=== PATIENT | female | born 1990 | race Two or more races ===

== ENCOUNTER → 2019-06-08 | Outpatient (REF) | payer OTHER ==
[2019-06-08 14:17] LABS: FREE T4 0.93 NG/DL (0.76-1.46)
[2019-06-09 08:52] LABS: THYROID PEROXIDASE ANTIBODY > 1300.0 U/ML (<60.0)
== END ==
LOC: M LABDRAW1 12:50
PROVIDERS: ATTEND Nurse Practitioner Family
DX: E06.3 Autoimmune thyroiditis (principal)

== ENCOUNTER → 2019-06-25 | Outpatient (CLI) | payer OTHER ==
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
== END ==
LOC: M PAIN 15:00
PROVIDERS: ATTEND Anesthesiology
DX: M54.5 Low back pain (principal); G89.29 Other chronic pain; M79.18 Myalgia, other site; Z86.59 Personal history of other mental and behavioral disorders; G47.00 Insomnia, unspecified; G43.909 Migraine, unspecified, not intractable, without status migrainosus; Z88.1 Allergy status to other antibiotic agents; Z88.5 Allergy status to narcotic agent; Z79.899 Other long term (current) drug therapy

== ENCOUNTER → 2019-06-28 | Outpatient (CLI) | payer OTHER ==
--- NOTE | 2019-06-28 13:11 | REP ---
Clinical: Pain. Status post ganglion cyst removal. Technique: AP and lateral views of the left wrist. Comparison: None. Findings: Osseous structures, joint spaces, and surrounding soft tissues appear normal. No obvious abnormality. Impression: Normal left wrist radiographs. Electronically Signed by Lionel Daniel MD 06/28/2019 01:02 P
== END ==
LOC: M LRY 12:47
PROVIDERS: ATTEND Nurse Practitioner Family
DX: Z98.890 Other specified postprocedural states (principal)
CPT/HCPCS: 73100; G0463

== ENCOUNTER → 2019-07-14 | Outpatient (CLI) | payer OTHER ==
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
== END ==
LOC: M PAIN 11:00
PROVIDERS: ATTEND Nurse Practitioner Family
DX: M79.18 Myalgia, other site (principal); Z86.59 Personal history of other mental and behavioral disorders; G47.00 Insomnia, unspecified; G43.909 Migraine, unspecified, not intractable, without status migrainosus; Z88.1 Allergy status to other antibiotic agents; Z88.5 Allergy status to narcotic agent; E66.01 Morbid (severe) obesity due to excess calories; Z68.42 Body mass index [BMI] 45.0-49.9, adult; Z79.899 Other long term (current) drug therapy

== ENCOUNTER → 2019-07-20 | Outpatient (CLI) | payer OTHER ==
[~2019-07-20] MED LIST: BUPIVACAINE HCL 0.25% 10 ML VIAL As Ordered ONE; BUPIVACAINE HCL 0.25% 30 ML VIAL As Ordered ONE; TRIAMCINOLONE ACETONIDE SUSP 40 MG/ML VIAL (J3301) As Ordered ONE; diazePAM 5 MG TAB As Ordered ONE; oxyCODONE 5MG TAB As Ordered ONE
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
== END ==
LOC: M PAIN 09:45
PROVIDERS: ATTEND Anesthesiology
DX: M79.18 Myalgia, other site (principal)
CPT/HCPCS: 20552; J3301

== ENCOUNTER → 2019-08-06 | Outpatient (CLI) | payer OTHER ==
--- NOTE | 2019-08-20 02:50 | ECWPNPC ---
PATIENT NAME: DIVINA CAI : 1990 GENDER: FEMALE VISIT DATE: 08/06/2019 DISCHARGE DATE: 08/06/19 1418 VISIT LOCKED DATE TIME: PHYSICIAN: CHAVEZ OSEGUERA RESOURCE: CHAVEZ OSEGUERA REASON FOR APPOINTMENT 1. POST TPI HISTORY OF PRESENT ILLNESS HISTORY OF PRESENT ILLNESS: HERE FOR POST PROCEDURE F/U.HAD TPI ACROSS LOW BACK ON 07/20/19.REPORTING A FEW DAYS OF IMPROVEMENT THEN PAIN ABRUPTLY RETURNED.SHE IS VERY UNCOMFORTABLE TODAY.STATES SHE HAS A MIGRAINE AND GETS THESES FREQUENTLY.HAS NOT HAD FORMAL TREATMENT FOR THEM IN HER PAST.RATING PAIN VAS 5-8/10.ATTENDING PT PER OUR ORDER AND HAVING A LITTLE AGGREVATION IN PAIN BUT SHE WANTS TO SEE HOW IT GOES SHE JUST GOT STARTED.REVIEWED MRIL/S SPINE AND DISCUSSED TREATMENT OPTIONS. PAIN THE PATIENT DESCRIBES THE PAIN... FALL RISK SCREENING: SCREENING :NO FALLS REPORTED IN THE LAST YEAR CURRENT MEDICATIONS TAKING AMITRIPTYLINE HCL 25 MG TABLET 1 TABLET AT BEDTIME ORALLY BEFORE BEDTIME, NOTES: 07/18/192099 PAST MEDICAL HISTORY DEPPRESSION/ANXIETY ISOMNIA HASHIMODOS CHRONIC PIN MIGRAINES ALLERGIES CEPHALEXIN: NAUSEA, VOMITING, SWEATING - SIDE EFFECTS HYDROCODONE-ACETAMINOPHEN: INCREASED HR, SWEATS - ALLERGY HYDROMORPHONE HCL: NAUSEA/VOMITING - SIDE EFFECTS CEPHALEXIN: INCREASED HR, SWEATS - ALLERGY HYDROCODONE-ACETAMINOPHEN: NAUSEA/VOMITING - SIDE EFFECTS SURGICAL HISTORY CYST REMOVED OFF LEFT WRIST 04/2018 GALLBLADDER GALLBLADDER REMOVED 08/2013 GANGLION CYST LEFT FAMILY HISTORY FATHER: ALIVE MOTHER: ALIVE 56 YRS SIBLINGS: ALIVE SON(S): ALIVE DAUGHTER(S): ALIVE 1 BROTHER(S) - HEALTHY. 1 SON(S) , 1 DAUGHTER(S) - HEALTHY. SOCIAL HISTORY GENERAL: TOBACCO USE ARE YOU A:NONSMOKER ARE YOU A:NONSMOKER HIV / HEP-C SCREENING HIV TEST OFFERED TO PATIENT:YES HIV TEST OFFERED TO PATIENT:YES DATE OFFERED:08/22/2018 DATE OFFERED:04/15/2019 TEST ACCEPTED:NO TEST ACCEPTED:NO HEP-C TEST OFFERED TO PATIENT:NO HEP-C TEST OFFERED TO PATIENT:NO REASON:PATIENT DECLINED REASON:PATIENT DECLINED BROCHURE PROVIDED TO PATIENTNO BROCHURE PROVIDED TO PATIENTYES OTHERS AT HOME: SPOUSE, CHILDREN. HOUSING: OWNS HOME. EDUCATION LEVEL OF EDUCATION:FINISHED HIGH SCHOOL DIET: REGULAR. LANGUAGE LANGUAGES SPOKEN:ROMANSH DOMESTIC VIOLENCE DO YOU FEEL SAFE IN YOUR ENVIRONMENT?YES RECREATIONAL DRUG USE DRUG USE?YES DRUG USE?YES MARIJUANA ON OCCASSION " NOT OFTEN" HOW OFTEN AND HOW MUCH? MARIJUANA - WHEN SHE IS VISITING [employer]. EXERCISE: DAILY. LEARNING BARRIERS / SPECIAL NEEDS CHANGE FROM LAST VISIT?NO BARRIERS TO LEARNING?NO BARRIERS TO LEARNING?NO HEARING IMPAIRED?NO HEARING IMPAIRED?NO VISION IMPAIRED?YES VISION IMPAIRED?YES COGNITIVELY IMPAIRED?NO COGNITIVELY IMPAIRED?NO :CORRECTIVE LENSES :CORRECTIVE LENSES READINESS TO LEARN?YES READINESS TO LEARN?YES LEARNING PREFERENCES?NO LEARNING PREFERENCES?NO LEARNING CAPABILITIES PRESENT?YES LEARNING CAPABILITIES PRESENT?YES EMOTIONAL BARRIERS?NO EMOTIONAL BARRIERS?NO SPECIAL DEVICES?NO SPECIAL DEVICES?NO ACCOUNTS PAYABLE SPECIALIST NEEDED?NO ACCOUNTS PAYABLE SPECIALIST NEEDED?NO PAIN CLINIC PFS, CLERGY, PUBLIC HEALTH REFERRALS HAS THE PATIENT BEEN EDUCATED REGARDING HIS/HER PLAN OF CARE?YES PATIENT EDUCATED REGARDING TPI PROCEDURE, ACKNOWLEDGED UNDERSTANDING HAS THE PATIENT BEEN EDUCATED REGARDING PAIN, THE RISK FOR PAIN, THE IMPORTANCE OF EFFECTIVE PAIN MANAGEMENT, AND THE PAIN ASSESSMENT PROCESS?YES LATEX QUESTIONNAIRE LATEX ALLERGY : HAVE YOU EVER DEVELOPED ANY TYPE OF REACTION AFTER HANDLING LATEX PRODUCTS SUCH RUBBER GLOVES, CONDOMS, DIAPHRAGMS, BALLOONS, SOCKS, OR UNDERWEAR?NO LATEX ALLERGY : HAVE YOU EVER DEVELOPED ANY TYPE OF REACTION DURING OR AFTER DENTAL APPOINTMENT, VAGINAL/RECTAL EXAMINATION, SURGICAL PROCEDURE, OR ANY OTHER EXPOSURE?NO DATE ASKED : 07/20/2019 LATEX RISK : HAVE YOU EVER HAD ANY DIFFICULTY BREATHING OR HIVES AFTER EATING OR HANDLING ANY FRUITS, OR VEGETABLES; SUCH KIWI, BANANAS, STONE FRUITS, OR CHESTNUTSNO LATEX RISK : DO YOU HAVE A PREVIOUS PERSONAL HISTORY OF MORE THAN NINE SURGERIES, SPINA BIFIDA, OR REPEATED CATHERIZATIONS? NO LATEX RISK : ARE YOU FREQUENTLY EXPOSED TO LATEX PRODUCTS IN YOUR OCCUPATION?NO CAFFEINE CAFFEINE USE?YES CAFFEINE USE?YES SODA AND TEA DAILY HOW OFTEN AND HOW MUCH? SODA, TEA ADVANCE DIRECTIVE ADVANCE DIRECTIVE DISCUSSED WITH PATIENT:YES PT STATES THAT SHE DOES NOT HAVE HCP, PT DECLINES ASSISTANCE OR INFORMATION AT THIS TIME JAINISM [id number] NONE MARITAL STATUS: . ALCOHOL SCREENING DID YOU HAVE A DRINK CONTAINING ALCOHOL IN THE PAST YEAR?YES DID YOU HAVE A DRINK CONTAINING ALCOHOL IN THE PAST YEAR?YES HOW OFTEN DID YOU HAVE SIX OR MORE DRINKS ON ONE OCCASION IN THE PAST YEAR?NEVER (0 POINTS) HOW MANY DRINKS DID YOU HAVE ON A TYPICAL DAY WHEN YOU WERE DRINKING IN THE PAST YEAR?1 OR 2 (0 POINTS) HOW MANY DRINKS DID YOU HAVE ON A TYPICAL DAY WHEN YOU WERE DRINKING IN THE PAST YEAR?1 OR 2 (0 POINTS) HOW OFTEN DID YOU HAVE A DRINK CONTAINING ALCOHOL IN THE PAST YEAR?MONTHLY OR LESS (1 POINT) HOW OFTEN DID YOU HAVE A DRINK CONTAINING ALCOHOL IN THE PAST YEAR?MONTHLY OR LESS (1 POINT) POINTS1 POINTS1 INTERPRETATIONNEGATIVE INTERPRETATIONNEGATIVE 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 SEXUAL HX HAD SEX IN THE LAST 12 MONTHS (VAGINAL, ORAL, OR ANAL)?YES WITHMEN ONLY USE PROTECTION?YES HOW OFTEN?SOME OF THE TIME HAVE YOU EVER HAD AN STD?NO REVIEWED WITH PATIENT 07/20/19 1052 NLJ. HOSPITALIZATION/MAJOR DIAGNOSTIC PROCEDURE ABOVE REVIEW OF SYSTEMS REVIEWED BY: PROVIDER: CHAVEZ PEREZ . CONSTITUTIONAL: ANY CHANGE IN YOUR MEDICAL CONDITION? NO . CHILLS NO . FEVER NO . INFECTION: DO YOU HAVE NEW INFECTIONS? NO . DO YOU HAVE HISTORY OF MRSA? NO . MUSCULOSKELETAL: ANY NEW PATTERNS OF PAIN OR NUMBNESS? NO . GASTROENTEROLOGY: ANY NEW CHANGE IN BOWEL CONTROL? NO . GENITOURINARY: ANY NEW CHANGE IN BLADDER CONTROL? NO . IS THERE A CHANCE YOU COULD BE ? NO . HEMATOLOGY/LYMPH: DO YOU TAKE ANY BLOOD THINNERS? (FOR EXAMPLE- COUMADIN, PLAVIX, AGGRENOX, PLATEL, PRADAXA, OR XARELTO) NO . WHEN WAS YOUR LAST DOSE? DATE: TIME: . NEUROLOGY: HAVE YOU FALLEN IN THE PAST 12 MONTHS? NO . ANY NEW EXTREMITY NUMBNESS OR WEAKNESS? NO . CARDIOLOGY: DO YOU HAVE A PACEMAKER OR DEFIBRILLATOR? NO . RESPIRATORY: HAVE YOU BEEN SICK IN THE PAST WEEK? NO . FEVER NO . FLU LIKE SYMPTOMS? NO . COUGH NO . INTEGUMENTARY: DO YOU HAVE ANY RASHES OR OPEN SORES? NO . ALLERGIC/IMMUNO: ARE YOU ALLERGIC TO IV DYE? NO . ANY NEW ALLERGIES? NO . PSYCHIATRIC: DO YOU HAVE THOUGHTS OF HURTING YOURSELF OR SOMEONE ELSE? NO . ARE YOU ABUSED, NEGLECTED, OR IN AN UNSAFE ENVIRONMENT? NO . ENDOCRINOLOGY: ARE YOU DIABETIC? NO . OTHER: DO YOU NEED ANY PRESCRIPTIONS? NO . IF YES, PLEASE LIST: ____ . ANY NEW PROBLEMS WITH YOUR MEDICATIONS? NO . WHEN DID YOU LAST EAT? ____ . WHEN DID YOU LAST DRINK? ____ . WHAT DID YOU LAST DRINK? ____ . NAME OF PERSON DRIVING YOU HOME? ____ . DO YOU HAVE ANY OTHER QUESTIONS OR CONCERNS NO . VITAL SIGNS WT 158.0 LBS, HT 4'10, BMI 48.21 INDEX, BP 139/86 MM HG, HR 87 /MIN, RR 18 /MIN, TEMP 98.5 F, OXYGEN SAT % 98%, SAFE IN ENV? (Y/N) YES, NA INITIALS AW 1326. EXAMINATION GENERAL EXAMINATION: GENERAL AWAKE,ALERT ,PLEASANT . PSYCH AFFECT NORMAL . LUNGS: LUNG VILLAGOMEZ ARE CLEAR TO AUSCULTATION BILATERALLY. GOOD MOVEMENT OF AIR . HEART: S1, S2 IN A REGULAR RATE AND RHYTHM. NO SIGNIFICANT MURMURS, RUBS OR GALLOPS NOTED . DIAGNOSTIC TESTS REVIEWED MRI L/S SPINE-09/24/18. 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 IT IS NOT A COPY OF THE [employer] PROGRESS NOTE. GUILHERME
== END ==
LOC: M PAIN 13:15
PROVIDERS: ATTEND Nurse Practitioner Family
DX: M79.18 Myalgia, other site (principal); G44.009 Cluster headache syndrome, unspecified, not intractable; Z86.59 Personal history of other mental and behavioral disorders; G47.00 Insomnia, unspecified; Z88.1 Allergy status to other antibiotic agents; Z88.5 Allergy status to narcotic agent; E66.01 Morbid (severe) obesity due to excess calories; Z68.42 Body mass index [BMI] 45.0-49.9, adult; Z79.899 Other long term (current) drug therapy

== ENCOUNTER → 2019-08-18 | Outpatient (CLI) | payer OTHER ==
--- NOTE | 2019-08-18 10:07 | REP ---
Gastric emptying nuclear scintigraphy: History: Early satiety and nausea. Technique: 1.1 mCi of technetium-99m sulfur colloid was ingested in two scrambled eggs and 6 ounces of water and sequential anterior and posterior images are acquired for an 89-minute imaging observation period. Regions of interest are drawn around the stomach to plot gastric emptying. Scintigraphic findings: Expected T1/2 is 90 minutes. 50 % emptying is observed in this patient during the 89-minute imaging observation period, for a calculated T1/2 in this patient of 80 minutes. Impression: Normal gastric emptying. Electronically Signed by Cash Ramirez MD 08/18/2019 09:58 A
== END ==
LOC: M RAD 07:46
PROVIDERS: ATTEND Physician Assistant Medical
DX: R68.81 Early satiety (principal); R11.0 Nausea
CPT/HCPCS: 78264; A9541

== ENCOUNTER → 2019-08-31 | Outpatient (RCR) | payer OTHER | LOC: M PT 08-03 12:12 | PROVIDERS: ATTEND Nurse Practitioner Family | DX: M79.18 Myalgia, other site (principal) ==

== ENCOUNTER → 2019-09-17 | Outpatient (CLI) | payer OTHER ==
[~2019-09-17] MED LIST changes: +AMIT25TA PO; -BUPIVACAINE HCL 0.25% 10 ML VIAL As Ordered ONE; -BUPIVACAINE HCL 0.25% 30 ML VIAL As Ordered ONE; +TOPI25TA10 PO; -TRIAMCINOLONE ACETONIDE SUSP 40 MG/ML VIAL (J3301) As Ordered ONE; -diazePAM 5 MG TAB As Ordered ONE; -oxyCODONE 5MG TAB As Ordered ONE
--- NOTE | 2019-10-05 04:17 | ECWPNPC ---
PATIENT NAME: DIVINA CAI : 1990 GENDER: FEMALE VISIT DATE: 09/17/2019 DISCHARGE DATE: 09/17/19 1132 VISIT LOCKED DATE TIME: PHYSICIAN: CHAVEZ OSEGUERA RESOURCE: CHAVEZ OSEGUERA REASON FOR APPOINTMENT 1. BACK PAIN HISTORY OF PRESENT ILLNESS HISTORY OF PRESENT ILLNESS: HERE FOR FOLLOW-UP OF CHRONIC BACK PAIN. STARTED TOPAMAX 25 MG TWICE A DAY AT LAST VISIT. REPORTING LESS FREQUENT MIGRAINE HEADACHE. ATTENDING PHYSICAL THERAPY FOR LOW BACK PAIN AND SHE FINDS IT HELPFUL. REPORTING SEVERE TIGHTNESS IN THE UPPER BACK REGION. RATING PAIN LEVEL 6-7/10 VAS. PAIN THE PATIENT DESCRIBES THE PAIN... FALL RISK SCREENING: SCREENING :NO FALLS REPORTED IN THE LAST YEAR CURRENT MEDICATIONS TAKING AMITRIPTYLINE HCL 25 MG TABLET 1 TABLET AT BEDTIME ORALLY BEFORE BEDTIME TAKING TOPAMAX 25 MG TABLET 1 TABLET ORALLY BID MEDICATION LIST REVIEWED AND RECONCILED WITH THE PATIENT PAST MEDICAL HISTORY MEDICAL HISTORY VERIFIED. ALLERGIES CEPHALEXIN: NAUSEA, VOMITING, SWEATING - SIDE EFFECTS HYDROCODONE-ACETAMINOPHEN: INCREASED HR, SWEATS - ALLERGY HYDROMORPHONE HCL: NAUSEA/VOMITING - SIDE EFFECTS CEPHALEXIN: INCREASED HR, SWEATS - ALLERGY HYDROCODONE-ACETAMINOPHEN: NAUSEA/VOMITING - SIDE EFFECTS SURGICAL HISTORY CYST REMOVED OFF LEFT WRIST 04/2018 GALLBLADDER GALLBLADDER REMOVED 08/2013 GANGLION CYST LEFT FAMILY HISTORY FATHER: ALIVE MOTHER: ALIVE 56 YRS SIBLINGS: ALIVE SON(S): ALIVE DAUGHTER(S): ALIVE 1 BROTHER(S) - HEALTHY. 1 SON(S) , 1 DAUGHTER(S) - HEALTHY. SOCIAL HISTORY GENERAL: TOBACCO USE ARE YOU A:NONSMOKER ARE YOU A:NONSMOKER HIV / HEP-C SCREENING HIV TEST OFFERED TO PATIENT:YES HIV TEST OFFERED TO PATIENT:YES DATE OFFERED:08/22/2018 DATE OFFERED:04/15/2019 TEST ACCEPTED:NO TEST ACCEPTED:NO HEP-C TEST OFFERED TO PATIENT:NO HEP-C TEST OFFERED TO PATIENT:NO REASON:PATIENT DECLINED REASON:PATIENT DECLINED BROCHURE PROVIDED TO PATIENTNO BROCHURE PROVIDED TO PATIENTYES OTHERS AT HOME: SPOUSE, CHILDREN. HOUSING: OWNS HOME. EDUCATION LEVEL OF EDUCATION:FINISHED HIGH SCHOOL DIET: REGULAR. LANGUAGE LANGUAGES SPOKEN:[place] DOMESTIC VIOLENCE DO YOU FEEL SAFE IN YOUR ENVIRONMENT?YES RECREATIONAL DRUG USE DRUG USE?YES DRUG USE?YES MARIJUANA ON OCCASSION " NOT OFTEN" HOW OFTEN AND HOW MUCH? MARIJUANA - WHEN SHE IS VISITING [place]. EXERCISE: DAILY. LEARNING BARRIERS / SPECIAL NEEDS CHANGE FROM LAST VISIT?NO BARRIERS TO LEARNING?NO BARRIERS TO LEARNING?NO HEARING IMPAIRED?NO HEARING IMPAIRED?NO VISION IMPAIRED?YES VISION IMPAIRED?YES COGNITIVELY IMPAIRED?NO COGNITIVELY IMPAIRED?NO :CORRECTIVE LENSES :CORRECTIVE LENSES READINESS TO LEARN?YES READINESS TO LEARN?YES LEARNING PREFERENCES?NO LEARNING PREFERENCES?NO LEARNING CAPABILITIES PRESENT?YES LEARNING CAPABILITIES PRESENT?YES EMOTIONAL BARRIERS?NO EMOTIONAL BARRIERS?NO SPECIAL DEVICES?NO SPECIAL DEVICES?NO GENERAL PARTNER NEEDED?NO GENERAL PARTNER NEEDED?NO PAIN CLINIC PFS, CLERGY, PUBLIC HEALTH REFERRALS WAS THE PROVIDER NOTIFIED OF ANY PERTINENT INFO?YES HAS THE PATIENT BEEN EDUCATED REGARDING HIS/HER PLAN OF CARE?YES PATIENT EDUCATED REGARDING TPI PROCEDURE, ACKNOWLEDGED UNDERSTANDING HAS THE PATIENT BEEN EDUCATED REGARDING PAIN, THE RISK FOR PAIN, THE IMPORTANCE OF EFFECTIVE PAIN MANAGEMENT, AND THE PAIN ASSESSMENT PROCESS?YES LATEX QUESTIONNAIRE LATEX ALLERGY : HAVE YOU EVER DEVELOPED ANY TYPE OF REACTION AFTER HANDLING LATEX PRODUCTS SUCH RUBBER GLOVES, CONDOMS, DIAPHRAGMS, BALLOONS, SOCKS, OR UNDERWEAR?NO LATEX ALLERGY : HAVE YOU EVER DEVELOPED ANY TYPE OF REACTION DURING OR AFTER DENTAL APPOINTMENT, VAGINAL/RECTAL EXAMINATION, SURGICAL PROCEDURE, OR ANY OTHER EXPOSURE?NO LATEX RISK : HAVE YOU EVER HAD ANY DIFFICULTY BREATHING OR HIVES AFTER EATING OR HANDLING ANY FRUITS, OR VEGETABLES; SUCH KIWI, BANANAS, STONE FRUITS, OR CHESTNUTSNO LATEX RISK : DO YOU HAVE A PREVIOUS PERSONAL HISTORY OF MORE THAN NINE SURGERIES, SPINA BIFIDA, OR REPEATED CATHERIZATIONS? NO LATEX RISK : ARE YOU FREQUENTLY EXPOSED TO LATEX PRODUCTS IN YOUR OCCUPATION?NO DATE ASKED : 09/17/2019 CAFFEINE CAFFEINE USE?YES CAFFEINE USE?YES SODA AND TEA DAILY HOW OFTEN AND HOW MUCH? SODA, TEA ADVANCE DIRECTIVE ADVANCE DIRECTIVE DISCUSSED WITH PATIENT:YES PT STATES THAT SHE DOES NOT HAVE HCP, PT DECLINES ASSISTANCE OR INFORMATION AT THIS TIME RELIGIOUS [id number] NONE MARITAL STATUS: . ALCOHOL SCREENING DID YOU HAVE A DRINK CONTAINING ALCOHOL IN THE PAST YEAR?YES DID YOU HAVE A DRINK CONTAINING ALCOHOL IN THE PAST YEAR?YES HOW OFTEN DID YOU HAVE SIX OR MORE DRINKS ON ONE OCCASION IN THE PAST YEAR?NEVER (0 POINTS) HOW MANY DRINKS DID YOU HAVE ON A TYPICAL DAY WHEN YOU WERE DRINKING IN THE PAST YEAR?1 OR 2 (0 POINTS) HOW MANY DRINKS DID YOU HAVE ON A TYPICAL DAY WHEN YOU WERE DRINKING IN THE PAST YEAR?1 OR 2 (0 POINTS) HOW OFTEN DID YOU HAVE A DRINK CONTAINING ALCOHOL IN THE PAST YEAR?MONTHLY OR LESS (1 POINT) HOW OFTEN DID YOU HAVE A DRINK CONTAINING ALCOHOL IN THE PAST YEAR?MONTHLY OR LESS (1 POINT) POINTS1 POINTS1 INTERPRETATIONNEGATIVE INTERPRETATIONNEGATIVE 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 SEXUAL HX HAD SEX IN THE LAST 12 MONTHS (VAGINAL, ORAL, OR ANAL)?YES WITHMEN ONLY USE PROTECTION?YES HOW OFTEN?SOME OF THE TIME HAVE YOU EVER HAD AN STD?NO REVIEWED WITH PATIENT 07/20/19 1052 [id number] REVIEWED WITH PATIENT DS. HOSPITALIZATION/MAJOR DIAGNOSTIC PROCEDURE ABOVE REVIEW OF SYSTEMS REVIEWED BY: PROVIDER: CHAVEZ PEREZ . CONSTITUTIONAL: ANY CHANGE IN YOUR MEDICAL CONDITION? NO . CHILLS NO . FEVER NO . INFECTION: DO YOU HAVE NEW INFECTIONS? NO . DO YOU HAVE HISTORY OF MRSA? NO . MUSCULOSKELETAL: ANY NEW PATTERNS OF PAIN OR NUMBNESS? NO . GASTROENTEROLOGY: ANY NEW CHANGE IN BOWEL CONTROL? NO . GENITOURINARY: ANY NEW CHANGE IN BLADDER CONTROL? NO . IS THERE A CHANCE YOU COULD BE ? NO . HEMATOLOGY/LYMPH: DO YOU TAKE ANY BLOOD THINNERS? (FOR EXAMPLE- COUMADIN, PLAVIX, AGGRENOX, PLATEL, PRADAXA, OR XARELTO) NO . WHEN WAS YOUR LAST DOSE? DATE: TIME: . NEUROLOGY: HAVE YOU FALLEN IN THE PAST 12 MONTHS? NO . ANY NEW EXTREMITY NUMBNESS OR WEAKNESS? YES, PT STATES THAT SHE RECEIVED INJECTION BEFORE , DIDNT RECEIVE MUCH RELIEF, LASTED ONLY FOR 1 WEEK, PAIN HAS RETURNED . CARDIOLOGY: DO YOU HAVE A PACEMAKER OR DEFIBRILLATOR? NO . RESPIRATORY: HAVE YOU BEEN SICK IN THE PAST WEEK? NO . FEVER NO . FLU LIKE SYMPTOMS? NO . COUGH NO . INTEGUMENTARY: DO YOU HAVE ANY RASHES OR OPEN SORES? NO . ALLERGIC/IMMUNO: ARE YOU ALLERGIC TO IV DYE? NO . ANY NEW ALLERGIES? NO . PSYCHIATRIC: DO YOU HAVE THOUGHTS OF HURTING YOURSELF OR SOMEONE ELSE? NO . ARE YOU ABUSED, NEGLECTED, OR IN AN UNSAFE ENVIRONMENT? NO . ENDOCRINOLOGY: ARE YOU DIABETIC? NO . OTHER: DO YOU NEED ANY PRESCRIPTIONS? NO . IF YES, PLEASE LIST: ____ . ANY NEW PROBLEMS WITH YOUR MEDICATIONS? NO . WHEN DID YOU LAST EAT? ____ . WHEN DID YOU LAST DRINK? ____ . WHAT DID YOU LAST DRINK? ____ . NAME OF PERSON DRIVING YOU HOME? ____ . DO YOU HAVE ANY OTHER QUESTIONS OR CONCERNS NO . VITAL SIGNS WT 153.4 LBS, HT 4'10, BMI 46.81 INDEX, BP 132/76 MM HG, HR 106 /MIN, RR 18 /MIN, TEMP 97.8 F, OXYGEN SAT % 100, SAFE IN ENV? (Y/N) Y, REVIEWED BY: LISA. EXAMINATION GENERAL EXAMINATION: GENERALAWAKE,ALERT ,PLEAASANT . PSYCHAFFECT NORMAL . LUNGS:LUNG VILLAGOMEZ ARE CLEAR TO AUSCULTATION BILATERALLY. GOOD MOVEMENT OF AIR . HEART:S1, S2 IN A REGULAR RATE AND RHYTHM. NO SIGNIFICANT MURMURS, RUBS OR GALLOPS NOTED . CERVICAL:TRIGGER POINTS: CERVICAL AND TRAPEZIUS BILAT..PAIN IS AGGREVATED WITH ROJM NECK. ASSESSMENTS LOW BACK PAIN - M54.5 (PRIMARY) MYALGIA, OTHER SITE - M79.18 TREATMENT LOW BACK PAIN NOTES: TRIGGER POINT INJECTION UPPER BACK, BILATERAL , CONTINUE PT OF LOW BACK 2 TIMES A WEEK 6 WEEKS. . PREVENTIVE MEDICINE PAIN CLINIC TEACHING: THE PATIENT HAS BEEN EDUCATED REGARDING PAIN, THE RISK FOR PAIN, THE IMPORTANCE OF EFFECTIVE PAIN MANAGEMENT, AND THE PAIN ASSESSMENT PROCESS. : REVIEWED AND DISCUSSED TREATMENT PLAN WITH PATIENT, REVIEWED PRE-PROCEDURE INSTRUCTIONS, REVIEWED PT ORDERS WITH PATIENT, PT ACKNOWLEDGED UNDERSTANDING. LISA PROCEDURE CODES FA211 ESTABILISHED PATIENT [facility] CHARGE DISPOSITION & COMMUNICATION FOLLOW UP POST (REASON: TRIGGER POINT INJECTION UPPER BACK, BILATERAL) ELECTRONICALLY SIGNED BY ANA LEIGH ON 10/04/2019 AT 04:24 PM EST DISCLAIMER : THIS IS A VISIT SUMMARY EXTRACTED FROM THE [employer] CHART. IT IS NOT A COPY OF THE [employer] PROGRESS NOTE. GUILHERME
== END ==
LOC: M PAIN 10:30
PROVIDERS: ATTEND Nurse Practitioner Family
DX: M54.5 Low back pain (principal); M79.18 Myalgia, other site; Z88.1 Allergy status to other antibiotic agents; Z88.5 Allergy status to narcotic agent; E66.01 Morbid (severe) obesity due to excess calories; Z68.42 Body mass index [BMI] 45.0-49.9, adult; Z79.899 Other long term (current) drug therapy

== ENCOUNTER 2019-09-21 09:49 | Outpatient (RCR) | payer OTHER | END 2019-10-01 | LOC: M PT 09:49 | PROVIDERS: ATTEND Nurse Practitioner Family | DX: M54.5 Low back pain (principal); M79.18 Myalgia, other site ==

== ENCOUNTER → 2019-10-14 | Outpatient (REF) | payer OTHER ==
[2019-10-14 16:38] LABS: FREE T4 1.02 NG/DL (0.76-1.46); THYROID STIMULATING HORMONE 2.76 uIU/ML (0.358-3.740)
== END ==
LOC: M LABDRAW1 13:05
PROVIDERS: ATTEND Nurse Practitioner Family
DX: E28.2 Polycystic ovarian syndrome (principal); E06.3 Autoimmune thyroiditis

== ENCOUNTER → 2019-11-12 | Outpatient (CLI) | payer OTHER ==
[~2019-11-12] MED LIST changes: +BUPIVACAINE HCL 0.25% 30 ML VIAL As Ordered ONE; +TRIAMCINOLONE ACETONIDE SUSP 40 MG/ML VIAL (J3301) As Ordered ONE; +diazePAM 5 MG TAB As Ordered ONE; +oxyCODONE 5MG TAB As Ordered ONE
--- NOTE | 2019-11-26 01:07 | ECWPNPC ---
PATIENT NAME: DIVINA CAI : 1990 GENDER: FEMALE VISIT DATE: 11/12/2019 DISCHARGE DATE: 11/12/19 1035 VISIT LOCKED DATE TIME: PHYSICIAN: QIAN BATES MD RESOURCE: QIAN BATES MD REASON FOR APPOINTMENT 1. TPI THORACIC HISTORY OF PRESENT ILLNESS HISTORY OF PRESENT ILLNESS: PAIN THE PATIENT DESCRIBES THE PAIN... FALL RISK SCREENING: SCREENING :NO FALLS REPORTED IN THE LAST YEAR CURRENT MEDICATIONS TAKING AMITRIPTYLINE HCL 25 MG TABLET 1 TABLET AT BEDTIME ORALLY BEFORE BEDTIME, NOTES: 11/09 TAKING TOPAMAX 25 MG TABLET 1 TABLET ORALLY BID, NOTES: 11/10 NOT-TAKING TAMIFLU 75 MG CAPSULE 1 CAPSULE ORALLY TWICE A DAY MEDICATION LIST REVIEWED AND RECONCILED WITH THE PATIENT PAST MEDICAL HISTORY POLY CYSTIC OVARIAN SYNDROME ALLERGIES HYDROCODONE-ACETAMINOPHEN: INCREASED HR, SWEATS - ALLERGY CEPHALEXIN: INCREASED HR, SWEATS, VOMITING - ALLERGY SURGICAL HISTORY CYST REMOVED OFF LEFT WRIST 04/2018 GALLBLADDER GALLBLADDER REMOVED 08/2013 GANGLION CYST LEFT FAMILY HISTORY FATHER: ALIVE MOTHER: ALIVE 56 YRS SIBLINGS: ALIVE SON(S): ALIVE DAUGHTER(S): ALIVE 1 BROTHER(S) - HEALTHY. 1 SON(S) , 1 DAUGHTER(S) - HEALTHY. SOCIAL HISTORY GENERAL: TOBACCO USE ARE YOU A:NONSMOKER ARE YOU A:NONSMOKER HIV / HEP-C SCREENING HIV TEST OFFERED TO PATIENT:YES DATE OFFERED:10/04/2019 TEST ACCEPTED:NO HEP-C TEST OFFERED TO PATIENT:NO REASON:PATIENT DECLINED BROCHURE PROVIDED TO PATIENTNO OTHERS AT HOME: SPOUSE, CHILDREN. HOUSING: OWNS HOME. EDUCATION LEVEL OF EDUCATION:FINISHED HIGH SCHOOL DIET: REGULAR. LANGUAGE LANGUAGES SPOKEN:CITIZEN OF [place] AND [place] DOMESTIC VIOLENCE DO YOU FEEL SAFE IN YOUR ENVIRONMENT?YES RECREATIONAL DRUG USE DRUG USE?YES MARIJUANA ON OCCASSION " NOT OFTEN" DRUG USE?YES HOW OFTEN AND HOW MUCH? MARIJUANA - WHEN SHE IS VISITING [place]. EXERCISE: DAILY. 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 CLINIC PFS, CLERGY, PUBLIC HEALTH REFERRALS WAS THE PROVIDER NOTIFIED OF ANY PERTINENT INFO?YES HAS THE PATIENT BEEN EDUCATED REGARDING HIS/HER PLAN OF CARE?YES PATIENT EDUCATED REGARDING TPI PROCEDURE, ACKNOWLEDGED UNDERSTANDING HAS THE PATIENT BEEN EDUCATED REGARDING PAIN, THE RISK FOR PAIN, THE IMPORTANCE OF EFFECTIVE PAIN MANAGEMENT, AND THE PAIN ASSESSMENT PROCESS?YES LATEX QUESTIONNAIRE LATEX ALLERGY : HAVE YOU EVER DEVELOPED ANY TYPE OF REACTION AFTER HANDLING LATEX PRODUCTS SUCH RUBBER GLOVES, CONDOMS, DIAPHRAGMS, BALLOONS, SOCKS, OR UNDERWEAR?NO LATEX ALLERGY : HAVE YOU EVER DEVELOPED ANY TYPE OF REACTION DURING OR AFTER DENTAL APPOINTMENT, VAGINAL/RECTAL EXAMINATION, SURGICAL PROCEDURE, OR ANY OTHER EXPOSURE?NO LATEX RISK : HAVE YOU EVER HAD ANY DIFFICULTY BREATHING OR HIVES AFTER EATING OR HANDLING ANY FRUITS, OR VEGETABLES; SUCH KIWI, BANANAS, STONE FRUITS, OR CHESTNUTSNO LATEX RISK : DO YOU HAVE A PREVIOUS PERSONAL HISTORY OF MORE THAN NINE SURGERIES, SPINA BIFIDA, OR REPEATED CATHERIZATIONS? NO LATEX RISK : ARE YOU FREQUENTLY EXPOSED TO LATEX PRODUCTS IN YOUR OCCUPATION?NO DATE ASKED : 11/12/2019 CAFFEINE CAFFEINE USE?YES SODA AND TEA DAILY CAFFEINE USE?YES HOW OFTEN AND HOW MUCH? SODA, TEA ADVANCE DIRECTIVE ADVANCE DIRECTIVE DISCUSSED WITH PATIENT:YES PT STATES THAT SHE DOES NOT HAVE HCP, PT DECLINES ASSISTANCE OR INFORMATION AT THIS TIME ADVENTIST [id number] NONE MARITAL STATUS: . ALCOHOL SCREENING DID YOU HAVE A DRINK CONTAINING ALCOHOL IN THE PAST YEAR?YES DID YOU HAVE A DRINK CONTAINING ALCOHOL IN THE PAST YEAR?YES HOW OFTEN DID YOU HAVE SIX OR MORE DRINKS ON ONE OCCASION IN THE PAST YEAR?NEVER (0 POINTS) HOW MANY DRINKS DID YOU HAVE ON A TYPICAL DAY WHEN YOU WERE DRINKING IN THE PAST YEAR?1 OR 2 (0 POINTS) HOW MANY DRINKS DID YOU HAVE ON A TYPICAL DAY WHEN YOU WERE DRINKING IN THE PAST YEAR?1 OR 2 (0 POINTS) HOW OFTEN DID YOU HAVE A DRINK CONTAINING ALCOHOL IN THE PAST YEAR?MONTHLY OR LESS (1 POINT) HOW OFTEN DID YOU HAVE A DRINK CONTAINING ALCOHOL IN THE PAST YEAR?MONTHLY OR LESS (1 POINT) POINTS1 POINTS1 INTERPRETATIONNEGATIVE INTERPRETATIONNEGATIVE 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 SEXUAL HX HAD SEX IN THE LAST 12 MONTHS (VAGINAL, ORAL, OR ANAL)?YES WITHMEN ONLY USE PROTECTION?YES HOW OFTEN?SOME OF THE TIME HAVE YOU EVER HAD AN STD?NO HOSPITALIZATION/MAJOR DIAGNOSTIC PROCEDURE ABOVE REVIEW OF SYSTEMS REVIEWED BY: PROVIDER: . CONSTITUTIONAL: ANY CHANGE IN YOUR MEDICAL CONDITION? RECETNLY DIAGNOSED WITH POLY CYSTIC OVARIAN SYNDROME . CHILLS NO . FEVER NO . INFECTION: DO YOU HAVE NEW INFECTIONS? NO . DO YOU HAVE HISTORY OF MRSA? NO . MUSCULOSKELETAL: ANY NEW PATTERNS OF PAIN OR NUMBNESS? NO . GASTROENTEROLOGY: ANY NEW CHANGE IN BOWEL CONTROL? NO . GENITOURINARY: ANY NEW CHANGE IN BLADDER CONTROL? NO . IS THERE A CHANCE YOU COULD BE ? NO . HEMATOLOGY/LYMPH: DO YOU TAKE ANY BLOOD THINNERS? (FOR EXAMPLE- COUMADIN, PLAVIX, AGGRENOX, PLATEL, PRADAXA, OR XARELTO) NO . WHEN WAS YOUR LAST DOSE? DATE: TIME: . NEUROLOGY: HAVE YOU FALLEN IN THE PAST 12 MONTHS? NO . ANY NEW EXTREMITY NUMBNESS OR WEAKNESS? NO . CARDIOLOGY: DO YOU HAVE A PACEMAKER OR DEFIBRILLATOR? NO . RESPIRATORY: HAVE YOU BEEN SICK IN THE PAST WEEK? NO . FEVER NO . FLU LIKE SYMPTOMS? NO . COUGH NO . INTEGUMENTARY: DO YOU HAVE ANY RASHES OR OPEN SORES? NO . ALLERGIC/IMMUNO: ARE YOU ALLERGIC TO IV DYE? NO . ANY NEW ALLERGIES? NO . PSYCHIATRIC: DO YOU HAVE THOUGHTS OF HURTING YOURSELF OR SOMEONE ELSE? NO . ARE YOU ABUSED, NEGLECTED, OR IN AN UNSAFE ENVIRONMENT? NO . ENDOCRINOLOGY: ARE YOU DIABETIC? NO . OTHER: DO YOU NEED ANY PRESCRIPTIONS? NO . IF YES, PLEASE LIST: ____ . ANY NEW PROBLEMS WITH YOUR MEDICATIONS? NO . WHEN DID YOU LAST EAT? 11/10 3PM . WHEN DID YOU LAST DRINK? 11/11 7AM . WHAT DID YOU LAST DRINK? WATER . NAME OF PERSON DRIVING YOU HOME? BHARAT . DO YOU HAVE ANY OTHER QUESTIONS OR CONCERNS NO . VITAL SIGNS WT 147 LBS, HT 4'10, BMI 44.85 INDEX, BP 132/84 MM HG, HR 65 /MIN, RR 18 /MIN, TEMP 97.1 F, OXYGEN SAT % 100%, SAFE IN ENV? (Y/N) Y, NA INITIALS AW 0919, REVIEWED BY: LISA. ASSESSMENTS MYALGIA, OTHER SITE - M79.18 (PRIMARY) PROCEDURES PN TRIGGER POINT INJECTION WITH STEROIDS PRE PROCEDURE DIAGNOSIS 1. MYALGIA 2. PAIN AT BILATERAL THORACIC AREA. POST PROCEDURE DIAGNOSIS 1. MYALGIA 2. PAIN AT BILATERAL THORACIC AREA. PROCEDURE TRIGGER POINT INJECTION AT RIGHT AND LEFT THORACIC AREA. 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 I EVALUATED THE PATIENT AND REVIEWED THE CHART. THERE IS EVIDENCE OF BANDS OF TISSUE WITH RESTRICTION OF MOVEMENT AND PRESENCE OF TRIGGER POINT AT THE AFFECTED AREA. I WENT OVER THE RISKS, ALTERNATIVES, AND BENEFITS ASSOCIATED WITH THIS PROCEDURE. THE PATIENT WOULD LIKE TO PROCEED AND GIVE CONSENT TO PERFORMED THE PROCEDURE. THE PATIENT DENIES UNEXPLAINABLE WEIGHT LOSS, FEVER, CHILLS, OR NEW CHANGES IN URINARY OR BOWEL CONTROL DESCRIPTION OF PROCEDURE THE PATIENT WAS BROUGHT TO THE PROCEDURE ROOM AND PLACED IN THE SITTING POSITION. THE AREA WAS CLEANED WITH ALCOHOL. THE PROCEDURE WAS DONE USING ASEPTIC STERILE TECHNIQUE. I CHECKED LATERALITY AND THE LEVEL WHERE THE PROCEDURE WAS GOING TO BE PERFORMED WITH THE PATIENT AND THE SUPPORTING STAFF AT THE MOMENT OF THE TIME OUT IN THE PROCEDURE ROOM. USING A 25-GAUGE NEEDLE, TRIGGER POINTS WERE INJECTED AT THE RIGHT AND LEFT THORACIC AREA WITH A TOTAL OF 40 ML OF BUPIVACAINE 0.25% AND KENALOG 40 MG. THERE WAS NO EVIDENCE OF BLOOD, PARESTHESIA OR CEREBROSPINAL FLUID DURING THE PROCEDURE. THE PATIENT WAS SENT TO THE RECOVERY ROOM. THE PATIENT WAS MOVING THE EXTREMITIES AND DOING WELL. THERE WAS NO COMPLICATION DURING THE PROCEDURE POST PROCEDURE NOTE THE PATIENT WILL BE SEEN IN A FOLLOW UP IN THE NEXT FEW WEEKS. INSTRUCTIONS WERE GIVEN, QUESTIONS WERE ANSWERED, AND THE PATIENT EXPRESSED UNDERSTANDING AND AGREES WITH THE PLAN. I, AURELIANO RAMIREZ, DOCUMENTED THE ABOVE INFORMATION ACTING A SCRIBE FOR DR. BATES. I HAVE REVIEWED THE ABOVE DOCUMENT, WRITTEN BY AURELIANO JUAN AND I VERIFY THAT IT IS ACCURATE. PROCEDURE CODES 01587 INJ TRIGGER POINT 09/02 [facility] [place] COMMUNICATION FOLLOW UP 3 WEEKS ELECTRONICALLY SIGNED BY QIAN BATES MD, MD ON 11/25/2019 AT 10:00 AM EDT DISCLAIMER : THIS IS A VISIT SUMMARY EXTRACTED FROM THE [employer] CHART. IT IS NOT A COPY OF THE [employer] PROGRESS NOTE. GUILHERME
== END ==
LOC: M PAIN 09:15
PROVIDERS: ATTEND Anesthesiology
DX: M79.18 Myalgia, other site (principal); Z88.1 Allergy status to other antibiotic agents; Z88.5 Allergy status to narcotic agent; E66.01 Morbid (severe) obesity due to excess calories; Z68.41 Body mass index [BMI] 40.0-44.9, adult; Z79.899 Other long term (current) drug therapy
CPT/HCPCS: 20552; J3301

== ENCOUNTER → 2019-12-02 | Outpatient (CLI) | payer OTHER ==
[~2019-12-02] MED LIST changes: -BUPIVACAINE HCL 0.25% 30 ML VIAL As Ordered ONE; -TRIAMCINOLONE ACETONIDE SUSP 40 MG/ML VIAL (J3301) As Ordered ONE; -diazePAM 5 MG TAB As Ordered ONE; -oxyCODONE 5MG TAB As Ordered ONE
--- NOTE | 2019-12-03 03:30 | ECWPNPC ---
PATIENT NAME: DIVINA CAI : 1990 GENDER: FEMALE VISIT DATE: 12/02/2019 DISCHARGE DATE: 12/02/19 1141 VISIT LOCKED DATE TIME: PHYSICIAN: CHAVEZ OSEGUERA RESOURCE: CHAVEZ OSEGUERA REASON FOR APPOINTMENT 1. FOLLOW UP HISTORY OF PRESENT ILLNESS HISTORY OF PRESENT ILLNESS: PHONE CALL TO PATIENT WHO IS AGREEABLE TO DO PHONE VISIT TODAY. HAD TRIGGER POINT INJECTIONS, BILATERAL THORACIC REGION ON 11/12/2019. REPORTING 1 WEEK OF IMPROVEMENT, THEN PAIN GRADUALLY RETURNED TO BASELINE. RATING PAIN VAS 7/10. CONTINUES TAKING TOPAMAX 25 MG TWICE A DAY AND IS REPORTING LESS FREQUENT MIGRAINE HEADACHE. SHE IS VERY HAPPY ABOUT THIS. FINISHED PHYSICAL THERAPY A FEW WEEKS AGO. REPORTING NO LONG-TERM IMPROVEMENT IN HER PAIN POST PT. PAIN THE PATIENT DESCRIBES THE PAIN... FALL RISK SCREENING: SCREENING :NO FALLS REPORTED IN THE LAST YEAR CURRENT MEDICATIONS TAKING AMITRIPTYLINE HCL 25 MG TABLET 1 TABLET AT BEDTIME ORALLY BEFORE BEDTIME TAKING TOPAMAX 25 MG TABLET 1 TABLET ORALLY BID TAKING METFORMIN HCL 500 MG TABLET 1 TABLET WITH A MEAL ORALLY BID ONCE WEEKLY NOT-TAKING TAMIFLU 75 MG CAPSULE 1 CAPSULE ORALLY TWICE A DAY MEDICATION LIST REVIEWED AND RECONCILED WITH THE PATIENT PAST MEDICAL HISTORY PCOS CHRONIC PAIN ALLERGIES HYDROCODONE-ACETAMINOPHEN: INCREASED HR, SWEATS - ALLERGY CEPHALEXIN: INCREASED HR, SWEATS, VOMITING - ALLERGY SURGICAL HISTORY CYST REMOVED OFF LEFT WRIST 04/2018 GALLBLADDER GALLBLADDER REMOVED 08/2013 GANGLION CYST LEFT FAMILY HISTORY FATHER: ALIVE MOTHER: ALIVE 56 YRS SIBLINGS: ALIVE SON(S): ALIVE DAUGHTER(S): ALIVE 1 BROTHER(S) - HEALTHY. 1 SON(S) , 1 DAUGHTER(S) - HEALTHY. SOCIAL HISTORY GENERAL: TOBACCO USE ARE YOU A:NONSMOKER ARE YOU A:NONSMOKER HIV / HEP-C SCREENING HIV TEST OFFERED TO PATIENT:YES DATE OFFERED:10/04/2019 TEST ACCEPTED:NO HEP-C TEST OFFERED TO PATIENT:NO REASON:PATIENT DECLINED BROCHURE PROVIDED TO PATIENTNO OTHERS AT HOME: SPOUSE, CHILDREN. HOUSING: OWNS HOME. EDUCATION LEVEL OF EDUCATION:FINISHED HIGH SCHOOL DIET: REGULAR. LANGUAGE LANGUAGES SPOKEN:CROATIAN DOMESTIC VIOLENCE DO YOU FEEL SAFE IN YOUR ENVIRONMENT?YES NEW PATIENT PAIN DIARY TODAY'S VISITNOTES 12/02/2019 PATIENT DESCRIBES PAIN :ACHING, HAVE IT ALL THE TIME, STABBING FROM 0-10, WHAT LEVEL IS YOUR PAIN TODAY?7 RECREATIONAL DRUG USE DRUG USE?YES HOW OFTEN AND HOW MUCH? MARIJUANA - WHEN SHE IS VISITING MASS. EXERCISE: DAILY. 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?NO PAIN CLINIC PFS, CLERGY, PUBLIC HEALTH REFERRALS WAS THE PROVIDER NOTIFIED OF ANY PERTINENT INFO?YES HAS THE PATIENT BEEN EDUCATED REGARDING HIS/HER PLAN OF CARE?YES PATIENT EDUCATED REGARDING TPI PROCEDURE, ACKNOWLEDGED UNDERSTANDING HAS THE PATIENT BEEN EDUCATED REGARDING PAIN, THE RISK FOR PAIN, THE IMPORTANCE OF EFFECTIVE PAIN MANAGEMENT, AND THE PAIN ASSESSMENT PROCESS?YES LATEX QUESTIONNAIRE LATEX ALLERGY : HAVE YOU EVER DEVELOPED ANY TYPE OF REACTION AFTER HANDLING LATEX PRODUCTS SUCH RUBBER GLOVES, CONDOMS, DIAPHRAGMS, BALLOONS, SOCKS, OR UNDERWEAR?NO LATEX ALLERGY : HAVE YOU EVER DEVELOPED ANY TYPE OF REACTION DURING OR AFTER DENTAL APPOINTMENT, VAGINAL/RECTAL EXAMINATION, SURGICAL PROCEDURE, OR ANY OTHER EXPOSURE?NO LATEX RISK : HAVE YOU EVER HAD ANY DIFFICULTY BREATHING OR HIVES AFTER EATING OR HANDLING ANY FRUITS, OR VEGETABLES; SUCH KIWI, BANANAS, STONE FRUITS, OR CHESTNUTSNO LATEX RISK : DO YOU HAVE A PREVIOUS PERSONAL HISTORY OF MORE THAN NINE SURGERIES, SPINA BIFIDA, OR REPEATED CATHERIZATIONS? NO LATEX RISK : ARE YOU FREQUENTLY EXPOSED TO LATEX PRODUCTS IN YOUR OCCUPATION?NO DATE ASKED : 11/12/2019 CAFFEINE CAFFEINE USE?YES SODA AND TEA DAILY CAFFEINE USE?YES HOW OFTEN AND HOW MUCH? SODA, TEA ADVANCE DIRECTIVE ADVANCE DIRECTIVE DISCUSSED WITH PATIENT:YES PT STATES THAT SHE DOES NOT HAVE HCP, PT DECLINES ASSISTANCE OR INFORMATION AT THIS TIME HOLINESS [id number] NONE MARITAL STATUS: . ALCOHOL SCREENING DID YOU HAVE A DRINK CONTAINING ALCOHOL IN THE PAST YEAR?YES DID YOU HAVE A DRINK CONTAINING ALCOHOL IN THE PAST YEAR?YES HOW OFTEN DID YOU HAVE SIX OR MORE DRINKS ON ONE OCCASION IN THE PAST YEAR?NEVER (0 POINTS) HOW MANY DRINKS DID YOU HAVE ON A TYPICAL DAY WHEN YOU WERE DRINKING IN THE PAST YEAR?1 OR 2 (0 POINTS) HOW MANY DRINKS DID YOU HAVE ON A TYPICAL DAY WHEN YOU WERE DRINKING IN THE PAST YEAR?1 OR 2 (0 POINTS) HOW OFTEN DID YOU HAVE A DRINK CONTAINING ALCOHOL IN THE PAST YEAR?MONTHLY OR LESS (1 POINT) HOW OFTEN DID YOU HAVE A DRINK CONTAINING ALCOHOL IN THE PAST YEAR?MONTHLY OR LESS (1 POINT) POINTS1 POINTS1 INTERPRETATIONNEGATIVE INTERPRETATIONNEGATIVE 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 SEXUAL HX HAD SEX IN THE LAST 12 MONTHS (VAGINAL, ORAL, OR ANAL)?YES WITHMEN ONLY USE PROTECTION?YES HOW OFTEN?SOME OF THE TIME HAVE YOU EVER HAD AN STD?NO HOSPITALIZATION/MAJOR DIAGNOSTIC PROCEDURE ABOVE REVIEW OF SYSTEMS REVIEWED BY: PROVIDER: CHAVEZ PEREZ . CONSTITUTIONAL: ANY CHANGE IN YOUR MEDICAL CONDITION? NO . CHILLS NO . FEVER NO . INFECTION: DO YOU HAVE NEW INFECTIONS? NO . DO YOU HAVE HISTORY OF MRSA? NO . MUSCULOSKELETAL: ANY NEW PATTERNS OF PAIN OR NUMBNESS? NO . GASTROENTEROLOGY: ANY NEW CHANGE IN BOWEL CONTROL? NO . GENITOURINARY: ANY NEW CHANGE IN BLADDER CONTROL? NO . IS THERE A CHANCE YOU COULD BE ? NO . HEMATOLOGY/LYMPH: DO YOU TAKE ANY BLOOD THINNERS? (FOR EXAMPLE- COUMADIN, PLAVIX, AGGRENOX, PLATEL, PRADAXA, OR XARELTO) NO . WHEN WAS YOUR LAST DOSE? DATE: TIME: . NEUROLOGY: HAVE YOU FALLEN IN THE PAST 12 MONTHS? NO . ANY NEW EXTREMITY NUMBNESS OR WEAKNESS? NO . CARDIOLOGY: DO YOU HAVE A PACEMAKER OR DEFIBRILLATOR? NO . RESPIRATORY: HAVE YOU BEEN SICK IN THE PAST WEEK? NO . FEVER NO . FLU LIKE SYMPTOMS? NO . COUGH NO . INTEGUMENTARY: DO YOU HAVE ANY RASHES OR OPEN SORES? NO . ALLERGIC/IMMUNO: ARE YOU ALLERGIC TO IV DYE? NO . ANY NEW ALLERGIES? NO . PSYCHIATRIC: DO YOU HAVE THOUGHTS OF HURTING YOURSELF OR SOMEONE ELSE? NO . ARE YOU ABUSED, NEGLECTED, OR IN AN UNSAFE ENVIRONMENT? NO . ENDOCRINOLOGY: ARE YOU DIABETIC? NO . OTHER: DO YOU NEED ANY PRESCRIPTIONS? NO . IF YES, PLEASE LIST: ____ . ANY NEW PROBLEMS WITH YOUR MEDICATIONS? NO . WHEN DID YOU LAST EAT? ____ . WHEN DID YOU LAST DRINK? ____ . WHAT DID YOU LAST DRINK? ____ . NAME OF PERSON DRIVING YOU HOME? ____ . DO YOU HAVE ANY OTHER QUESTIONS OR CONCERNS NO . ASSESSMENTS MYALGIA, OTHER SITE - M79.18 (PRIMARY) TREATMENT MYALGIA, OTHER SITE NOTES: REVIEWED MRI AND DISCUSSED TREATMENT OPTIONS. WE WILL BRING HER INTO CLINIC IN 4-6 WEEKS TO PHYSICALLY EXAMINE AND DISCUSS FURTHER TREATMENT PLAN. TOTAL TIME DURING THIS TELEPHONE VISIT WAS APPROXIMATELY 11 MINUTES. DISPOSITION & COMMUNICATION FOLLOW UP 4-6WKS PRE PROCEDURE (REASON: BACK PAIN) ELECTRONICALLY SIGNED BY ANA LEIGH ON 12/02/2019 AT 11:56 AM EDT DISCLAIMER : THIS IS A VISIT SUMMARY EXTRACTED FROM THE [employer] CHART. IT IS NOT A COPY OF THE [employer] PROGRESS NOTE. GUILHERME
== END ==
LOC: M PAIN 09:30
PROVIDERS: ATTEND Nurse Practitioner Family
DX: M79.18 Myalgia, other site (principal); Z88.1 Allergy status to other antibiotic agents; Z88.5 Allergy status to narcotic agent; Z79.899 Other long term (current) drug therapy

== ENCOUNTER → 2020-01-17 | Outpatient (CLI) | payer OTHER ==
[~2020-01-17] MED LIST changes: +METF-839 PO
== END ==
LOC: M LABSMTC 12:13
PROVIDERS: ATTEND Anesthesiology
DX: Z01.818 Encounter for other preprocedural examination (principal); Z11.59 Encounter for screening for other viral diseases
CPT/HCPCS: C9803; U0003

== ENCOUNTER → 2020-02-01 | Outpatient (CLI) | payer OTHER | LOC: M LABSMTC 09:35 | PROVIDERS: ATTEND Anesthesiology | DX: Z01.818 Encounter for other preprocedural examination (principal); Z11.59 Encounter for screening for other viral diseases | CPT/HCPCS: C9803; U0003 ==

== ENCOUNTER 2020-02-04 06:43 | Day surgery (SDC) | payer OTHER ==
[~2020-02-04] VITALS: Ht 147.3 cm; Wt 64.8 kg
[2020-02-04] MEDS ORDERED: NS 1,000 ML IV ONE (07:00)
[2020-02-04] MEDS ORDERED: LIDOCAINE 2% 100MG/5ML SDV (FOR ANES.) As Ordered ONE (07:01)
[2020-02-04] MEDS ORDERED: propofoL 500 MG/50 ML VIAL As Ordered ONE (07:01)
[2020-02-04] MEDS ORDERED: fentaNYL 100 MCG/2 ML INJECTION (J3010) As Ordered ONE (07:01)
--- NOTE | 2020-02-04 08:18 | ROOR ---
Patient Name: Priti Foss Procedure Date: 02/04/2020 7:36 AM Date of : 1990 Age: 29 Room: [facility] Gender: Female Note Status: Finalized Procedure: Upper GI endoscopy Indications: Epigastric abdominal pain, Nausea with vomiting Providers: Jerad Perez MD Referring MD: Gabbie CHAMBERS Requesting Provider: Medicines: Monitored Anesthesia Care Complications: No immediate complications. Procedure: Pre-Anesthesia Assessment: - Prior to the procedure, a History and Physical was performed, and patient medications and allergies were reviewed. The patient is competent. The risks and benefits of the procedure and the sedation options and risks were discussed with the patient. All questions were answered and informed consent was obtained. Patient identification and proposed procedure were verified by the physician, the nurse and the anesthesiologist in the procedure room. Mental Status Examination: alert and oriented. Airway Examination: normal oropharyngeal airway and neck mobility. Respiratory Examination: clear to auscultation. CV Examination: normal. Prophylactic Antibiotics: The patient does not require prophylactic antibiotics. Prior Anticoagulants: The patient has taken no previous anticoagulant or antiplatelet agents. ASA Grade Assessment: II - A patient with mild systemic disease. After reviewing the risks and benefits, the patient was deemed in satisfactory condition to undergo the procedure. The anesthesia plan was to use monitored anesthesia care (MAC). Immediately prior to administration of medications, the patient was re-assessed for adequacy to receive sedatives. The heart rate, respiratory rate, oxygen saturations, blood pressure, adequacy of pulmonary ventilation, and response to care were monitored throughout the procedure. The physical status of the patient was re-assessed after the procedure. The Endoscope was introduced through the mouth, and advanced to the second part of duodenum. The upper GI endoscopy was accomplished without difficulty. The patient tolerated the procedure well. Findings: The Z-line was regular and was found 36 cm from the incisors. The examined esophagus was normal. Scattered moderate inflammation characterized by erythema, friability and granularity was found in the gastric body and in the gastric antrum. Biopsies were taken with a cold forceps for Helicobacter pylori testing. Verification of patient identification for the specimen was done by the physician and nurse using the patient's name, date and medical record number. Estimated blood loss was minimal. The duodenal bulb, second portion of the duodenum and major papilla were normal. Biopsies for histology were taken with a cold forceps for evaluation of celiac disease. Impression: - Z-line regular, 36 cm from the incisors. - Normal esophagus. - Gastritis. Biopsied. - Normal duodenal bulb, second portion of the duodenum and major papilla. Biopsied. Recommendation: - Patient has a contact number available for emergencies. The signs and symptoms of potential delayed complications were discussed with the patient. Return to normal activities tomorrow. Written discharge instructions were provided to the patient. - High fiber diet. - Continue present medications. - Await pathology results. - Telephone GI clinic for pathology results in 2 weeks. - Return to primary care physician. Jerad Perez MD Jerad Perez MD 02/04/2020 8:18:04 AM Electronically signed by Jerad Perez MD Number of Addenda: 0 Note Initiated On: 02/04/2020 7:36 AM Estimated Blood Loss: Estimated blood loss was minimal.
--- NOTE | 2020-02-04 08:20 | ROOR ---
Patient Name: Priti Foss Procedure Date: 02/04/2020 7:38 AM Date of : 1990 Age: 29 Room: [facility] Gender: Female Note Status: Finalized Procedure: Colonoscopy Indications: Chronic diarrhea, Change in bowel habits Providers: Jerad Perez MD Referring MD: Gabbie CHAMBERS Requesting Provider: Medicines: Monitored Anesthesia Care Complications: No immediate complications. Procedure: Pre-Anesthesia Assessment: - Prior to the procedure, a History and Physical was performed, and patient medications and allergies were reviewed. The patient is competent. The risks and benefits of the procedure and the sedation options and risks were discussed with the patient. All questions were answered and informed consent was obtained. Patient identification and proposed procedure were verified by the physician, the nurse and the anesthesiologist in the procedure room. Mental Status Examination: alert and oriented. Respiratory Examination: clear to auscultation. CV Examination: normal. Prophylactic Antibiotics: The patient does not require prophylactic antibiotics. Prior Anticoagulants: The patient has taken no previous anticoagulant or antiplatelet agents. ASA Grade Assessment: II - A patient with mild systemic disease. After reviewing the risks and benefits, the patient was deemed in satisfactory condition to undergo the procedure. The anesthesia plan was to use monitored anesthesia care (MAC). Immediately prior to administration of medications, the patient was re-assessed for adequacy to receive sedatives. The heart rate, respiratory rate, oxygen saturations, blood pressure, adequacy of pulmonary ventilation, and response to care were monitored throughout the procedure. The physical status of the patient was re-assessed after the procedure. The Colonoscope was introduced through the anus and advanced to the terminal ileum, with identification of the appendiceal orifice and IC valve. The colonoscopy was performed without difficulty. The patient tolerated the procedure well. The quality of the bowel preparation was good. The terminal ileum, ileocecal valve, appendiceal orifice, and rectum were photographed. Scope insertion time was 3 minutes. Scope withdrawal time was 8 minutes. The total duration of the procedure was 11 minutes. Findings: The perianal and digital rectal examinations were normal. The terminal ileum appeared normal. Normal mucosa was found in the entire colon. Biopsies for histology were taken with a cold forceps from the right colon, left colon and rectosigmoid colon for evaluation of microscopic colitis. Verification of patient identification for the specimen was done by the physician and nurse using the patient's name, date and medical record number. Estimated blood loss was minimal. Non-bleeding external and internal hemorrhoids were found during retroflexion. The hemorrhoids were small. Impression: - The examined portion of the ileum was normal. - Normal mucosa in the entire examined colon. Biopsied. - Non-bleeding external and internal hemorrhoids. Recommendation: - Patient has a contact number available for emergencies. The signs and symptoms of potential delayed complications were discussed with the patient. Return to normal activities tomorrow. Written discharge instructions were provided to the patient. - High fiber diet. - Continue present medications. - Await pathology results. - Repeat colonoscopy at age 50 for screening purposes. - Telephone GI clinic for pathology results in 2 weeks. - Return to primary care physician. Jerad Perez MD Jerad Perez MD 02/04/2020 8:20:23 AM Electronically signed by Jerad Perez MD Number of Addenda: 0 Note Initiated On: 02/04/2020 7:38 AM Estimated Blood Loss: Estimated blood loss was minimal.
[2020-02-04 08:30] VITALS: BP 135/68
== END 2020-02-04 08:49 | disposition home or self-care (01) ==
LOC: M OPP 06:43
PROVIDERS: ATTEND Internal Medicine Gastroenterology
DX: K64.8 Other hemorrhoids (principal); K52.9 Noninfective gastroenteritis and colitis, unspecified; K29.70 Gastritis, unspecified, without bleeding; R10.13 Epigastric pain; R11.2 Nausea with vomiting, unspecified; Z88.5 Allergy status to narcotic agent; Z88.8 Allergy status to other drugs, medicaments and biological substances
CPT/HCPCS: 43239; 45380; 88305; 88342; J3010

== ENCOUNTER → 2020-05-11 | Outpatient (CLI) | payer OTHER ==
[2020-05-11 12:42] LABS: FREE T4 0.94 NG/DL (0.76-1.46); THYROID STIMULATING HORMONE 8.63 uIU/ML (0.358-3.740)
== END ==
LOC: M PLALAB 08:45
PROVIDERS: ATTEND Nurse Practitioner Family
DX: E06.3 Autoimmune thyroiditis (principal)

== ENCOUNTER → 2020-05-13 | Outpatient (CLI) | payer OTHER | LOC: M LABSMTC 10:57 | PROVIDERS: ATTEND Anesthesiology | DX: Z01.818 Encounter for other preprocedural examination (principal); Z11.59 Encounter for screening for other viral diseases; Z20.828 Contact with and (suspected) exposure to other viral communicable diseases | CPT/HCPCS: C9803; U0003 ==

== ENCOUNTER 2020-05-18 08:21 | Day surgery (SDC) | payer OTHER ==
[~2020-05-18] VITALS: Ht 147.3 cm; Wt 63.0 kg
[~2020-05-18 08:21] MED LIST changes: +BUPIVACAINE/EPIN 0.5% 30 ML VIAL As Ordered ONE; +LIDOCAINE W/EPINEPHRINE 1% 20ML VIAL As Ordered ONE; +LR 1,000 ML IV ONE
[2020-05-18] MEDS ORDERED: ONDANSETRON 4MG/2ML VIAL As Ordered ONE (09:57)
[2020-05-18] MEDS ORDERED: propofoL 200 MG/20 ML VIAL As Ordered ONE (09:57)
[2020-05-18] MEDS ORDERED: LIDOCAINE 2% 100MG/5ML SDV (FOR ANES.) As Ordered ONE (09:57)
[2020-05-18] MEDS ORDERED: fentaNYL 100 MCG/2 ML INJECTION (J3010) As Ordered ONE ×3 (09:57→11:56)
[2020-05-18] MEDS ORDERED: MIDAZOLAM INJ 2MG/2ML VIAL (J2250 PER 1MG) As Ordered ONE (09:57)
[2020-05-18] MEDS ORDERED: ROCURONIUM BROMIDE 50 MG/5 ML VIAL As Ordered ONE (09:57)
[2020-05-18] MEDS ORDERED: SUGAMMADEX SODIUM 500 MG/5 ML VIAL (BRIDION) As Ordered ONE (10:58)
[2020-05-18] MEDS ORDERED: PERCOCET 5MG/325MG TAB PO PRN (12:00)
[2020-05-18] MEDS ORDERED: traMADol 50 MG TAB PO PRN (12:00)
[2020-05-18] MEDS ORDERED: fentaNYL 100 MCG/2 ML INJECTION (J3010) IV PRN (12:00)
[2020-05-18] MEDS ORDERED: ONDANSETRON 4MG/2ML VIAL IV PRN (12:00)
[2020-05-18] MEDS ORDERED: METOCLOPRAMIDE INJ 10MG/2ML VIAL (J2765 PER 1) IV PRN (12:00)
[2020-05-18] MEDS ORDERED: LR 1,000 ML IV SCH ×2 (12:00)
[2020-05-18 14:05] VITALS: BP 111/81
--- NOTE | 2020-06-02 13:28 | RO ---
DATE OF OPERATION: 05/18/2020 PREOPERATIVE DIAGNOSIS: Chronic tonsillitis. POSTOPERATIVE DIAGNOSIS: Chronic tonsillitis. OPERATIVE PROCEDURES: Tonsillectomy. PROCEDURE IN DETAIL: Under general anesthesia, with the patient intubated, Alvarez-Pino mouth gag was inserted. The tonsil area was infiltrated with lidocaine and epinephrine. Using the cautery, I dissected the tonsil free from its bed on both sides. Any vessels seen were cauterized. The patient tolerated the procedure well. There was no blood loss. The patient was extubated and transferred to the recovery room in excellent condition. GUILHERME
== END 2020-05-18 14:10 | disposition home or self-care (01) ==
LOC: M SDC 08:21
PROVIDERS: ATTEND Otolaryngology
DX: J35.01 Chronic tonsillitis (principal); E03.9 Hypothyroidism, unspecified; E28.2 Polycystic ovarian syndrome; Z79.899 Other long term (current) drug therapy; F41.9 Anxiety disorder, unspecified; F32.9 Major depressive disorder, single episode, unspecified; Z88.5 Allergy status to narcotic agent; Z88.1 Allergy status to other antibiotic agents
CPT/HCPCS: 42826; 81025; 88302; J2250; J2405; J2765; J3010

== ENCOUNTER → 2020-07-10 | Outpatient (CLI) | payer OTHER ==
[~2020-07-10] MED LIST changes: -BUPIVACAINE/EPIN 0.5% 30 ML VIAL As Ordered ONE; -LIDOCAINE W/EPINEPHRINE 1% 20ML VIAL As Ordered ONE; -LR 1,000 ML IV ONE
[2020-07-10 14:55] LABS: FREE T4 0.87 NG/DL (0.76-1.46); THYROID STIMULATING HORMONE 4.53 uIU/ML (0.358-3.740)
== END ==
LOC: M PLALAB 09:48
PROVIDERS: ATTEND Nurse Practitioner Family
DX: E06.3 Autoimmune thyroiditis (principal)

== ENCOUNTER → 2020-09-11 | Outpatient (CLI) | payer OTHER ==
[~2020-09-11] MED LIST changes: -AMIT25TA PO; +AMIT25TA17 PO
[2020-09-11 13:01] LABS: FREE T4 1.06 NG/DL (0.76-1.46); THYROID STIMULATING HORMONE 2.73 uIU/ML (0.358-3.740)
== END ==
LOC: M PLALAB 09:24
PROVIDERS: ATTEND Nurse Practitioner Family
DX: E06.3 Autoimmune thyroiditis (principal)

== ENCOUNTER → 2020-09-20 | Outpatient (REF) | payer OTHER | LOC: M PLALAB 14:46 | PROVIDERS: ATTEND Nurse Practitioner Family | DX: N92.6 Irregular menstruation, unspecified (principal) | CPT/HCPCS: 36415; 81025; 84702; G0463 ==

== ENCOUNTER → 2020-09-22 | Outpatient (REF) | payer OTHER | LOC: M PLALAB 13:19 | PROVIDERS: ATTEND Nurse Practitioner Family | DX: N92.6 Irregular menstruation, unspecified (principal) ==

== ENCOUNTER → 2020-10-04 | Outpatient (REF) | payer OTHER ==
[2020-10-04 13:56] LABS: HEMATOCRIT 39.2 % (36.0-47.0); HEMOGLOBIN 12.9 g/dl (12.0-15.5); MEAN CORPUSCULAR HEMOGLOBIN 30.1 pg (27.0-33.0); MEAN CORPUSCULAR HGB CONC 32.9 g/dl (32.0-36.5); MEAN CORPUSCULAR VOLUME 91.4 fl (80.0-96.0); PLATELET COUNT, AUTOMATED 225 10^3/uL (150-450); RED BLOOD COUNT 4.29 10^6/uL (4.00-5.40); WHITE BLOOD COUNT 9.2 10^3/uL (4.0-10.0)
[2020-10-04 14:25] LABS: CREATININE,RANDOM URINE 47.8 MG/DL; TOTAL PROTEIN,RANDOM URINE < 5.0 MG/DL (0.0-12.0)
[2020-10-04 14:29] LABS: ALT/SGPT 35 U/L (12-78); BILIRUBIN,TOTAL 0.7 MG/DL (0.2-1.0); GLOMERULAR FILTRATION RATE > 60.0 (>60); LDH LACTATE DEHYDROGENASE 152 U/L (84-246); URIC ACID 4.4 MG/DL (2.6-6.0)
[2020-10-04 15:17] LABS: HEPATITIS C VIRUS ABY INDEX < 0.0 INDEX (<0.8)
[2020-10-04 15:18] LABS: HIV 1&2 SCREEN CENTAUR NEGATIVE (NEGATIVE)
[2020-10-04 15:53] LABS: CHLAMYDIA DNA AMPLIFICATION NEGATIVE (NEGATIVE); GC DNA AMPLIFICATION NEGATIVE (NEGATIVE)
== END ==
LOC: M PLALAB 10:24
PROVIDERS: ATTEND Advanced Practice Midwife
DX: Z34.91 Encounter for supervision of normal pregnancy, unspecified, first trimester (principal); Z3A.08 8 weeks gestation of pregnancy

== ENCOUNTER → 2020-10-20 | Outpatient (CLI) | payer OTHER ==
[2020-10-20 14:42] LABS: FREE T4 1.05 NG/DL (0.76-1.46); THYROID STIMULATING HORMONE 0.316 uIU/ML (0.358-3.740)
== END ==
LOC: M PLALAB 11:57
PROVIDERS: ATTEND Nurse Practitioner Family
DX: E06.3 Autoimmune thyroiditis (principal)

== ENCOUNTER → 2020-11-03 | Outpatient (REF) | payer OTHER | LOC: M PLALAB 16:40 | PROVIDERS: ATTEND Obstetrics & Gynecology | DX: Z12.4 Encounter for screening for malignant neoplasm of cervix (principal) | CPT/HCPCS: G0123; G0463 ==

== ENCOUNTER → 2020-11-17 | Outpatient (REF) | payer OTHER ==
[2020-11-17 16:09] LABS: FREE T4 0.94 NG/DL (0.76-1.46); THYROID STIMULATING HORMONE 0.274 uIU/ML (0.358-3.740)
== END ==
LOC: M PLALAB 15:00
PROVIDERS: ATTEND Nurse Practitioner Family
DX: E06.3 Autoimmune thyroiditis (principal)

== ENCOUNTER → 2020-12-22 | Outpatient (CLI) | payer OTHER ==
[2020-12-22 14:20] LABS: FREE T4 0.86 NG/DL (0.76-1.46); THYROID STIMULATING HORMONE 0.899 uIU/ML (0.358-3.740)
== END ==
LOC: M PLALAB 12:07
PROVIDERS: ATTEND Nurse Practitioner Family
DX: E06.3 Autoimmune thyroiditis (principal)

== ENCOUNTER → 2020-12-26 | Outpatient (CLI) | payer OTHER ==
--- NOTE | 2020-12-26 12:04 | REP ---
INDICATION: ANATOMY. TECHNIQUE: Transabdominal FINDINGS: Multiple ultrasonographic images of the gravid uterus shows a single living intrauterine gestation in the transverse head maternal left position. The placenta is posterior and not low-lying. The cervix measures 4.5 cm in length and is closed. Doppler interrogation of the heart is a heart rate of 153 beats per minute. The subjective amniotic fluid volume is within normal limits. anatomical structures seen is unremarkable are as follows: Thalami, cavum septum pellucidum, cerebellum, cisterna magna, cerebral ventricles, four-chamber heart, ventricular outflow tracts, stomach, and upper and lower extremities anatomical structures suboptimally visualized are as follows: upper lip, kidneys, urinary bladder, cord insertion, spine, and three-vessel umbilical cord BPD: 4.6 cm 20 weeks 0 days HC: 17.7 cm 20 weeks 1 day AC: 15.5 cm 20 weeks 4 days FL: 3.4 cm 20 weeks 5 days Estimated weight is 366 g which is at the 79th percentile for a 20 week 0 day gestational age IMPRESSION: Single living intrauterine gestation as described above with an estimated gestational age of 20 weeks 3 days via composite criteria and an estimated dated delivery of 05/12/2021 by today's exam. No anomalies were detected, however, I recommend a follow-up examination two-view those structures not well seen today as described above. <Electronically signed by Charlie Lamas > 12/26/20 1200
== END ==
LOC: M WHC 09:42
PROVIDERS: ATTEND Advanced Practice Midwife
DX: Z36.89 Encounter for other specified antenatal screening (principal); Z3A.20 20 weeks gestation of pregnancy

== ENCOUNTER → 2021-01-18 | Outpatient (CLI) | payer OTHER ==
--- NOTE | 2021-01-19 05:55 | REP ---
INDICATION: F/U ANATOMY COMPARISON: 12/26/2020 TECHNIQUE: Transabdominal obstetrical ultrasound with color Doppler evaluation. FINDINGS: Examination demonstrates a single live intrauterine in cephalic presentation. motion is identified by technologist. Placenta is noted posterior fundal and grade 1 without evidence for placenta previa or abruption. Amniotic fluid volume is normal. Cervix measures 5.8 cm in length and appears closed.. Gestational age by LMP 23 weeks 2 days with EDGAR 05/15/2021. Gestational age by current measurements 23 weeks 4 days with EDGAR 05/13/2021. FHR equals 146 beats per minute. Estimated weight 627 grams (66thpercentile). Anatomical assessment demonstrates normal structures including cranium, choroid plexus, cavum, cerebellum/posterior fossa, facial features, lungs, four-chamber left ventricular outflow tract, diaphragm, stomach, cord insertion/three-vessel cord, kidneys/bladder, spine, and extremities. IMPRESSION: Single live intrauterine in cephalic presentation demonstrating appropriate interval growth. In conjunction with prior examination anatomical assessment is complete and normal. <Electronically signed by Lionel Daniel > 01/19/21 0512
== END ==
LOC: M WHC 12:24
PROVIDERS: ATTEND Advanced Practice Midwife
DX: O99.212 Obesity complicating pregnancy, second trimester (principal); Z3A.23 23 weeks gestation of pregnancy

== ENCOUNTER → 2021-01-23 | Outpatient (REF) | payer OTHER ==
[2021-01-23 16:09] LABS: FREE T4 0.82 NG/DL (0.76-1.46); THYROID STIMULATING HORMONE 0.932 uIU/ML (0.358-3.740)
== END ==
LOC: M PLALAB 15:06
PROVIDERS: ATTEND Nurse Practitioner Family
DX: E06.3 Autoimmune thyroiditis (principal)

== ENCOUNTER → 2021-03-05 | Outpatient (CLI) | payer OTHER | LOC: M LAB 08:01 | PROVIDERS: ATTEND Advanced Practice Midwife | DX: Z36.89 Encounter for other specified antenatal screening (principal); Z3A.29 29 weeks gestation of pregnancy ==

== ENCOUNTER → 2021-03-07 | Outpatient (CLI) | payer OTHER ==
[2021-03-07 14:29] LABS: FREE T4 0.94 NG/DL (0.76-1.46); THYROID STIMULATING HORMONE 0.384 uIU/ML (0.358-3.740)
== END ==
LOC: M PLALAB 10:52
PROVIDERS: ATTEND Nurse Practitioner Family
DX: E06.3 Autoimmune thyroiditis (principal)

== ENCOUNTER → 2021-03-21 | Outpatient (CLI) | payer OTHER ==
--- NOTE | 2021-03-21 17:09 | REP ---
INDICATION: NONREASSURING NFT. COMPARISON: Comparison study January 18, 2021.. TECHNIQUE: Transabdominal obstetric sonography, limited study. FINDINGS: Scanning through the gravid uterus demonstrates a viable single intrauterine gestation in a variable lie. heart rate is recorded at 141 beats per minute. A post row fundal placenta is seen without evidence of previa. Amniotic fluid is subjectively normal. BAILEY is normal at 17.4 cm. Biophysical profile score is 8 out of a possible 8. SD ratio in the umbilical cord artery by Doppler is normal at 2.69. Closed cervical length is measured transabdominally at 3.5 cm. IMPRESSION: Limited obstetric sonography as above. <Electronically signed by Royce Ramirez > 03/21/21 [id number]
== END ==
LOC: M RAD 16:13
PROVIDERS: ATTEND Advanced Practice Midwife
DX: O24.419 Gestational diabetes mellitus in pregnancy, unspecified control (principal)
CPT/HCPCS: 76815; 76819; 76820; G0463

== ENCOUNTER → 2021-03-29 | Outpatient (CLI) | payer OTHER ==
--- NOTE | 2021-03-29 10:53 | REP ---
INDICATION: GROWTH/EDGAR 05/15/21. COMPARISON: Comparison study is from March 21, 2021.. TECHNIQUE: Transabdominal obstetric sonography. FINDINGS: Scanning through the gravid uterus demonstrates a viable single intrauterine gestation in cephalic lie. motion is observed and heart rate is recorded at 144 beats per minute. A posterior placenta is seen, grade there 1, without evidence of placenta previa. Closed cervical length is measured at 3.1 cm transabdominally. No extrauterine abnormality is observed. Amniotic fluid is subjectively normal. BAILEY is normal at 15.7 cm. . Biometry chart: BPD 8.4 cm, 33 weeks 6 days Head circumference 30.1 cm, 33 weeks 2 days Abdominal circumference 30.3 cm, 34 weeks 2 days Distal femur length 6.5 cm, 33 weeks 3 days Humeral length 5.7 cm, 33 weeks 1 day HC AC ratio normal 0.99 Cephalic index normal 0.79 Estimated weight 2294 g, 5 lb 0 oz, 60th percentile for 33 weeks 2 days IMPRESSION: Viable single intrauterine gestation at 33 weeks 4 days by today's composite sonographic criteria. EDGAR by today's sonography May 13, 2021. No complication identified. Expected gestational age estimate from known EDGAR of 15 May 2021 is 33 weeks 2 days appropriate growth. <Electronically signed by Royce Ramirez > 03/29/21 [id number]
== END ==
LOC: M WHC 09:39
PROVIDERS: ATTEND Advanced Practice Midwife
DX: O24.419 Gestational diabetes mellitus in pregnancy, unspecified control (principal); Z3A.33 33 weeks gestation of pregnancy

== ENCOUNTER → 2021-04-16 | Outpatient (CLI) | payer OTHER | LOC: M WHC 16:02 | PROVIDERS: ATTEND Obstetrics & Gynecology | DX: Z36.89 Encounter for other specified antenatal screening (principal); Z3A.35 35 weeks gestation of pregnancy; Z53.8 Procedure and treatment not carried out for other reasons ==

== ENCOUNTER → 2021-04-17 | Outpatient (REF) | payer OTHER | LOC: M SFHCWAGY 12:32 | PROVIDERS: ATTEND Obstetrics & Gynecology | DX: Z36.89 Encounter for other specified antenatal screening (principal); Z3A.35 35 weeks gestation of pregnancy ==

== ENCOUNTER → 2021-04-24 | Outpatient (CLI) | payer OTHER ==
[~2021-04-24] MED LIST changes: +INSUN SC; +INSUR SC; +IRON325T9 PO; +LEVO75TA4 PO; +PRENTAB9 PO
--- NOTE | 2021-04-24 15:40 | REP ---
INDICATION: GROWTH. COMPARISON: 03/29/2021 TECHNIQUE: Transabdominal scanning FINDINGS: Multiple ultrasonographic images of the gravid uterus shows a single living intrauterine gestation in the cephalic presentation. Doppler interrogation of the heart shows a heart rate of 142 beats per minute. The placenta is posterior and not low-lying. The cervix measures 3.3 cm in length and is closed. The subjective amniotic fluid volume is within normal limits. The calculated amniotic fluid index is 18.2 with an expected range of 7.5-24.4. BPD: 9 cm 36 weeks 3 days HC: 32.5 cm 36 weeks 5 days AC: 31.8 cm 35 weeks 5 days FL: 6.7 cm 34 weeks 3 days The estimated weight is 2707 g which is at the 21st percentile for a 37 week 0 day gestational age. IMPRESSION: Single living intrauterine gestation as described above with an estimated gestational age of 36 weeks 0 days via composite criteria and an estimated date of delivery of 05/22/2021 by today's exam. <Electronically signed by Charlie Lamas > 04/24/21 [id number]
== END ==
LOC: M WHC 14:53
PROVIDERS: ATTEND Obstetrics & Gynecology
DX: Z36.9 Encounter for antenatal screening, unspecified (principal); Z3A.36 36 weeks gestation of pregnancy

== ENCOUNTER 2021-04-27 11:53 | Inpatient (IN) | payer OTHER ==
[~2021-04-27] VITALS: Ht 147.3 cm; Wt 74.8 kg
[~2021-04-27 11:53] MED LIST changes: -INSUN SC; -INSUR SC; -IRON325T9 PO; -LEVO75TA4 PO; -PRENTAB9 PO
[2021-04-27] MEDS ORDERED: LACTATED RINGER'S 1000 ML IV STA (11:57)
[2021-04-27] MEDS ORDERED: OXYTOCIN DRIP 30 UNITS in IV 1 EA IV PRN (12:00)
[2021-04-27] MEDS ORDERED: LIDOCAINE 1% MDV 20ML VIAL INFIL PRN (12:00)
[2021-04-27] MEDS ORDERED: NS 1,000 ML IV SCH (12:00)
[2021-04-27] MEDS ORDERED: METHYLERGONOVINE MALEATE 0.2 MG/ML VIAL (J2210) IM PRN (12:00)
[2021-04-27] MEDS ORDERED: INSULIN IV RATE CHANGE DOCUMENTATION ML/HR XX SCH (12:00)
[2021-04-27] MEDS ORDERED: INSULIN REGULAR IN 0.9 % NACL 100 UNIT in IV 1 EA IV SCH ×4 (12:00→18:00)
[2021-04-27 12:22] VITALS: BP 122/72
[2021-04-27] MEDS ORDERED: IRON325T9 PO (12:30)
[2021-04-27] MEDS ORDERED: LEVO75TA4 PO (12:30)
[2021-04-27] MEDS ORDERED: PRENTAB9 PO (12:30)
[2021-04-27] MEDS ORDERED: INSUN SC (12:30)
[2021-04-27] MEDS ORDERED: INSUR SC (12:30)
[2021-04-27] MEDS ORDERED: HOME MED LIST COMPLETE! XX SCH (12:35)
[2021-04-27 13:27] VITALS: BP 109/60
[2021-04-27] MEDS: miSOPROStol 50MCG 1/2 TABLET PO SCH ×2 (13:58→17:00)
--- NOTE | 2021-04-27 14:02 | HPEPDOC ---
Obstetrical History & Physical General Date of Admission Apr 27, 2021 at 11:53 History of Present Illness Chief Complaint: Induction of labor (pregestational diabetes, currently insulin dependent) Information Provided By: Patient : 3 Term: 2 Pre-term: 0 Abortions: 0 Livin Care Care: Good Care Dating Final EDC: May 15, 2021 Final EDC by: 1st trimester (US) EGA at Admission: 37 (+3) Antepartum Course Pre- weight (lbs.): 152 Admission Weight (lbs.): 168 Past Medical History Past Obstetrical History #1: Past Obstetrical History: Primgravida (2009) Type of Delivery: Spontaneous Vaginal Del. Sex of Infant: Female (6#13) Complications: No Past Obstetrical History #2: Past Obstetrical History: Multigravida (2010) Type of Delivery: Spontaneous Vaginal Del. Sex of : Male (7#5) Complications: Yes (right labial laceration poorly healed, continued pain) SPLUNK ARCHITECT History: No pertinent history Past Medical History Medical History hypothyroid Surgical History: Gallbladder, Tonsilectomy, Other (ganglion cyst) Family History Significant Family History: No pertinent family hx Social History Marital Status: Family situation: Spouse/partner home Psychosocial History: Anxiety * Smoker: non-smoker Abuse Violence Screening Have you been hit/kicked/slapp: No Have you been sexually assault: No Imunizations Tdap status: current Allergies Coded Allergies: cephalexin (Verified Adverse Reaction, Unknown, VOMITING, SWEATING,RAPID HEART RATE, 11/12/19) hydrocodone (Verified Adverse Reaction, Unknown, VOMITING, SWEATING, RAPID HEART RATE, 11/12/19) Medications Scheduled Ferrous Sulfate (Iron) 325 Mg Tablet, 1 TAB PO DAILY Levothyroxine Sodium (Levothyroxine Sodium) 75 Mcg Tablet, 75 MCG PO DAILY No.137/Iron/Folic Acd ( Vitamin Tablet) 1 Each Tablet, 1 TAB PO DAILY Miscellaneous Medications Insulin Human NPH (Novolin N) 100 Unit/1 Ml Vial, 26 UNITS SC Insulin Human NPH (Novolin N) 100 Unit/1 Ml Vial, 10 UNITS SC Insulin Human Regular (Novolin R) 100 Unit/1 Ml Vial, 14 UNITS SC Insulin Human Regular (Novolin R) 100 Unit/1 Ml Vial, 12 UNITS SC Physical Examination Physical Examination GENERAL: Alert and oriented times three. BREAST: . ABDOMEN: Gravid and non-tender to touch. FETUS: Is vertex (VTX) by sterile vaginal examination (SVE), fetus is vertex (VTX) by Jaylen. EFW 7.5-8# HEART RATE: Regular rate and rhythm. LUNGS: Clear to auscultation (CTA). EXTREMITIES: No edema. No clonus. Deep tendon reflexes (DTRs) + 2. Laboratory Data 24H LABS Laboratory Tests 2 04/27/21 12:05: Serology Scanned Report Hepatitis B Testing Pertinent Laboratoy Data Blood Type: AB+ RBC Antibody Screen: Negative HIV: Negative Hepatitis B: Negative Rapid Plasma Reagin: Nonreactive Rubella: Immune Chlamydia/Gonorrhea: Negative Group B Streptococcus: Negative Glucose Tolerance Test: 170 (87/196/163/133) Anatomy Ultrasound Ultrasound Date: Dec 26, 2020 Placenta Location: Posterior Normal Anatomy: Yes (partially complete) Placenta Previa: No Estimated Weight (grams): 366 (79%) Other Ultrasounds 10/04/2020 dating 8w1d 01/18/2021 F/u anatomy, 627gm, 66%, normal f/u anatomy 03/21/2021 BPP 8/8, BAILEY 17.4 03/29/2021 Cephalic, BAILEY 15.7, 2294gm 60%, 33w2d 04/24/2021 Cephalic, BAILEY 18.2, 2707gm, 21%, 36w 0d Steroid Therapy Steroid Therapy: No Vaginal Examination Dilation: 1cm (-2) Effacement: 50% Station: -1 Cervical Consistency: Medium Cervical Position: Posterior Presentation: Cephalic presentation Assessment Heart Rate (FHR): 145 Variability: Moderate Accelerations: Positive Decelerations: None Tocometer Contractions: Yes Frequency: irregular Strength: palpated as mild Assessment/Plan Assessment Priti is a 30-year-old (G)3 para (P)2-0-0-2 at 37+3 weeks by 8-week u ltrasound. Presents to Labor and Delivery (L&D) for induction of labor due to insulin dependent diabetes. Denies LOF, bleeding or regular UC. Reports good movement. Plan Admit and orient per consult Dr Sheets Drier Unloader and consent. Diet: regular. Group B Streptococcus (GBS) negative. Labs and intravenous (IV) per unit protocol. Counseled on misoprostol, cook's catheter, Pitocin and induction of labor (IOL). Lactated Ringers (LR): Bolus 500 mL, then saline lock. Insulin drip as needed. Plans epidural Anticipate normal spontaneous delivery () C-S as appropriate. Ananya Givens CNM Apr 27, 2021 14:02
[2021-04-27 14:04] LABS: HEMATOCRIT 32.5 % (36.0-47.0); HEMOGLOBIN 10.5 g/dl (12.0-15.5); MEAN CORPUSCULAR HEMOGLOBIN 28.1 pg (27.0-33.0); MEAN CORPUSCULAR HGB CONC 32.3 g/dl (32.0-36.5); MEAN CORPUSCULAR VOLUME 86.9 fl (80.0-96.0); PLATELET COUNT, AUTOMATED 218 10^3/uL (150-450); RED BLOOD COUNT 3.74 10^6/uL (4.00-5.40)
[2021-04-27 14:45] LABS: ALBUMIN 2.5 GM/DL (3.2-5.2); ALT/SGPT 16 U/L (12-78); BILIRUBIN,TOTAL 0.3 MG/DL (0.2-1.0); BLOOD UREA NITROGEN 8 MG/DL (7-18); CALCIUM LEVEL 8.4 MG/DL (8.5-10.1); CARBON DIOXIDE LEVEL 21 MEQ/L (21-32); CHLORIDE LEVEL 111 MEQ/L (98-107); CREATININE FOR GFR 0.56 MG/DL (0.55-1.30); GLOMERULAR FILTRATION RATE > 60.0 (>60); GLUCOSE, FASTING 94 MG/DL (70-100); POTASSIUM SERUM 3.9 MEQ/L (3.5-5.1); SODIUM LEVEL 141 MEQ/L (136-145); TOTAL PROTEIN 6.1 GM/DL (6.4-8.2)
[2021-04-27 16:00] VITALS: BP 122/65
[2021-04-27 17:19] VITALS: BP 126/72
[2021-04-27 18:58] VITALS: BP 126/84
--- NOTE | 2021-04-27 19:16 | IPNPDOC ---
Text Note Date of Service The patient was seen on 04/27/21. NOTE Progress Pt is requesting discharge until Friday. Doesn't want born tomorrow if possible. Cat I tracing, Irregular mild UC SVE unchanged, no bloody show. Risks/benefits of continued induction vs discharge for Friday reviewed. Pt is aware she may progress into her own labor prior to Friday. Discharged home. After hours access, GALILEO, daily FKC, warnings reviwed. Continue home medication regimen. Induction protocol reviewed. VS,Fishbone, I+O VS, Fishbone, I+O Laboratory Tests 04/27/21 13:45 Vital Signs Date Time Temp Pulse Resp B/P (MAP) Pulse Ox O2 Delivery O2 Flow Rate FiO2 04/27/21 18:58 98.7 100 18 126/84 (98) Ananya Givens CNM Apr 27, 2021 19:16
[2021-04-28] MEDS ORDERED: LEVOTHYROXINE 75MCG TABLET (0.075MG) PO SCH (06:00)
== END 2021-04-27 19:42 | disposition home or self-care (01) | DRG 833 ==
LOC: M LDI 11:53
PROVIDERS: ADMIT Advanced Practice Midwife; ATTEND Advanced Practice Midwife
PROC: 3E0P7GC Introduction of Other Therapeutic Substance into Female Reproductive, Via Natural or Artificial Opening (ICD-10-PCS; principal; 2021-04-27)
DX: O24.113 Pre-existing type 2 diabetes mellitus, in pregnancy, third trimester (principal); Z3A.37 37 weeks gestation of pregnancy; Z79.4 Long term (current) use of insulin; Z53.29 Procedure and treatment not carried out because of patient's decision for other reasons; Z88.8 Allergy status to other drugs, medicaments and biological substances

== ENCOUNTER 2021-04-29 18:13 | Inpatient (IN) | payer OTHER ==
[~2021-04-29] VITALS: Ht 147.3 cm; Wt 75.1 kg
[~2021-04-29 18:13] MED LIST changes: +INSUN SC; +INSUR SC; +IRON325T9 PO; +LEVO75TA4 PO; +PRENTAB9 PO
[2021-04-29 18:40] VITALS: BP 155/76
[2021-04-29 19:48] LABS: HEMATOCRIT 33.8 % (36.0-47.0); HEMOGLOBIN 10.8 g/dl (12.0-15.5); MEAN CORPUSCULAR HEMOGLOBIN 27.6 pg (27.0-33.0); MEAN CORPUSCULAR VOLUME 86.4 fl (80.0-96.0); PLATELET COUNT, AUTOMATED 210 10^3/uL (150-450); RED BLOOD COUNT 3.91 10^6/uL (4.00-5.40); WHITE BLOOD COUNT 9.9 10^3/uL (4.0-10.0)
[2021-04-29 19:54] VITALS: BP 123/67
[2021-04-29 20:09] LABS: BLOOD UREA NITROGEN 9 MG/DL (7-18); CALCIUM LEVEL 8.2 MG/DL (8.5-10.1); CARBON DIOXIDE LEVEL 19 MEQ/L (21-32); CHLORIDE LEVEL 112 MEQ/L (98-107); GLOMERULAR FILTRATION RATE > 60.0 (>60); GLUCOSE, FASTING 80 MG/DL (70-100); POTASSIUM SERUM 4.4 MEQ/L (3.5-5.1); SODIUM LEVEL 140 MEQ/L (136-145)
[2021-04-29] MEDS ORDERED: NS 1,000 ML IV SCH (20:25)
[2021-04-29] MEDS ORDERED: INSULIN REGULAR IN 0.9 % NACL 100 UNIT in IV 1 EA IV SCH ×2 (20:25)
[2021-04-29] MEDS ORDERED: INSULIN IV RATE CHANGE DOCUMENTATION ML/HR XX SCH (20:25)
[2021-04-29 20:37] VITALS: BP 112/63
[2021-04-29] MEDS ORDERED: miSOPROStol 50MCG 1/2 TABLET PO SCH (21:00)
[2021-04-30] VITALS (16 sets, daily range): BP systolic 102–140; BP diastolic 56–80
[2021-04-30] MEDS ORDERED: FENTANYL 2MCG/ML ROPIVACAINE 0.2% IN 0.9% NACL 100ML IVBAG As Ordered ONE (01:57)
[2021-04-30] MEDS ORDERED: EPIDURAL COMMENT XX SCH (02:35)
[2021-04-30] MEDS ORDERED: ePHEDrine SULFATE 25 MG/5 ML(5MG/ML) SYRINGE IV PRN (02:35)
[2021-04-30] MEDS ORDERED: NALOXONE INJ 0.4MG/1ML VIAL (J2310 PER 1MG) IV PRN (02:35)
[2021-04-30] MEDS ORDERED: ONDANSETRON 4MG/2ML VIAL IV PRN (02:35)
[2021-04-30] MEDS ORDERED: FENTANYL/ROPIVACAINE/NACL BAG 100 ML EPIDURAL SCH (02:35)
[2021-04-30] MEDS ORDERED: LACTATED RINGER'S 1000 ML IV PRN (02:35)
[2021-04-30] MEDS ORDERED: REFRIGERATOR IV KEYS XX PRN (02:35)
[2021-04-30] MEDS ORDERED: diphenhydrAMINE 50MG/ML VIAL (J1200) IV PRN (02:35)
[2021-04-30] MEDS ORDERED: EPIDURAL/PCA KEYS XX PRN (02:35)
[2021-04-30] MEDS ORDERED: OXYTOCIN 30 UNITS IN 0.9% NaCl 500ML IV BAG (J2590) As Ordered ONE (03:30)
[2021-04-30] MEDS ORDERED: ANUSOL HC CREAM 30GM TOP PRN (03:55)
[2021-04-30] MEDS ORDERED: DOCUSATE SODIUM 100MG CAPSULE PO PRN (03:55)
[2021-04-30] MEDS ORDERED: MEASLES,MUMPS,RUBELLA VACCINE INJ (MMR-II) (90707) SC SCH (03:55)
[2021-04-30] MEDS ORDERED: MOM 30ML SUSPENSION UDC PO PRN (03:55)
[2021-04-30] MEDS ORDERED: METHYLERGONOVINE MALEATE 0.2 MG TAB PO PRN (03:55)
[2021-04-30] MEDS ORDERED: IBUPROFEN 600MG TAB PO PRN (03:55)
[2021-04-30] MEDS ORDERED: RHOGAM 300 MCG (1500 IU) INJ (J2790) IM SCH (03:55)
[2021-04-30] MEDS ORDERED: OXYTOCIN DRIP 30 UNITS in IV 1 EA IV SCH ×2 (03:55→04:55)
[2021-04-30] MEDS ORDERED: DIBUCAINE 1% OINTMENT 30GM TOP PRN (03:55)
[2021-04-30] MEDS ORDERED: IBUPROFEN 800 MG TAB PO PRN (03:55)
[2021-04-30] MEDS ORDERED: ACETAMINOPHEN TAB 650MG DOSE (2X325MG) PO PRN (03:55)
[2021-04-30] MEDS ORDERED: OXYTOCIN INJ 10 UNITS/ML VIAL (J2590) IV STA (04:49)
[2021-04-30] MEDS: PRENATAL VITAMINS CHEWABLE TABLET PO SCH (07:59)
[2021-04-30] MEDS: ACETAMINOPHEN 500 MG TAB PO PRN ×2 (08:00→14:35)
[2021-05-01 06:00] VITALS: BP 114/71
[2021-05-01] MEDS: LEVOTHYROXINE 75MCG TABLET (0.075MG) PO SCH (06:42)
[2021-05-01] MEDS: PRENATAL VITAMINS CHEWABLE TABLET PO SCH (08:33)
[2021-05-01 17:44] VITALS: BP 120/64
[2021-05-02] MEDS: ACETAMINOPHEN 500 MG TAB PO PRN (02:26)
[2021-05-02 05:57] VITALS: BP 111/69
[2021-05-02] MEDS: LEVOTHYROXINE 75MCG TABLET (0.075MG) PO SCH (06:13)
[2021-05-02] MEDS ORDERED: COLA100C5 PO (09:04)
[2021-05-02] MEDS ORDERED: IBUP80TA PO (09:04)
[2021-05-02] MEDS ORDERED: INSUN SC ×2 (09:07)
[2021-05-02] MEDS ORDERED: INSUR SC ×2 (09:07)
[2021-05-02] MEDS: PRENATAL VITAMINS CHEWABLE TABLET PO SCH (10:15)
[2021-05-02] MEDS ORDERED: INFLUENZA QUADRIVALENT PF VACCINE 0.5ML SYRINGE IM ONE (14:00)
[2021-07-17] MEDS ORDERED: EUTH50TA (09:01)
== END 2021-05-02 16:55 | disposition home or self-care (01) | DRG 807 ==
LOC: M LDI 18:13 → M OBS 04-30 15:07
PROVIDERS: ADMIT Obstetrics & Gynecology; ATTEND Obstetrics & Gynecology
PROC: 3E0P7GC Introduction of Other Therapeutic Substance into Female Reproductive, Via Natural or Artificial Opening (ICD-10-PCS; 2021-04-29)
PROC: 10E0XZZ Delivery of Products of Conception, External Approach (ICD-10-PCS; principal; 2021-04-30)
DX: O24.12 Pre-existing type 2 diabetes mellitus, in childbirth (principal); Z37.0 Single live birth; E11.65 Type 2 diabetes mellitus with hyperglycemia; Z79.4 Long term (current) use of insulin; Z3A.37 37 weeks gestation of pregnancy; O99.284 Endocrine, nutritional and metabolic diseases complicating childbirth; E03.9 Hypothyroidism, unspecified

== ENCOUNTER → 2021-07-28 | Outpatient (CLI) | payer OTHER ==
[~2021-07-28] MED LIST changes: +COLA100C5 PO; +EUTH50TA; +IBUP80TA PO
== END ==
LOC: M LABSMTC 11:47
PROVIDERS: ATTEND Anesthesiology
DX: Z01.818 Encounter for other preprocedural examination (principal); Z11.52 Encounter for screening for COVID-19

== ENCOUNTER 2021-08-01 10:51 | Day surgery (SDC) | payer OTHER ==
[~2021-08-01] VITALS: Ht 147.3 cm; Wt 65.2 kg
--- OUTSIDE RECORDS SUMMARY | 2021-08-01 10:56 | CCD ---
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 92269101 Problem Low back pain M54.5 Active confirmed 529780 009 Problem Other chronic pain G89.29 Active confirmed 8 2839261 Problem Gastroesophageal reflux disease, esophagitis pre sence not specified K21.9 Active confirmed 976664291 Problem Myalgia, other site M79.18 Active confirmed 66539371 Problem Generalized anxiety disorder F41.1 Active confirme d 00515110 Problem Depression with anxiety F41.8 Active confirmed 389224249 Problem Insomnia, unspecified type G47.00 Active confirmed 972502265 Problem Obesity complicating in first trimester O99.211 Active confirmed Problem Supervision of other normal Z34.80 Ac tive confirm 901347474 Problem Missed menses N92.6 Active confirmed 480621 00 Problem Anemia affecting O99.019 Active confirmed 40030310 Problem Migraine-cluster headache syndrome G44.009 Activ e confirmed 874385129 Problem Lumbago with sciatica, left side M54.42 Active confirmed 422373953 Problem Obesity complicating , third trimester O9 9.213 Active confirmed 830391763900 Problem Anticipatory anxiety F41.1 Active confirmed 57802711 Problem Other chronic pain G89.29 Active confirmed 8 8458028 Problem Lumbago with sciatica, right side M54.41 Active confirmed 474756802520437 Problem Obesity E66.9 Active confirmed 368042400 Problem Obesity complicating in second trimester O99.212 Active confirmed 737941425640 Problem Other obesity due to excess calories E66.09 Act kendal confirmed 456299205 Problem Endocrine, nutritional and m etabolic diseases complicating , second trimester O99.282 Active confirmed 961155106 ALLERGIES Allergen (clinical drug ingredient) Drug/Non Drug Allergy do cumented on EMR Reaction Allergy Type Onset Date Status acetaminophen / hydrocodone Hydrocodone-Acetaminophen([facility] Co de:[address]-59) increased hr, sweats Drug Allergy Active cephalexin Cephalexin([facility] Code:[address]-11) increased hr, sweats, vomiting Drug Allergy Active ENCOUNTERS from 1990 to 2021-05-03 Encounter Location Date Provider Diagnosis [address] [phone] [place] [address] Apr, Elizabeth Intorcia Gestational diabetes mellitu s O24.419 IMMUNIZATIONS Vaccine Route Administration Date Status TDAP 0.5mL Boostrix IM Intramuscular March 14, 2021 Administere d SOCIAL HISTORY Tobacco Use: Social History Observation Description Date Details (start date - stop date) Never Smoker Sex Assigned At : Social History Observation Description Sex Assigned At Unknown Education: Question Answer Notes Level of Education: Finished High School Audit Question Answer Notes Total Score: 1 Interpretation: Alcohol Education Language: Question Answer Notes Languages spoken: Japanese Taoism: Question Answer Notes Taoism 33 None Drug and Alcohol Question Answer Notes Total Score: 1 Interpretation: Low level Alcohol Screening: Question Answer Notes Did you have a drink containing alcohol in the past year? No Did you have a drink containing alcohol in the past year? No Points 0 Points 0 Interpretation Negative Interpretation Negative Tobacco Use: Question Answer Notes Are you a: never smoker Are you a: never smoker REASON FOR REFERRAL No Information VITAL SIGNS Weight 166.2 lbs Apr, Weight-kg 75.39 kg Apr, Height 58 in Apr, BMI 34.73 kg/m2 Apr, MEDICATIONS Medication SIG (Take, Route, Frequency, Duration) Notes Start Da te End Date Status NovoLIN R 100 UNIT/ML as directed Injection BID 14 units in AM, 10 units in PM Mar, Active metFORMIN HCl 500 MG 1 tablet with a meal Orally Daily Not-Taking Lancets - as directed O24.419 four times daily for 30 Days Mar, Active Tamiflu 75 MG 1 capsule Orally Twice a day for 5 day(s) Oct, Not-Taking Alcohol Wipes 70 % as directed O24.419 topically four times aislinn y for 30 Days Mar, Active Ferrous Sulfate 325 (65 Fe) MG 1 tablet Orally Once a day for 30 day(s) Jan, Active Topamax 25 MG 1 tablet Orally bid for 30 day(s) Aug, Not-Taking 27-1 MG 1 tablet Orally Once a day Active Test Strips - as directed O24.419 four times daily for 30 Days Mar, Active Amitriptyline HCl 25 MG 1 tablet at bedtime Orally before bedtime for 30 Not-Taking Levothyroxine Sodium 75 MCG 1 tablet in the morning on an empty stomach Orally Once a day 75mcg qd Active busPIRone HCl 5 MG 1 tablet Orally Twice a day Jan, Active Glucose Monitor - as directed O24.419 four times daily for 30 Da ys Mar, Active Insulin Syringe/Needle 28G X 1/2" 0.5 ML as directed SC BID Mar, Active NovoLIN N 100 UNIT/ML as directed Subcutaneous 26 units in AM. 10 units in PM Mar, Active PROCEDURES No Information RESULTS No Results REASON FOR VISIT [facility] Nutrition Therapy r/t O24.419 Gestational Diabetes MEDICAL (GENERAL) HISTORY Type Description Date Medical History PCOS Medical History Chronic Pain Surgical History cyst removed off left wrist 04/2018 Surgical History Gallbladder Surgical History gallbladder removed 08/2013 Surgical History ganglion cyst left Surgical History tonsils removed 05/2020 Hospitalization History above Hospitalization History childbirth Goals Section No Information Health Concerns No Information MEDICAL EQUIPMENT No Information MENTAL STATUS No Information FUNCTIONAL STATUS No Information ASSESSMENTS Encounter Date Diagnosis Assessment Notes Treatment Notes Treatm ent Clinical Notes Apr, Gestational diabetes mellitus (ICD-10 - O24.419) Apr, Other Food Allergies: NKFA Food Dislikes: eggs, cottage cheese, beef Caloric Needs: 25-30 kcal/kg prepregnancy weight(149=68kg)=5362-5642 caories/day 24 hour food recall: Goal is 30 gm carb breakfast; 45 gm lunch and dinner, snack 30 gm Breakfast: 2 toast(30 g carb) w/ peanut butter=34 gm carb total Lunch: Healthy Choice Power Bowl-(10 gm carb), added pasta(34 gm carb)=44 gm carb Dinner: Chicken, 1 c. mashed potatoes(30 gm carb), green beans=30 gm carb Snacks: cheese stick, pecans (6 gm carb) PREVIOUS LABS: 02/15/21-1 HOUR GTT-170^ 03/05/21- FS GLUC-87, 1 HOUR-196^ (BELOW 180) 2 HOUR-163^(BELOW 155), 3 HOUR- 133(BELOW 140) Blood Glucose: I AM SUPPOSED TO CHECK FASTING WITH TARGET UNDER 90 I AM SUPPOSED TO CHECK 2 HOURS AFTER I EAT A MEAL TARGET UNDER 120 04/10/21-04/17/21: FASTIN, 81, 82, 85, 78, 83, 98 2 HOURS AFTER BREAKFAST: 90, 79, 86, 93, 136, 108, 99 2 HOURS AFTER LUNCH: x, 89, 116, 73,x,x,x, 2 HOURS AFTER DINNER: 148, 94, 126, X, 127, X,X Pertinent Medications: per patient 03/30/21- 26 units Novolin N and 14 u Novolin R before breakfast;10 u Novolin N and and 14 u Novolin R Activity: less activity- I have been napping and I never nap Nutrition Diagnosis: History of excessive carbohydrate intake r/t nutrition knowledge deficit regarding appropriate amount of carbohydrate to consume with recent diagnosis of Gestational Diabetes . Nutrition Prescription: 1) Diet Education: 30 GM CARB BREAKFAST AND SNACKS, 45 GM CARB LUNCH AND DINNER 2) Goal Setting-Patient will meet target blood sugar levels per provider 90% of the time. 3) Evidence of Learning: Verbalizes Understanding 4) Expected Adherence: Good 5) Barriers to Adherence: None noted COMMENTS: Patient returned for follow up MNT r/t recently diagnosed Gestational DM. Currently prescribed Novolin R- 14 units before breakfast and 12 units before dinner and Novolin N 26 units before breakfast and 10 units before evening meal. Checking fingersticks. Target bood sugar fasting, was below 90 mg/dl per MD. Results were all within target except one which was elevated at 98 mg/dl. 2 hours after breakfast patient was below 120 mg/dl target all checks except one which was 138 mg/dl. Patient tested less often after lunch but met target below 120 per above-tested 3/7 days. 2 hours after dinner met target below 120 mg/dl only once with 4 /7 checks completed. Reminded patient to increase blood sugar checks after lunch and dinner to 100% and restart food records to monitor carb intake more closely. Patient noted provider had increased evening Novolin R from 10 to 12 units. Weight up 1 pound since last visit and may be due to less activity. No episodes of hypoglycemia. Last visit reviewed the rule of 15 to appropriately treat hypoglycemia and patient has copy. Reviewed portion plate method/carb countng. Explained Non carb foods including: non-starchy vegetables, lean meat, and healthy fats in small amounts, helped to keep her full and avoid symptoms of low blood sugar. Next educated which food groups contained carbohydrate and the importance of increased fiber in the diet. Used food models to display appropriate portion sizes on an 8 inch plate to make a meal. Next discussed activity- goals of 30 minutes 5 days a week. Patient seemed to understand and has RDs contact information. GOALS: Meet BS targets per provider 90% of the time. 1) Eat 3 meals/snack carb counting -keep food record 2) Check BS every am with goal under 90 or 2 hours after a meal with goal under 120 mg/dl. 3) Walk to meet exercise goals. 4) If I feel funny I will check my blood sugar level. I will need to bring my monitor with me when I . I will follow directions to get my blood sugar back within normal range. I will alert provider when I have a low blood sugar. Monitor: _x_ Diet _x _WT _x__ Meds _x_ BS log _x_ Food Log _x_Activity PLAN OF TREATMENT Next Appt Details Pt will call as needed Reason: Insurance Providers Payer Name Payer Address Payer Phone Insured Name Patient Relati onship to Insured Coverage Start Date Coverage End Date [address] [phone] DIVINA CAI self
--- OUTSIDE RECORDS SUMMARY | 2021-08-01 10:56 | CCD ---
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 68639027 Problem Low back pain M54.5 Active confirmed 551398 009 Problem Other chronic pain G89.29 Active confirmed 8 8950859 Problem Gastroesophageal reflux disease, esophagitis pre sence not specified K21.9 Active confirmed 865431412 Problem Myalgia, other site M79.18 Active confirmed 59400559 Problem Generalized anxiety disorder F41.1 Active confirme d 08135963 Problem Depression with anxiety F41.8 Active confirmed 751043595 Problem Insomnia, unspecified type G47.00 Active confirmed 597799607 Problem Obesity complicating in first trimester O99.211 Active confirmed Problem Supervision of other normal Z34.80 Ac tive confirm 011537946 Problem Missed menses N92.6 Active confirmed 866939 00 Problem Anemia affecting O99.019 Active confirmed 05129825 Problem Migraine-cluster headache syndrome G44.009 Activ e confirmed 989499454 Problem Lumbago with sciatica, left side M54.42 Active confirmed 609191986 Problem Obesity complicating , third trimester O9 9.213 Active confirmed 387353090693 Problem Anticipatory anxiety F41.1 Active confirmed 34226760 Problem Other chronic pain G89.29 Active confirmed 8 9957193 Problem Lumbago with sciatica, right side M54.41 Active confirmed 229466337597162 Problem Obesity E66.9 Active confirmed 456003759 Problem Obesity complicating in second trimester O99.212 Active confirmed 260217834197 Problem Other obesity due to excess calories E66.09 Act kendal confirmed 169332938 Problem Endocrine, nutritional and m etabolic diseases complicating , second trimester O99.282 Active confirmed 648958191 ALLERGIES Allergen (clinical drug ingredient) Drug/Non Drug Allergy do cumented on EMR Reaction Allergy Type Onset Date Status acetaminophen / hydrocodone Hydrocodone-Acetaminophen([facility] [place] Co de:[address]-79) increased hr, sweats Drug Allergy Active cephalexin Cephalexin([facility] [place] Code:[address]-53) increased hr, sweats, vomiting Drug Allergy Active ENCOUNTERS from 1990 to 2021-07-12 Encounter Location Date Provider Diagnosis [facility] [phone] [place] [address] Jul, [facility] Sheets IMMUNIZATIONS Vaccine Route Administration Date Status TDAP [...] Education Language: Question Answer Notes Languages spoken: Italian Gnosticism: Question Answer Notes Gnosticism 33 None Drug and Alcohol Question Answer [...] REASON FOR REFERRAL No Information VITAL SIGNS No information MEDICATIONS Medication SIG (Take, Route, Frequency, Duration) Notes Start Da te End Date Status Levothyroxine Sodium 50 MCG 1 tablet in the morning on an empty stomach Orally Once a day 75mcg qd Active Glucose Monitor - as directed O24.419 four times daily for 30 Da ys Mar, Not-Taking metFORMIN HCl 500 MG 1 tablet with a meal Orally Daily Not-Taking NovoLIN R 100 UNIT/ML as directed Injection BID 14 units in AM, 10 units in PM Mar, Not-Taking Insulin Syringe/Needle 28G X 1/2" 0.5 ML as directed SC BID Mar, Not-Taking Tamiflu 75 MG 1 capsule Orally Twice a day for 5 day(s) Oct, Not-Taking 27-1 MG 1 tablet Orally Once a day Active NovoLIN N 100 UNIT/ML as directed Subcutaneous 26 units in AM. 10 units in PM Mar, Not-Taking Topamax 25 MG 1 tablet Orally bid for 30 day(s) Aug, Not-Taking busPIRone HCl 5 MG 1 tablet Orally Twice a day Jan, Not-Taking Test Strips - as directed O24.419 four times daily for 30 Days Mar, Not-Taking Ferrous Sulfate 325 (65 Fe) MG 1 tablet Orally Once a day for 30 day(s) Jan, Active Amitriptyline HCl 25 MG 1 tablet at bedtime Orally before bedtime for 30 Not-Taking Lancets - as directed O24.419 four times daily for 30 Days Mar, Not-Taking Alcohol Wipes 70 % as directed O24.419 topically four times aislinn y for 30 Days Mar, Not-Taking PROCEDURES No Information RESULTS No Results REASON FOR VISIT 08/01/21 SURG AUTH MEDICAL (GENERAL) HISTORY Type Description Date Medical [...] No Information FUNCTIONAL STATUS No Information ASSESSMENTS No Information PLAN OF TREATMENT Next Appt Details Provider Name:Meri Sheets, 2021-08-01 1 1:45:00 AM, [address] [place] [address] , [place], [address], Provider Name:Meri Sheets, 2021-08-15 0 8:00:00 AM, [facility] [phone], [place], [address], Insurance Providers Payer Name Payer Address Payer Phone Insured Name Patient Relati onship to Insured Coverage Start Date Coverage End Date [place] [phone] DIVINA CAI self
--- OUTSIDE RECORDS SUMMARY | 2021-08-01 10:56 | CCD ---
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 confirmed 08352231 Problem Low back pain M54.5 Active confirmed 911058 009 Problem Other chronic pain G89.29 Active confirmed 8 2582600 Problem Gastroesophageal reflux disease, esophagitis pre sence not specified K21.9 Active confirmed 439517569 Problem Myalgia, other site M79.18 Active confirmed 70910718 Problem Generalized anxiety disorder F41.1 Active confirme d 44379923 Problem Depression with anxiety F41.8 Active confirmed 584168063 Problem Insomnia, unspecified type G47.00 Active confirmed 391852858 Problem Obesity complicating in first trimester O99.211 Active confirmed Problem Supervision of other normal Z34.80 Ac tive confirm 759182453 Problem Missed menses N92.6 Active confirmed 451191 00 Problem Anemia affecting O99.019 Active confirmed 26219656 Problem Migraine-cluster headache syndrome G44.009 Activ e confirmed 232357307 Problem Lumbago with sciatica, left side M54.42 Active confirmed 665859457 Problem Obesity complicating , third trimester O9 9.213 Active confirmed 598419698097 Problem Anticipatory anxiety F41.1 Active confirmed 31989848 Problem Other chronic pain G89.29 Active confirmed 8 7712451 Problem Lumbago with sciatica, right side M54.41 Active confirmed 823307021132337 Problem Obesity E66.9 Active confirmed 817983754 Problem Obesity complicating in second trimester O99.212 Active confirmed 079924417420 Problem Other obesity due to excess calories E66.09 Act kendal confirmed 692255569 Problem Endocrine, nutritional and m etabolic diseases complicating , second trimester O99.282 Active confirmed 893163795 ALLERGIES Allergen (clinical drug ingredient) Drug/Non Drug Allergy do cumented on EMR Reaction Allergy Type Onset Date Status acetaminophen / hydrocodone Hydrocodone-Acetaminophen([facility] Co de:[address]-86) increased hr, sweats Drug Allergy Active cephalexin Cephalexin([facility] Code:[address]-55) increased hr, sweats, vomiting Drug Allergy Active ENCOUNTERS from 1990 to 2021-06-30 Encounter Location Date Provider Diagnosis [facility] [phone] [place] [address] Jun, [facility] care and examination Z39.2 IMMUNIZATIONS Vaccine Route Administration Date Status TDAP [...] Education Language: Question Answer Notes Languages spoken: Sami Rastafari: Question Answer Notes Rastafari 33 None Drug and Alcohol Question Answer [...] FOR REFERRAL No Information VITAL SIGNS Weight 145.2 lbs Jun, Weight-kg 65.86 kg Jun, Height 58 in Jun, BMI 30.34 kg/m2 Jun, Blood pressure systolic 122 mm Hg Jun, Blood pressure diastolic 76 mm Hg Jun, MEDICATIONS Medication SIG (Take, Route, Frequency, Duration) Notes Start Da te End Date Status busPIRone HCl 5 MG 1 tablet Orally Twice a day Jan, Not-Taking NovoLIN R 100 UNIT/ML as directed Injection BID 14 units in AM, 10 units in PM Mar, Not-Taking Lancets - as directed O24.419 four times daily for 30 Days Mar, Not-Taking Tamiflu 75 MG 1 capsule Orally Twice a day for 5 day(s) Oct, Not-Taking Alcohol Wipes 70 % as directed O24.419 topically four times aislinn y for 30 Days Mar, Not-Taking Ferrous Sulfate 325 (65 Fe) MG 1 tablet Orally Once a day for 30 day(s) Jan, Active Levothyroxine Sodium 75 MCG 1 tablet in the morning on an empty stomach Orally Once a day 75mcg qd Active Insulin Syringe/Needle 28G X 1/2" 0.5 ML as directed SC BID Mar, Not-Taking Test Strips - as directed O24.419 four times daily for 30 Days Mar, Not-Taking 27-1 MG 1 tablet Orally Once a day Active NovoLIN N 100 UNIT/ML as directed Subcutaneous 26 units in AM. 10 units in PM Mar, Not-Taking metFORMIN HCl 500 MG 1 tablet with a meal Orally Daily Not-Taking Amitriptyline HCl 25 MG 1 tablet at bedtime Orally before bedtime for 30 Not-Taking Glucose Monitor - as directed O24.419 four times daily for 30 Da ys Mar, Not-Taking Topamax 25 MG 1 tablet Orally bid for 30 day(s) Aug, Not-Taking PROCEDURES No Information RESULTS No Results REASON FOR VISIT 8 wk pp MEDICAL (GENERAL) HISTORY Type Description Date Medical [...] Notes Treatment Notes Treatm ent Clinical Notes Jun, care and examination (ICD-10 - Z39.2) PLAN OF TREATMENT No Information Insurance Providers Payer Name Payer Address Payer Phone Insured Name Patient Relati onship to Insured Coverage Start Date Coverage End Date [address] [phone] DIVINA CAI self
--- OUTSIDE RECORDS SUMMARY | 2021-08-01 10:56 | CCD ---
Author Author [facility] Organization 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 73122326 Problem Low back pain M54.5 Active confirmed 442329 009 Problem Other chronic pain G89.29 Active confirmed 8 8402719 Problem Gastroesophageal reflux disease, esophagitis pre sence not specified K21.9 Active confirmed 267154766 Problem Myalgia, other site M79.18 Active confirmed 59373434 Problem Generalized anxiety disorder F41.1 Active confirme d 93875295 Problem Depression with anxiety F41.8 Active confirmed 188312862 Problem Insomnia, unspecified type G47.00 Active confirmed 361920529 Problem Obesity complicating in first trimester O99.211 Active confirmed Problem Supervision of other normal Z34.80 Ac tive confirm 650926049 Problem Missed menses N92.6 Active confirmed 934525 00 Problem Anemia affecting O99.019 Active confirmed 04567881 Problem Migraine-cluster headache syndrome G44.009 Activ e confirmed 775350310 Problem Lumbago with sciatica, left side M54.42 Active confirmed 499727002 Problem Obesity complicating , third trimester O9 9.213 Active confirmed 442620889809 Problem Anticipatory anxiety F41.1 Active confirmed 59747174 Problem Other chronic pain G89.29 Active confirmed 8 5190997 Problem Lumbago with sciatica, right side M54.41 Active confirmed 543979060742301 Problem Obesity E66.9 Active confirmed 145799649 Problem Obesity complicating in second trimester O99.212 Active confirmed 009230582477 Problem Other obesity due to excess calories E66.09 Act kendal confirmed 493510722 Problem Endocrine, nutritional and m etabolic diseases complicating , second trimester O99.282 Active confirmed 443445591 ALLERGIES Allergen (clinical drug ingredient) Drug/Non Drug Allergy do cumented on EMR Reaction Allergy Type Onset Date Status acetaminophen / hydrocodone Hydrocodone-Acetaminophen([facility] Co de:[address]-79) increased hr, sweats Drug Allergy Active cephalexin Cephalexin([facility] Code:[address]-00) increased hr, sweats, vomiting Drug Allergy Active ENCOUNTERS from 1990 to 2021-07-29 Encounter Location Date Provider Diagnosis [facility] [phone] [place] [address] Jul, [facility] Sheets Labial tear S31.41XA IMMUNIZATIONS Vaccine Route Administration Date Status TDAP [...] Education Language: Question Answer Notes Languages spoken: Maltese Taoism: Question Answer Notes Taoism 33 None [...] FOR REFERRAL No Information VITAL SIGNS Weight 143.4 lbs Jul, Weight-kg 65.05 kg Jul, Height 58 in Jul, BMI 29.97 kg/m2 Jul, Blood pressure systolic 112 mm Hg Jul, Blood pressure diastolic 74 mm Hg Jul, MEDICATIONS Medication SIG (Take, Route, Frequency, Duration) [...] Information RESULTS No Results REASON FOR VISIT PRE OP SURG 08/01/21 MEDICAL (GENERAL) HISTORY Type Description Date Medical [...] Notes Treatment Notes Treatm ent Clinical Notes Jul, Labial tear (ICD-10 - S31.41XA) Pre-Operative CounselingProcedure: LabioplastySurgeon: Meri Sheets MD Patient has been counseling regarding the risks of the procedure to include anesthesia risks to include , bleeding/need for blood transfusion, infection, damage to internal organs, scarring, cosmetic dissatisfaction postoperative pain and need for future surgery based on findings. She under stands these risks and wishes to proceed with the above procedures. PLAN OF TREATMENT Treatment Notes Assessment Notes Clinical Notes Labial tear Pre-Operative Counse lingProcedure: LabioplastySurgeon: MARIAA Bojorquezatient has been counseling regarding the risks of the procedure to include anesthesia risks to include , bleeding/need for blood transfusion, infection, damage to internal organs, scarring, cosmetic dissatisfaction postoperative pain and need for future surgery based on findings. She understands these risks and wishes to proceed with the above procedures. Next Appt Details Provider Name:Meri Sheets, 2021-08-01 1 2:45:00 AM, [address] [place] [address] , [place], [address], Provider Name:Meri Sheets, 2021-08-15 0 8:00:00 AM, [address] [facility] [phone], [place], [address], Insurance Providers Payer Name Payer Address Payer Phone Insured Name Patient Relati onship to Insured Coverage Start Date Coverage End Date [place] [phone] DIVINA CAI self
--- OUTSIDE RECORDS SUMMARY | 2021-08-01 10:57 | CCD ---
Author Author [facility] Organization [facility] Address Unknown Phone Unavailable Care Team Providers Care Chief Projectionist Name Role Phone SANDRO, B MEAGAN PULMONARY CARE NURSE Unavailable Unavailable SANDRO, B MEAGAN PULMONARY CARE NURSE Unavailable Unavailable SANDRO, B MEAGAN PULMONARY CARE NURSE Unavailable Unavailable SANDRO, B MEAGAN PULMONARY CARE NURSE Unavailable Unavailable SANDRO, B MEAGAN PULMONARY CARE NURSE Unavailable Unavailable SANDRO, B MEAGAN PULMONARY CARE NURSE Unavailable Unavailable SANDRO, B MEAGAN PULMONARY CARE NURSE Unavailable Unavailable SANDRO, B MEAGAN PULMONARY CARE NURSE Unavailable Unavailable SANDRO, B MEAGAN PULMONARY CARE NURSE Unavailable Unavailable SANDRO, B MEAGAN PULMONARY CARE NURSE Unavailable Unavailable SANDRO, B MEAGAN PULMONARY CARE NURSE Unavailable Unavailable SANDRO, B MEAGAN PULMONARY CARE NURSE Unavailable Unavailable SANDRO, B MEAGAN PULMONARY CARE NURSE Unavailable Unavailable SANDRO, B MEAGAN PULMONARY CARE NURSE Unavailable Unavailable SANDRO, B MEAGAN PULMONARY CARE NURSE Unavailable Unavailable SANDRO, B MEAGAN PULMONARY CARE NURSE Unavailable Unavailable SANDRO, B MEAGAN PULMONARY CARE NURSE Unavailable Unavailable SANDRO, B MEAGAN PULMONARY CARE NURSE Unavailable Unavailable SANDRO, B MEAGAN PULMONARY CARE NURSE Unavailable Unavailable SANDRO, B MEAGAN PULMONARY CARE NURSE Unavailable Unavailable SANDRO, B MEAGAN PULMONARY CARE NURSE Unavailable Unavailable SANDRO, B MEAGAN PULMONARY CARE NURSE Unavailable Unavailable SANDRO, B MEAGAN PULMONARY CARE NURSE Unavailable Unavailable SANDRO, B MEAGAN PULMONARY CARE NURSE Unavailable Unavailable SANDRO, B MEAGAN PULMONARY CARE NURSE Unavailable Unavailable SANDRO, B MEAGAN PULMONARY CARE NURSE Unavailable Unavailable SANDRO, B MEAGAN PULMONARY CARE NURSE Unavailable Unavailable SANDRO, B MEAGAN PULMONARY CARE NURSE Unavailable Unavailable SANDRO, B MEAGAN PULMONARY CARE NURSE Unavailable Unavailable SANDRO, B MEAGAN PULMONARY CARE NURSE Unavailable Unavailable SANDRO, B MEAGAN PULMONARY CARE NURSE Unavailable Unavailable SANDRO, B MEAGAN PULMONARY CARE NURSE Unavailable Unavailable SANDRO, B MEAGAN PULMONARY CARE NURSE Unavailable Unavailable SANDRO, B MEAGAN PULMONARY CARE NURSE Unavailable Unavailable SANDRO, B MEAGAN PULMONARY CARE NURSE Unavailable Unavailable SANDRO, B MEAGAN PULMONARY CARE NURSE Unavailable Unavailable SANDRO, B MEAGAN PULMONARY CARE NURSE Unavailable Unavailable SANDRO, B MEAGAN PULMONARY CARE NURSE Unavailable Unavailable SANDRO, B MEAGAN PULMONARY CARE NURSE Unavailable Unavailable SANDRO, B MEAGAN PULMONARY CARE NURSE Unavailable Unavailable SANDRO, B MEAGAN PULMONARY CARE NURSE Unavailable Unavailable SANDRO, B MEAGAN PULMONARY CARE NURSE Unavailable Unavailable SANDRO, B MEAGAN PULMONARY CARE NURSE Unavailable Unavailable SANDRO, B MEAGAN PULMONARY CARE NURSE Unavailable Unavailable SANDRO, B MEAGAN PULMONARY CARE NURSE Unavailable Unavailable SANDRO, B MEAGAN PULMONARY CARE NURSE Unavailable Unavailable SANDRO, B MEAGAN PULMONARY CARE NURSE Unavailable Unavailable SANDRO, B MEAGAN PULMONARY CARE NURSE Unavailable Unavailable SANDRO, B MEAGAN PULMONARY CARE NURSE Unavailable Unavailable SANDRO, B MEAGAN PULMONARY CARE NURSE Unavailable Unavailable SANDRO, B MEAGAN PULMONARY CARE NURSE Unavailable Unavailable SANDRO, B MEAGAN PULMONARY CARE NURSE Unavailable Unavailable SANDRO, B MEAGAN PULMONARY CARE NURSE Unavailable Unavailable SANDRO, B MEAGAN PULMONARY CARE NURSE Unavailable Unavailable SANDRO, B MEAGAN PULMONARY CARE NURSE Unavailable Unavailable SANDRO, B MEAGAN PULMONARY CARE NURSE Unavailable Unavailable SANDRO, B MEAGAN PULMONARY CARE NURSE Unavailable Unavailable SANRDO, B MEAGAN PULMONARY CARE NURSE Unavailable Unavailable SANDRO, B MEAGAN PULMONARY CARE NURSE Unavailable Unavailable SANDRO, B MEAGAN PULMONARY CARE NURSE Unavailable Unavailable SANDRO, B MEAGAN PULMONARY CARE NURSE Unavailable Unavailable SANDRO, B MEAGAN PULMONARY CARE NURSE Unavailable Unavailable Re-disclosure Warning The records that you are about to access may contain information from federally-assisted alcohol or drug abuse programs. If such information is present, then the following federally mandated warning applies: This information has been disclosed to you from records protected by federal confidentiality rules (42 CFR part 2). The federal rules prohibit you from making any further disclosure of this information unless further disclosure is expressly permitted by the written consent of the person to whom it pertains or as otherwise permitted by 42 CFR part 2. A general authorization for the release of medical or other information is NOT sufficient for this purpose. The Federal rules restrict any use of the information to criminally investigate or prosecute any alcohol or drug abuse patient.The records that you are about to access may contain highly sensitive health information, the redisclosure of which is protected by Article 27-F of the [facility] Public Health law. If you continue you may have access to information: Regarding HIV / AIDS; Provided by facilities licensed or operated by the [facility] Office of Mental Health; or Provided by the [facility] Office for People With Developmental Disabilities. If such information is present, then the following [facility] mandated warning applies: This information has been disclosed to you from confidential records which are protected by state law. State law prohibits you from making any further disclosure of this information without the specific written consent of the person to whom it pertains, or as otherwise permitted by law. Any unauthorized further disclosure in violation of state law may result in a fine or shelter sentence or both. A general authorization for the release of medical or other information is NOT sufficient authorization for further disc losure. Encounters Encounter Providers Location Date Indications Data Source(s ) Outpatient [address] [facility] [id number] 07/12/2021 12:00:00 AM EST eCW1 ([facility]) Unknown [address] [facility] [address] 07/11/2021 12:00:00 AM EST eCW1 ([facility]) ( PP) [facility] [address] [place] [address] 06/27/2021 12:00:00 AM EDT eCW1 ([facility]) ( ESTOB) [facility] Est OB [address] [place] [address] 04/25/2021 12:00:00 AM EDT eCW1 ([facility]) Outpatient [address] [facility] [address] 04/17/2021 12:00:00 AM EDT eCW1 ([facility]) ( ESTOB) [facility] Est OB [address] [place] [address] 04/16/2021 12:00:00 AM EDT eCW1 ([facility]) ( ESTOB) [facility] Est OB [address] [place] [address] 04/06/2021 12:00:00 AM EDT eCW1 ([facility]) Outpatient [address] [facility] [address] 04/04/2021 12:00:00 AM EDT eCW1 ([facility]) ( COBMD) [facility] Complicated OB for MD Only [address] [place] [address] 03/30/2021 12:00:00 AM EDT eCW1 ([facility]) Outpatient [address] [facility] [id number] 03/29/2021 12:00:00 AM EDT eCW1 ([facility]) Unknown [address] [facility] [place] [address] 03/21/2021 12:00:00 AM EDT eCW1 ([facility]) ( ESTOB) [facility] Est OB [address] [place] [address] 03/21/2021 12:00:00 AM EDT eCW1 ([facility]) ( ESTOB) [facility] Est OB [address] [place] [address] 03/14/2021 12:00:00 AM EDT eCW1 ([facility]) Outpatient Attender: MEAGAN JO PULMONARY CARE NURSE Physical Therapy 10:30:00 AM EDT MEDENT ([facility]) Unknown [address] [facility] [place] [address] 03/09/2021 12:00:00 AM EDT eCW1 ([facility]) Unknown [address] [facility] [place] [address] 03/08/2021 12:00:00 AM EDT eCW1 ([facility]) ( ESTOB) enter Est OB [address] [place] [address] 02/28/2021 12:00:00 AM EDT eCW1 ([facility]) ( ESTOB) [facility] Est OB [address] [place] [address] 01/31/2021 12:00:00 AM EDT eCW1 ([facility]) OFFICE OUTPATIENT VISIT 15 MINUTES Attender: MEAGAN JO PULMONARY CARE NURSE Physical Therapy 01/30/2021 01:15:00 PM EDT MEDENT ([facility]) ( ESTOB) [facility] Est OB [address] [place] [address] 01/03/2021 12:00:00 AM EDT eCW1 ([facility]) OFFICE OUTPATIENT VISIT 15 MINUTES Attender: MEAGAN JO PULMONARY CARE NURSE Physical Therapy 12/28/2020 11:45:00 AM EDT MEDENT ([facility]) Unknown [address] [facility] [address] 12/08/2020 12:00:00 AM EDT eCW1 ([facility]) ( ESTOB) enter Est OB [address] [place] [address] 12/06/2020 12:00:00 AM EDT eCW1 ([facility]) OFFICE OUTPATIENT VISIT 15 MINUTES Attender: MEAGAN JO NP Physical Therapy 11/23/2020 11:15:00 AM EDT MEDENT ([facility]) ( ESTOB) [facility] Est OB [address] [place] [address] 11/03/2020 12:00:00 AM EST eCW1 ([facility]) Outpatient Attender: MEAGAN JO NP Physical Therapy 10:45:00 AM EST MEDENT ([facility]) Unknown [address] [facility] [address] 10/16/2020 12:00:00 AM EST eCW1 ([facility]) ( NEWOB) enter New OB Visit [address] [place] [address] 10/04/2020 12:00:00 AM EST eCW1 ([facility]) Outpatient [address] [facility] [address] 09/20/2020 12:00:00 AM EST eCW1 ([facility]) Outpatient Attender: MEAGAN JO NP Physical Therapy 01:15:00 PM EST MEDENT ([facility]) Outpatient Attender: MEAGAN JO NP Physical Therapy 10:30:00 AM EST MEDENT ([facility]) Immunizations Vaccine Date Status Description Data Source(s) Tdap 03/14/2021 03:35:00 PM EDT completed e CW1 ([facility]) Tdap 03/14/2021 03:35:00 PM EDT completed e CW1 ([facility]) Tdap 03/14/2021 03:35:00 PM EDT completed e CW1 ([facility]) Tdap 03/14/2021 03:35:00 PM EDT completed e CW1 ([facility]) Tdap 03/14/2021 03:35:00 PM EDT completed e CW1 ([facility]) Tdap 03/14/2021 03:35:00 PM EDT completed e CW1 ([facility]) Tdap 03/14/2021 03:35:00 PM EDT completed e CW1 ([facility]) Tdap 03/14/2021 03:35:00 PM EDT completed e CW1 ([facility]) Tdap 03/14/2021 03:35:00 PM EDT completed e CW1 ([facility]) Tdap 03/14/2021 03:35:00 PM EDT completed e CW1 ([facility]) Tdap 03/14/2021 03:35:00 PM EDT completed e CW1 ([facility]) Tdap 03/14/2021 03:35:00 PM EDT completed e CW1 ([facility]) Tdap 03/14/2021 03:35:00 PM EDT completed e CW1 ([facility]) Tdap 03/14/2021 03:35:00 PM EDT completed e CW1 ([facility]) Tdap 03/14/2021 03:35:00 PM EDT completed e CW1 ([facility]) COVID-19 VACCINE Pfizer 01/16/2021 12:00:00 AM EDT completed [facility] Vaccine Series Complete: NOThis Data was Submitted to [facility] [employer]. Medications Medication Brand Name Start Date Product Form Dose Route Admi nistrative Instructions Pharmacy Instructions Status Indications Reaction Description Data Source(s) Regular Insulin, Human 100 UNT/ML Inject able Solution [Novolin R] NovoLIN R 100 UNIT/ML NovoLIN R 100 UNIT/ML 03/21/2021 12:00:00 AM EDT active NovoLIN R 100 UNIT/ML eCW1 ([facility]) Regular Insulin, Human 100 UNT/ML Inject able Solution [Novolin R] NovoLIN R 100 UNIT/ML NovoLIN R 100 UNIT/ML 03/21/2021 12:00:00 AM EDT active NovoLIN R 100 UNIT/ML eCW1 ([facility]) insulin human, isophane 100 UNT/ML Injec table Suspension [Novolin N] NovoLIN N 100 UNIT/ML NovoLIN N 100 UNIT/ML 03/21/2021 12:00:00 AM EDT active NovoLIN N 100 UNIT/ML eCW1 ([facility]) insulin human, isophane 100 UNT/ML Injec table Suspension [Novolin N] NovoLIN N 100 UNIT/ML NovoLIN N 100 UNIT/ML 03/21/2021 12:00:00 AM EDT active NovoLIN N 100 UNIT/ML eCW1 ([facility]) Regular Insulin, Human 100 UNT/ML Inject able Solution [Novolin R] NovoLIN R 100 UNIT/ML NovoLIN R 100 UNIT/ML 03/21/2021 12:00:00 AM EDT active NovoLIN R 100 UNIT/ML eCW1 ([facility]) Regular Insulin, Human 100 UNT/ML Inject able Solution [Novolin R] NovoLIN R 100 UNIT/ML NovoLIN R 100 UNIT/ML 03/21/2021 12:00:00 AM EDT active NovoLIN R 100 UNIT/ML eCW1 ([facility]) insulin human, isophane 100 UNT/ML Injec table Suspension [Novolin N] NovoLIN N 100 UNIT/ML NovoLIN N 100 UNIT/ML 03/21/2021 12:00:00 AM EDT active NovoLIN N 100 UNIT/ML eCW1 ([facility]) Insulin Syringe/Needle 28G X 1/2" 0.5 ML Insulin Syrin ge/Needle 28G X 1/2" 0.5 ML 03/21/2021 12:00:00 AM EDT active Insulin Syringe/Needle 28G X 1/2" 0.5 ML eCW1 ([facility]) insulin human, isophane 100 UNT/ML Injec table Suspension [Novolin N] NovoLIN N 100 UNIT/ML NovoLIN N 100 UNIT/ML 03/21/2021 12:00:00 AM EDT active NovoLIN N 100 UNIT/ML eCW1 ([facility]) insulin human, isophane 100 UNT/ML Injec table Suspension [Novolin N] NovoLIN N 100 UNIT/ML NovoLIN N 100 UNIT/ML 03/21/2021 12:00:00 AM EDT suspended NovoLIN N 100 UNIT/ML eCW1 ([facility]) insulin human, isophane 100 UNT/ML Injec table Suspension [Novolin N] NovoLIN N 100 UNIT/ML NovoLIN N 100 UNIT/ML 03/21/2021 12:00:00 AM EDT active NovoLIN N 100 UNIT/ML eCW1 ([facility]) Regular Insulin, Human 100 UNT/ML Inject able Solution [Novolin R] NovoLIN R 100 UNIT/ML NovoLIN R 100 UNIT/ML 03/21/2021 12:00:00 AM EDT active NovoLIN R 100 UNIT/ML eCW1 ([facility]) Insulin Syringe/Needle 28G X 1/2" 0.5 ML Insulin Syrin ge/Needle 28G X 1/2" 0.5 ML 03/21/2021 12:00:00 AM EDT active Insulin Syringe/Needle 28G X 1/2" 0.5 ML eCW1 ([facility]) Insulin Syringe/Needle 28G X 1/2" 0.5 ML Insulin Syrin ge/Needle 28G X 1/2" 0.5 ML 03/21/2021 12:00:00 AM EDT suspended Insulin Syringe/Needle 28G X 1/2" 0.5 ML eCW1 ([facility]) Insulin Syringe/Needle 28G X 1/2" 0.5 ML Insulin Syrin ge/Needle 28G X 1/2" 0.5 ML 03/21/2021 12:00:00 AM EDT active Insulin Syringe/Needle 28G X 1/2" 0.5 ML eCW1 ([facility]) insulin human, isophane 100 UNT/ML Injec table Suspension [Novolin N] NovoLIN N 100 UNIT/ML NovoLIN N 100 UNIT/ML 03/21/2021 12:00:00 AM EDT suspended NovoLIN N 100 UNIT/ML eCW1 ([facility]) insulin human, isophane 100 UNT/ML Injec table Suspension [Novolin N] NovoLIN N 100 UNIT/ML NovoLIN N 100 UNIT/ML 03/21/2021 12:00:00 AM EDT suspended NovoLIN N 100 UNIT/ML eCW1 ([facility]) Insulin Syringe/Needle 28G X 1/2" 0.5 ML Insulin Syrin ge/Needle 28G X 1/2" 0.5 ML 03/21/2021 12:00:00 AM EDT active Insulin Syringe/Needle 28G X 1/2" 0.5 ML eCW1 ([facility]) insulin human, isophane 100 UNT/ML Injec table Suspension [Novolin N] NovoLIN N 100 UNIT/ML NovoLIN N 100 UNIT/ML 03/21/2021 12:00:00 AM EDT active NovoLIN N 100 UNIT/ML eCW1 ([facility]) Insulin Syringe/Needle 28G X 1/2" 0.5 ML Insulin Syrin ge/Needle 28G X 1/2" 0.5 ML 03/21/2021 12:00:00 AM EDT suspended Insulin Syringe/Needle 28G X 1/2" 0.5 ML eCW1 ([facility]) Insulin Syringe/Needle 28G X 1/2" 0.5 ML Insulin Syrin ge/Needle 28G X 1/2" 0.5 ML 03/21/2021 12:00:00 AM EDT suspended Insulin Syringe/Needle 28G X 1/2" 0.5 ML eCW1 ([facility]) Regular Insulin, Human 100 UNT/ML Inject able Solution [Novolin R] NovoLIN R 100 UNIT/ML NovoLIN R 100 UNIT/ML 03/21/2021 12:00:00 AM EDT suspended NovoLIN R 100 UNIT/ML eCW1 ([facility]) Regular Insulin, Human 100 UNT/ML Inject able Solution [Novolin R] NovoLIN R 100 UNIT/ML NovoLIN R 100 UNIT/ML 03/21/2021 12:00:00 AM EDT active NovoLIN R 100 UNIT/ML eCW1 ([facility]) Regular Insulin, Human 100 UNT/ML Inject able Solution [Novolin R] NovoLIN R 100 UNIT/ML NovoLIN R 100 UNIT/ML 03/21/2021 12:00:00 AM EDT active eCW1 ([facility]) Insulin Syringe/Needle 28G X 1/2" 0.5 ML Insulin Syrin ge/Needle 28G X 1/2" 0.5 ML 03/21/2021 12:00:00 AM EDT active Insulin Syringe/Needle 28G X 1/2" 0.5 ML eCW1 ([facility]) Regular Insulin, Human 100 UNT/ML Inject able Solution [Novolin R] NovoLIN R 100 UNIT/ML NovoLIN R 100 UNIT/ML 03/21/2021 12:00:00 AM EDT suspended NovoLIN R 100 UNIT/ML eCW1 ([facility]) Regular Insulin, Human 100 UNT/ML Inject able Solution [Novolin R] NovoLIN R 100 UNIT/ML NovoLIN R 100 UNIT/ML 03/21/2021 12:00:00 AM EDT suspended NovoLIN R 100 UNIT/ML eCW1 ([facility]) Insulin Syringe/Needle 28G X 1/2" 0.5 ML Insulin Syrin ge/Needle 28G X 1/2" 0.5 ML 03/21/2021 12:00:00 AM EDT active Insulin Syringe/Needle 28G X 1/2" 0.5 ML eCW1 ([facility]) Insulin Syringe/Needle 28G X 1/2" 0.5 ML Insulin Syrin ge/Needle 28G X 1/2" 0.5 ML 03/21/2021 12:00:00 AM EDT active eCW1 ([facility]) Regular Insulin, Human 100 UNT/ML Inject able Solution [Novolin R] NovoLIN R 100 UNIT/ML NovoLIN R 100 UNIT/ML 03/21/2021 12:00:00 AM EDT active NovoLIN R 100 UNIT/ML eCW1 ([facility]) insulin human, isophane 100 UNT/ML Injec table Suspension [Novolin N] NovoLIN N 100 UNIT/ML NovoLIN N 100 UNIT/ML 03/21/2021 12:00:00 AM EDT active NovoLIN N 100 UNIT/ML eCW1 ([facility]) Insulin Syringe/Needle 28G X 1/2" 0.5 ML Insulin Syrin ge/Needle 28G X 1/2" 0.5 ML 03/21/2021 12:00:00 AM EDT active Insulin Syringe/Needle 28G X 1/2" 0.5 ML eCW1 ([facility]) Regular Insulin, Human 100 UNT/ML Inject able Solution [Novolin R] NovoLIN R 100 UNIT/ML NovoLIN R 100 UNIT/ML 03/21/2021 12:00:00 AM EDT active NovoLIN R 100 UNIT/ML eCW1 ([facility]) insulin human, isophane 100 UNT/ML Injec table Suspension [Novolin N] NovoLIN N 100 UNIT/ML NovoLIN N 100 UNIT/ML 03/21/2021 12:00:00 AM EDT active NovoLIN N 100 UNIT/ML eCW1 ([facility]) insulin human, isophane 100 UNT/ML Injec table Suspension [Novolin N] NovoLIN N 100 UNIT/ML NovoLIN N 100 UNIT/ML 03/21/2021 12:00:00 AM EDT active eCW1 ([facility]) Insulin Syringe/Needle 28G X 1/2" 0.5 ML Insulin Syrin ge/Needle 28G X 1/2" 0.5 ML 03/21/2021 12:00:00 AM EDT active Insulin Syringe/Needle 28G X 1/2" 0.5 ML eCW1 ([facility]) Glucose Monitor - UNK 03/09/2021 12:00:00 AM EDT suspended Glucose Monitor - eCW1 ([facility]) Test Strips - UNK 03/09/2021 12:00:00 AM EDT acti ve Test Strips - eCW1 ([facility]) Glucose Monitor - UNK 03/09/2021 12:00:00 AM EDT active Glucose Monitor - eCW1 ([facility]) Levothyroxine Sodium 0.05 MG Oral Tablet Levothyroxine Sodiu m 03/09/2021 12:00:00 AM EDT ORAL active M EDENT ([facility]) Glucose Monitor - UNK 03/09/2021 12:00:00 AM EDT active Glucose Monitor - eCW1 ([facility]) Glucose Monitor - UNK 03/09/2021 12:00:00 AM EDT suspended Glucose Monitor - eCW1 ([facility]) Glucose Monitor - UNK 03/09/2021 12:00:00 AM EDT active Glucose Monitor - eCW1 ([facility]) Glucose Monitor - UNK 03/09/2021 12:00:00 AM EDT active Glucose Monitor - eCW1 ([facility]) Glucose Monitor - UNK 03/09/2021 12:00:00 AM EDT active eCW1 ([facility]) Lancets - Lancets - 03/09/2021 12:00:00 AM EDT act kendal Lancets - eCW1 ([facility]) Glucose Monitor - UNK 03/09/2021 12:00:00 AM EDT active Glucose Monitor - eCW1 ([facility]) Glucose Monitor - UNK 03/09/2021 12:00:00 AM EDT active Glucose Monitor - eCW1 ([facility]) Glucose Monitor - UNK 03/09/2021 12:00:00 AM EDT active Glucose Monitor - eCW1 ([facility]) Glucose Monitor - UNK 03/09/2021 12:00:00 AM EDT active Glucose Monitor - eCW1 ([facility]) Glucose Monitor - UNK 03/09/2021 12:00:00 AM EDT active Glucose Monitor - eCW1 ([facility]) Glucose Monitor - UNK 03/09/2021 12:00:00 AM EDT suspended Glucose Monitor - eCW1 ([facility]) Glucose Monitor - UNK 03/09/2021 12:00:00 AM EDT active Glucose Monitor - eCW1 ([facility]) Alcohol Wipes 70 % Alcohol Wipes 70 % 03/09/2021 12:00:00 AM EDT active Alcohol Wipes 70 % eCW1 ([facility]) Glucose Monitor - UNK 03/09/2021 12:00:00 AM EDT active Glucose Monitor - eCW1 ([facility]) Glucose Monitor - UNK 03/09/2021 12:00:00 AM EDT active Glucose Monitor - eCW1 ([facility]) Alcohol Wipes 70 % UNK 03/08/2021 12:00:00 AM EDT active Alcohol Wipes 70 % eCW1 ([facility]) Lancets - Lancets - 03/08/2021 12:00:00 AM EDT act kendal Lancets - eCW1 ([facility]) Glucose Monitor - UNK 03/08/2021 12:00:00 AM EDT active Glucose Monitor - eCW1 ([facility]) Lancets - Lancets - 03/08/2021 12:00:00 AM EDT act kendal Lancets - eCW1 ([facility]) Lancets - Lancets - 03/08/2021 12:00:00 AM EDT act kendal Lancets - eCW1 ([facility]) Alcohol Wipes 70 % Alcohol Wipes 70 % 03/08/2021 12:00:00 AM EDT active Alcohol Wipes 70 % eCW1 ([facility]) Alcohol Wipes 70 % UNK 03/08/2021 12:00:00 AM EDT suspended Alcohol Wipes 70 % eCW1 ([facility]) Lancets - Lancets - 03/08/2021 12:00:00 AM EDT act kendal eCW1 ([facility]) Lancets - Lancets - 03/08/2021 12:00:00 AM EDT act kendal Lancets - eCW1 ([facility]) Lancets - Lancets - 03/08/2021 12:00:00 AM EDT act kendal Lancets - eCW1 ([facility]) Alcohol Wipes 70 % UNK 03/08/2021 12:00:00 AM EDT active Alcohol Wipes 70 % eCW1 ([facility]) Test Strips - UNK 03/08/2021 12:00:00 AM EDT suspended Test Strips - eCW1 ([facility]) Test Strips - UNK 03/08/2021 12:00:00 AM EDT acti ve Test Strips - eCW1 ([facility]) Alcohol Wipes 70 % Alcohol Wipes 70 % 03/08/2021 12:00:00 AM EDT active Alcohol Wipes 70 % eCW1 ([facility]) Test Strips - UNK 03/08/2021 12:00:00 AM EDT acti ve Test Strips - eCW1 ([facility]) Lancets - Lancets - 03/08/2021 12:00:00 AM EDT act kendal Lancets - eCW1 ([facility]) Test Strips - UNK 03/08/2021 12:00:00 AM EDT acti ve Test Strips - eCW1 ([facility]) Alcohol Wipes 70 % Alcohol Wipes 70 % 03/08/2021 12:00:00 AM EDT active Alcohol Wipes 70 % eCW1 ([facility]) Alcohol Wipes 70 % UNK 03/08/2021 12:00:00 AM EDT active Alcohol Wipes 70 % eCW1 ([facility]) Test Strips - UNK 03/08/2021 12:00:00 AM EDT acti ve Test Strips - eCW1 ([facility]) Lancets - Lancets - 03/08/2021 12:00:00 AM EDT act kendal Lancets - eCW1 ([facility]) Test Strips - UNK 03/08/2021 12:00:00 AM EDT acti ve Test Strips - eCW1 ([facility]) Test Strips - UNK 03/08/2021 12:00:00 AM EDT acti ve Test Strips - eCW1 ([facility]) Test Strips - UNK 03/08/2021 12:00:00 AM EDT suspended Test Strips - eCW1 ([facility]) Lancets - Lancets - 03/08/2021 12:00:00 AM EDT act kendal Lancets - eCW1 ([facility]) Lancets - Lancets - 03/08/2021 12:00:00 AM EDT act kendal Lancets - eCW1 ([facility]) Alcohol Wipes 70 % UNK 03/08/2021 12:00:00 AM EDT active Alcohol Wipes 70 % eCW1 ([facility]) Alcohol Wipes 70 % UNK 03/08/2021 12:00:00 AM EDT suspended Alcohol Wipes 70 % eCW1 ([facility]) Alcohol Wipes 70 % Alcohol Wipes 70 % 03/08/2021 12:00:00 AM EDT active Alcohol Wipes 70 % eCW1 ([facility]) Alcohol Wipes 70 % UNK 03/08/2021 12:00:00 AM EDT suspended Alcohol Wipes 70 % eCW1 ([facility]) Test Strips - UNK 03/08/2021 12:00:00 AM EDT acti ve Test Strips - eCW1 ([facility]) Alcohol Wipes 70 % UNK 03/08/2021 12:00:00 AM EDT active eCW1 ([facility]) Lancets - Lancets - 03/08/2021 12:00:00 AM EDT suspended Lancets - eCW1 ([facility]) Lancets - Lancets - 03/08/2021 12:00:00 AM EDT act kendal Lancets - eCW1 ([facility]) Test Strips - UNK 03/08/2021 12:00:00 AM EDT acti ve Test Strips - eCW1 ([facility]) Test Strips - UNK 03/08/2021 12:00:00 AM EDT acti ve Test Strips - eCW1 ([facility]) Alcohol Wipes 70 % UNK 03/08/2021 12:00:00 AM EDT active Alcohol Wipes 70 % eCW1 ([facility]) Test Strips - UNK 03/08/2021 12:00:00 AM EDT acti ve eCW1 ([facility]) Alcohol Wipes 70 % Alcohol Wipes 70 % 03/08/2021 12:00:00 AM EDT active Alcohol Wipes 70 % eCW1 ([facility]) Test Strips - UNK 03/08/2021 12:00:00 AM EDT suspended Test Strips - eCW1 ([facility]) Lancets - Lancets - 03/08/2021 12:00:00 AM EDT suspended Lancets - eCW1 ([facility]) Lancets - Lancets - 03/08/2021 12:00:00 AM EDT suspended Lancets - eCW1 ([facility]) Test Strips - UNK 03/08/2021 12:00:00 AM EDT acti ve Test Strips - eCW1 ([facility]) Alcohol Wipes 70 % UNK 03/08/2021 12:00:00 AM EDT active Alcohol Wipes 70 % eCW1 ([facility]) Test Strips - UNK 03/08/2021 12:00:00 AM EDT acti ve Test Strips - eCW1 ([facility]) Test Strips - UNK 03/08/2021 12:00:00 AM EDT acti ve Test Strips - eCW1 ([facility]) Alcohol Wipes 70 % UNK 03/08/2021 12:00:00 AM EDT active Alcohol Wipes 70 % eCW1 ([facility]) Lancets - Lancets - 03/08/2021 12:00:00 AM EDT act kendal Lancets - eCW1 ([facility]) Lancets - Lancets - 03/08/2021 12:00:00 AM EDT act kendal Lancets - eCW1 ([facility]) ferrous sulfate 325 MG Delayed Release O ral Tablet Ferrous Sulfate 325 (65 Fe) MG Ferrous Sulfate 325 (65 Fe) MG 02/28/2021 12:00:00 AM EDT 1. 0 {tablet} active Ferrous Sulfate 325 (65 Fe) MG eCW1 ([facility]) ferrous sulfate 325 MG Delayed Release O ral Tablet Ferrous Sulfate 325 (65 Fe) MG Ferrous Sulfate 325 (65 Fe) MG 02/28/2021 12:00:00 AM EDT 1. 0 {tablet} active Ferrous Sulfate 325 (65 Fe) MG eCW1 ([facility]) ferrous sulfate 325 MG Delayed Release O ral Tablet Ferrous Sulfate 325 (65 Fe) MG Ferrous Sulfate 325 (65 Fe) MG 02/28/2021 12:00:00 AM EDT 1. 0 {tablet} active Ferrous Sulfate 325 (65 Fe) MG eCW1 ([facility]) ferrous sulfate 325 MG Delayed Release O ral Tablet Ferrous Sulfate 325 (65 Fe) MG Ferrous Sulfate 325 (65 Fe) MG 02/28/2021 12:00:00 AM EDT 1. 0 {tablet} active Ferrous Sulfate 325 (65 Fe) MG eCW1 ([facility]) ferrous sulfate 325 MG Delayed Release O ral Tablet Ferrous Sulfate 325 (65 Fe) MG Ferrous Sulfate 325 (65 Fe) MG 02/28/2021 12:00:00 AM EDT 1. 0 {tablet} active eCW1 ([facility]) ferrous sulfate 325 MG Delayed Release O ral Tablet Ferrous Sulfate 325 (65 Fe) MG Ferrous Sulfate 325 (65 Fe) MG 02/28/2021 12:00:00 AM EDT 1. 0 {tablet} active Ferrous Sulfate 325 (65 Fe) MG eCW1 ([facility]) ferrous sulfate 325 MG Delayed Release O ral Tablet Ferrous Sulfate 325 (65 Fe) MG Ferrous Sulfate 325 (65 Fe) MG 02/28/2021 12:00:00 AM EDT 1. 0 {tablet} active Ferrous Sulfate 325 (65 Fe) MG eCW1 ([facility]) ferrous sulfate 325 MG Delayed Release O ral Tablet Ferrous Sulfate 325 (65 Fe) MG Ferrous Sulfate 325 (65 Fe) MG 02/28/2021 12:00:00 AM EDT 1. 0 {tablet} active Ferrous Sulfate 325 (65 Fe) MG eCW1 ([facility]) ferrous sulfate 325 MG Delayed Release O ral Tablet Ferrous Sulfate 325 (65 Fe) MG Ferrous Sulfate 325 (65 Fe) MG 02/28/2021 12:00:00 AM EDT 1. 0 {tablet} active Ferrous Sulfate 325 (65 Fe) MG eCW1 ([facility]) ferrous sulfate 325 MG Delayed Release O ral Tablet Ferrous Sulfate 325 (65 Fe) MG Ferrous Sulfate 325 (65 Fe) MG 02/28/2021 12:00:00 AM EDT 1. 0 {tablet} active Ferrous Sulfate 325 (65 Fe) MG eCW1 ([facility]) ferrous sulfate 325 MG Delayed Release O ral Tablet Ferrous Sulfate 325 (65 Fe) MG Ferrous Sulfate 325 (65 Fe) MG 02/28/2021 12:00:00 AM EDT 1. 0 {tablet} active Ferrous Sulfate 325 (65 Fe) MG eCW1 ([facility]) ferrous sulfate 325 MG Delayed Release O ral Tablet Ferrous Sulfate 325 (65 Fe) MG Ferrous Sulfate 325 (65 Fe) MG 02/28/2021 12:00:00 AM EDT 1. 0 {tablet} active Ferrous Sulfate 325 (65 Fe) MG eCW1 ([facility]) ferrous sulfate 325 MG Delayed Release O ral Tablet Ferrous Sulfate 325 (65 Fe) MG Ferrous Sulfate 325 (65 Fe) MG 02/28/2021 12:00:00 AM EDT 1. 0 {tablet} active Ferrous Sulfate 325 (65 Fe) MG eCW1 ([facility]) ferrous sulfate 325 MG Delayed Release O ral Tablet Ferrous Sulfate 325 (65 Fe) MG Ferrous Sulfate 325 (65 Fe) MG 02/28/2021 12:00:00 AM EDT 1. 0 {tablet} active Ferrous Sulfate 325 (65 Fe) MG eCW1 ([facility]) ferrous sulfate 325 MG Delayed Release O ral Tablet Ferrous Sulfate 325 (65 Fe) MG Ferrous Sulfate 325 (65 Fe) MG 02/28/2021 12:00:00 AM EDT 1. 0 {tablet} active Ferrous Sulfate 325 (65 Fe) MG eCW1 ([facility]) ferrous sulfate 325 MG Delayed Release O ral Tablet Ferrous Sulfate 325 (65 Fe) MG Ferrous Sulfate 325 (65 Fe) MG 02/28/2021 12:00:00 AM EDT 1. 0 {tablet} active Ferrous Sulfate 325 (65 Fe) MG eCW1 ([facility]) ferrous sulfate 325 MG Delayed Release O ral Tablet Ferrous Sulfate 325 (65 Fe) MG Ferrous Sulfate 325 (65 Fe) MG 02/28/2021 12:00:00 AM EDT 1. 0 {tablet} active Ferrous Sulfate 325 (65 Fe) MG eCW1 ([facility]) buspirone hydrochloride 5 MG Oral Tablet busPIRone HCl 5 MG busPIRone HCl 5 MG 01/31/2021 12:00:00 AM EDT 1.0 {tablet} suspende d busPIRone HCl 5 MG eCW1 ([facility]) buspirone hydrochloride 5 MG Oral Tablet busPIRone HCl 5 MG busPIRone HCl 5 MG 01/31/2021 12:00:00 AM EDT 1.0 {tablet} active busPIRone HCl 5 MG eCW1 ([facility]) buspirone hydrochloride 5 MG Oral Tablet busPIRone HCl 5 MG busPIRone HCl 5 MG 01/31/2021 12:00:00 AM EDT 1.0 {tablet} active busPIRone HCl 5 MG eCW1 ([facility]) buspirone hydrochloride 5 MG Oral Tablet busPIRone HCl 5 MG busPIRone HCl 5 MG 01/31/2021 12:00:00 AM EDT 1.0 {tablet} active busPIRone HCl 5 MG eCW1 ([facility]) buspirone hydrochloride 5 MG Oral Tablet busPIRone HCl 5 MG busPIRone HCl 5 MG 01/31/2021 12:00:00 AM EDT 1.0 {tablet} active busPIRone HCl 5 MG eCW1 ([facility]) buspirone hydrochloride 5 MG Oral Tablet busPIRone HCl 5 MG busPIRone HCl 5 MG 01/31/2021 12:00:00 AM EDT 1.0 {tablet} active busPIRone HCl 5 MG eCW1 ([facility]) buspirone hydrochloride 5 MG Oral Tablet busPIRone HCl 5 MG busPIRone HCl 5 MG 01/31/2021 12:00:00 AM EDT 1.0 {tablet} active busPIRone HCl 5 MG eCW1 ([facility]) buspirone hydrochloride 5 MG Oral Tablet busPIRone HCl 5 MG busPIRone HCl 5 MG 01/31/2021 12:00:00 AM EDT 1.0 {tablet} active busPIRone HCl 5 MG eCW1 ([facility]) buspirone hydrochloride 5 MG Oral Tablet busPIRone HCl 5 MG busPIRone HCl 5 MG 01/31/2021 12:00:00 AM EDT 1.0 {tablet} active busPIRone HCl 5 MG eCW1 ([facility]) buspirone hydrochloride 5 MG Oral Tablet busPIRone HCl 5 MG busPIRone HCl 5 MG 01/31/2021 12:00:00 AM EDT 1.0 {tablet} active eCW1 ([facility]) buspirone hydrochloride 5 MG Oral Tablet busPIRone HCl 5 MG busPIRone HCl 5 MG 01/31/2021 12:00:00 AM EDT 1.0 {tablet} suspende d busPIRone HCl 5 MG eCW1 ([facility]) buspirone hydrochloride 5 MG Oral Tablet busPIRone HCl 5 MG busPIRone HCl 5 MG 01/31/2021 12:00:00 AM EDT 1.0 {tablet} active busPIRone HCl 5 MG eCW1 ([facility]) buspirone hydrochloride 5 MG Oral Tablet busPIRone HCl 5 MG busPIRone HCl 5 MG 01/31/2021 12:00:00 AM EDT 1.0 {tablet} active busPIRone HCl 5 MG eCW1 ([facility]) buspirone hydrochloride 5 MG Oral Tablet busPIRone HCl 5 MG busPIRone HCl 5 MG 01/31/2021 12:00:00 AM EDT 1.0 {tablet} suspende d busPIRone HCl 5 MG eCW1 ([facility]) buspirone hydrochloride 5 MG Oral Tablet busPIRone HCl 5 MG busPIRone HCl 5 MG 01/31/2021 12:00:00 AM EDT 1.0 {tablet} active busPIRone HCl 5 MG eCW1 ([facility]) buspirone hydrochloride 5 MG Oral Tablet busPIRone HCl 5 MG busPIRone HCl 5 MG 01/31/2021 12:00:00 AM EDT 1.0 {tablet} active busPIRone HCl 5 MG eCW1 ([facility]) buspirone hydrochloride 5 MG Oral Tablet busPIRone HCl 5 MG busPIRone HCl 5 MG 01/31/2021 12:00:00 AM EDT 1.0 {tablet} active busPIRone HCl 5 MG eCW1 ([facility]) buspirone hydrochloride 5 MG Oral Tablet busPIRone HCl 5 MG busPIRone HCl 5 MG 01/31/2021 12:00:00 AM EDT 1.0 {tablet} active busPIRone HCl 5 MG eCW1 ([facility]) Levothyroxine Sodium 0.075 MG Oral Tablet Levothyroxine Sodi um 07/17/2020 12:00:00 AM EST ORAL active M EDENT ([facility]) Levothyroxine Sodium 0.05 MG Oral Tablet Levothyroxine Sodiu m 05/16/2020 12:00:00 AM EDT ORAL completed MEDENT ([facility]) Insurance Providers Payer name Policy type / Coverage type Policy ID Covered republican ID Covered republican's relationship to hernandez Policy Hernandez Plan Information [place] [id number] [facility] [id number] U [id number] Self [id number] [facility] [id number] SP [id number] [employer] [place] [id number] S [id number] [place] [facility] [id number] [facility] [id number] [facility] [id number] S [id number] [facility] [id number] SP [id number] [facility] [id number] 18 [id number] [facility] [id number] 18 [id number] [facility] [id number] SPO [id number] [facility] [id number] SPO [id number] ANSI-Not a Secondary Insurance [id number] [facility] [place] [id number] 18 [id number] [facility] P UNAVAILABLE S UNAVAILABLE [facility] O [id number] S [id number] Problems, Conditions, and Diagnoses Code Display Name Description Problem Type Effective Dates Data Source(s) O99.213 Maternal obesity complicatin g , childbirth and the puerperium, antepartum Obesity complicating , third trimester Problem 04/16/2021 12:00:00 AM EDT eCW1 ([facility]) O99.019 Anemia in mother complicating , childbirth AND/OR puerperium Anemia affecting Problem 02/28/2021 12:00:00 AM EDT eCW1 ( [facility]) O99.282 [id number] Endocrine, nutrition al and metabolic diseases complicating , second trimester Problem 01/31/2021 12:00:00 AM EDT eCW1 ([facility]) E66.09 [id number] Other obesity due to excess calories Prob rosalie 01/03/2021 12:00:00 AM EDT eCW1 ([facility]) O99.212 [id number] Obesity complicating in second trimester Problem 01/03/2021 12:00:00 AM EDT eCW1 ([facility]) E66.9 Obesity Obesity Problem 11/03/2020 12:00:00 AM ES T eCW1 ([facility]) O99.211 Obesity complicating , first tr imester Obesity complicating in first trimester Problem 10/04/2020 12:00:00 AM EST eCW1 ([facility]) Z34.80 care Supervision of other normal P roblem 10/03/2020 12:00:00 AM EST eCW1 ([facility]) N92.6 [id number] Missed menses Problem 09/20/2020 12:00:00 AM EST eCW1 ([facility]) Surgeries/Procedures Procedure Description Date Indications Data Source(s) NONSTRESS TEST 04/16/2021 12:00:00 AM EDT eCW1 ([facility]) NONSTRESS TEST 04/06/2021 12:00:00 AM EDT eCW1 ([facility]) NONSTRESS TEST 03/30/2021 12:00:00 AM EDT eCW1 ([facility]) TDAP VACCINE 7/> YR IM 03/14/2021 12:00:00 AM EDT eCW1 ([facility]) OFFICE OUTPATIENT VISIT 25 MINUTES 03/09/2021 12:00:00 AM EDT MEDENT ([facility]) OFFICE OUTPATIENT VISIT 15 MINUTES 01/30/2021 12:00:00 AM EDT MEDENT ([facility]) OFFICE OUTPATIENT VISIT 15 MINUTES 12/28/2020 12:00:00 AM EDT MEDENT ([facility]) OFFICE OUTPATIENT VISIT 15 MINUTES 11/23/2020 12:00:00 AM EDT MEDENT ([facility]) OFFICE OUTPATIENT VISIT 25 MINUTES 10/26/2020 12:00:00 AM EST MEDENT ([facility]) OFFICE OUTPATIENT VISIT 25 MINUTES 09/14/2020 12:00:00 AM EST MEDENT ([facility]) Results ID Date Data Source [id number] 07/28/2021 11:45:00 AM EST [facility] Name Value Range Interpretation Code Description Data Zo rce(s) Supporting Document(s) SARS-CoV-2 (COVID-19) RNA [Presence] in Respiratory specimen by JOEL with probe detection Not Detected [facility] This lab was ordered by [facility] and reported by [employer] ID Date Data Source [id number] 04/27/2021 06:24:00 PM EDT [facility] Name Value Range Interpretation Code Description Data Zo rce(s) Supporting Document(s) SARS coronavirus 2 RNA [Presence] in Res piratory specimen by JOEL with probe detection NEGATIVE [facility] This lab was ordered by [facility] a nd reported by [facility]. ID Date Data Source [id number] 03/07/2021 11:06:00 AM EDT MEDENT ([facility]) Name Value Range Interpretation Code Description Data Zo rce(s) Supporting Document(s) Thyroid Stimulating Hormone 0.384 uIU/ML 0.358-3.740 MEDENT ([facility]) Free T4 0.94 ng/dL 0.76-1.46 MEDENT ([facility]) ID Date Data Source Glucose Challenge Test 1 Hour 02/15/2021 12:00:00 AM EDT eCW 1 ([facility]) Name Value Range Interpretation Code Description Data Zo rce(s) Supporting Document(s) 170 LESS THAN 140 GLUCOSE CHALLENGE TEST 1 HOUR eCW1 ([facility]) ID Date Data Source CBC - Complete Blood Count 02/15/2021 12:00:00 AM EDT eCW1 ( [facility]) Name Value Range Interpretation Code Description Data Zo rce(s) Supporting Document(s) 10.0 12.0-15.5 HEMOGLOBIN eCW1 ([facility]) 3.43 4.00-5.40 RED BLOOD COUNT eCW1 (Count includes the [facility]) 8.1 4.0-10.0 WHITE BLOOD COUNT eCW1 ([facility]) 93.9 80.0-96.0 MEAN CORPUSCULAR VOLUME e CW1 ([facility]) 32.2 36.0-47.0 HEMATOCRIT eCW1 ([facility]) 29.2 27.0-33.0 MEAN CORPUSCULAR HEMOGLOB IN eCW1 ([facility]) 195 150-450 PLATELET COUNT, AUTOMATED eCW1 ([facility]) 31.1 32.0-36.5 MEAN CORPUSCULAR HGB CONC eCW1 ([facility]) 13.7 11.5-14.5 RED CELL DISTRIBUTION WID TH eCW1 ([facility]) ID Date Data Source Type and Screen (D Rh Antibody Screen) 02/15/2021 12:00:00 A M EDT eCW1 ([facility]) Name Value Range Interpretation Code Description Data Zo rce(s) Supporting Document(s) NEGATIVE AB SCREEN (INDIRECT COOMB S)VIS eCW1 ([facility]) AB POSITIVE BLOOD TYPE eCW1 ([facility]) ID Date Data Source [id number] 01/23/2021 01:58:00 PM EDT MEDENT ([facility]) Name Value Range Interpretation Code Description Data Zo rce(s) Supporting Document(s) Thyroid Stimulating Hormone 0.932 uIU/ML 0.358-3.740 MEDENT ([facility]) Free T4 0.82 ng/dL 0.76-1.46 MEDENT ([facility]) ID Date Data Source WWBC OBS FOLLOW UP OR REPEAT 01/18/2021 12:00:00 AM EDT eCW1 ([facility]) Name Value Range Interpretation Code Description Data Zo rce(s) Supporting Document(s) WWBC OBS FOLLOW UP OR REPEAT e CW1 ([facility]) ID Date Data Source [id number] 11/17/2020 01:58:00 PM EDT MEDENT ([facility]) Name Value Range Interpretation Code Description Data Zo rce(s) Supporting Document(s) Thyroid Stimulating Hormone 0.274 uIU/ML 0.358-3.740 MEDENT ([facility]) Free T4 0.94 ng/dL 0.76-1.46 MEDENT ([facility]) ID Date Data Source [id number] 10/20/2020 12:02:00 PM EST MEDENT ([facility]) Name Value Range Interpretation Code Description Data Zo rce(s) Supporting Document(s) Thyroxine (T4) free [Mass/volume] in Serum or Plasma 1.05 ng/dL 0.76- 1.46 MEDENT ([facility]) Thyrotropin [Units/volume] in Serum or Plasma by Detec tion limit <= 0.05 mIU/L 0.316 uIU/ML 0.358-3.740 MEDENT ([facility]) ID Date Data Source [id number] 10/04/2020 12:00:00 AM EST eCW1 ([facility]) Name Value Range Interpretation Code Description Data Zo rce(s) Supporting Document(s) NEGATIVE NEGATIVE eCW1 ([facility]) ID Date Data Source URINE CULTURE 10/04/2020 12:00:00 AM EST eCW1 ([facility]) Name Value Range Interpretation Code Description Data Zo rce(s) Supporting Document(s) eCW1 ([facility]) ID Date Data Source Pre Eclampsia Profile 10/04/2020 12:00:00 AM EST eCW1 ([facility]) Name Value Range Interpretation Code Description Data Zo rce(s) Supporting Document(s) 0.80 0.55-1.30 eCW1 ([facility]) > 60.0 >60 eCW1 ([facility]) 9 7-37 eCW1 ([facility]) 152 84-246 eCW1 ([facility]) 35 12-78 eCW1 ([facility]) 4.4 2.6-6.0 eCW1 ([facility]) 0.7 0.2-1.0 eCW1 ([facility]) ID Date Data Source HEPATITIS C ANTIBODY INDEX 10/04/2020 12:00:00 AM EST eCW1 ( [facility]) Name Value Range Interpretation Code Description Data Zo rce(s) Supporting Document(s) < 0.0 <0.8 W1 ([facility]) ID Date Data Source RUBELLA IMMUNE STATUS IgG 10/04/2020 12:00:00 AM EST eCW1 ([facility]) Name Value Range Interpretation Code Description Data Zo rce(s) Supporting Document(s) IMMUNE IMMUNE eCW1 ([facility]) ID Date Data Source SYPHILIS ANTIBODY (RPR SCREEN) 10/04/2020 12:00:00 AM EST eC W1 ([facility]) Name Value Range Interpretation Code Description Data Zo rce(s) Supporting Document(s) NONREACTIVE NONREACTIVE eCW1 ([facility]) ID Date Data Source [id number] 10/04/2020 12:00:00 AM EST eCW1 ([facility]) Name Value Range Interpretation Code Description Data Zo rce(s) Supporting Document(s) eCW1 ([facility]) ID Date Data Source CHLAMYDIA & GC DNA AMPLIFICAT 10/04/2020 12:00:00 AM EST eCW 1 ([facility]) Name Value Range Interpretation Code Description Data Zo rce(s) Supporting Document(s) Chlamydia trachomatis rRNA [Presence] in Unspecified specimen by Probe and target amplification method NEGATIVE NEGATIVE eCW1 ([facility]) ID Date Data Source TOTAL PROTEIN,RANDOM URINE 10/04/2020 12:00:00 AM EST eCW1 ( [facility]) Name Value Range Interpretation Code Description Data Zo rce(s) Supporting Document(s) < 5.0 0.0-12.0 eCW1 ([facility]) ID Date Data Source CREATININE,RANDOM URINE 10/04/2020 12:00:00 AM EST eCW1 ([facility]) Name Value Range Interpretation Code Description Data Zo rce(s) Supporting Document(s) 47.8 eCW1 ([facility]) ID Date Data Source Type and Screen Prenatal1 10/04/2020 12:00:00 AM EST eCW1 ([facility]) Name Value Range Interpretation Code Description Data Zo rce(s) Supporting Document(s) NEGATIVE eCW1 ([facility]) ID Date Data Source [id number] 09/11/2020 09:48:00 AM EST MEDENT ([facility]) Name Value Range Interpretation Code Description Data Zo rce(s) Supporting Document(s) Thyroid Stimulating Hormone 2.730 uIU/ML 0.358-3.740 MEDENT ([facility]) Free T4 1.06 ng/dL 0.76-1.46 [facility] ([facility]) ID Date Data Source [id number] 07/10/2020 09:52:00 AM EST MEDENT ([facility]) Name Value Range Interpretation Code Description Data Zo rce(s) Supporting Document(s) Thyroid Stimulating Hormone 4.530 uIU/ML 0.358-3.740 MEDENT ([facility]) Free T4 0.87 ng/dL 0.76-1.46 MEDENT ([facility]) Procedure Social History Code Duration Value Status Description Data Source(s ) Smoking 07/12/2021 12:00:00 AM EST Never Smoker completed Never S moker eCW1 ([facility]) Smoking 07/12/2021 12:00:00 AM EST Never Smoker completed Never S moker eCW1 ([facility]) Smoking 06/27/2021 12:00:00 AM EDT Never Smoker completed Never S moker eCW1 ([facility]) Smoking 04/23/2021 12:00:00 AM EDT Never Smoker completed Never S moker eCW1 ([facility]) Smoking 04/23/2021 12:00:00 AM EDT Never Smoker completed Never S moker eCW1 ([facility]) Smoking 04/23/2021 12:00:00 AM EDT Never Smoker completed Never S moker eCW1 ([facility]) Smoking 04/16/2021 12:00:00 AM EDT Never Smoker completed Never S moker eCW1 ([facility]) Smoking 04/06/2021 12:00:00 AM EDT Never Smoker completed Never S moker eCW1 ([facility]) Smoking 04/04/2021 12:00:00 AM EDT Never Smoker completed Never S moker eCW1 ([facility]) Smoking 03/28/2021 12:00:00 AM EDT Never Smoker completed Never S moker eCW1 ([facility]) Smoking 03/28/2021 12:00:00 AM EDT Never Smoker completed Never S moker eCW1 ([facility]) Smoking 03/21/2021 12:00:00 AM EDT Never Smoker completed Never S moker eCW1 ([facility]) Smoking 03/14/2021 12:00:00 AM EDT Never Smoker completed Never S moker eCW1 ([facility]) Smoking 03/14/2021 12:00:00 AM EDT Never Smoker completed Never S moker eCW1 ([facility]) Smoking 03/14/2021 12:00:00 AM EDT Never Smoker completed Never S moker eCW1 ([facility]) Smoking 02/26/2021 12:00:00 AM EDT Never Smoker completed Never S moker eCW1 ([facility]) Smoking 02/26/2021 12:00:00 AM EDT Never Smoker completed Never S moker eCW1 ([facility]) Smoking 02/26/2021 12:00:00 AM EDT Never Smoker completed Never S moker eCW1 ([facility]) Smoking 01/03/2021 12:00:00 AM EDT Never Smoker completed Never S moker eCW1 ([facility]) Smoking 12/05/2020 12:00:00 AM EDT Never Smoker completed Never S moker eCW1 ([facility]) Smoking 11/03/2020 12:00:00 AM EST Never Smoker completed Never S moker eCW1 ([facility]) Smoking 10/04/2020 12:00:00 AM EST Never Smoker completed Never S moker eCW1 ([facility]) Smoking 10/04/2020 12:00:00 AM EST Never Smoker completed Never S moker eCW1 ([facility]) Smoking 09/20/2020 12:00:00 AM EST Never Smoker completed Never S moker eCW1 ([facility]) Vital Signs ID Date Data Source UNK Name Value Range Interpretation Code Description Data Source(s) Body weight 143.4 [lb_av] 143.4 [lb_av] eCW1 ([facility]) Body weight 65.05 kg 65.05 kg W1 ([facility]) Body height 58 [in_i] 58 [in_i] eCW1 ([facility]) Body mass index (BMI) [Ratio] 29.97 kg/m2 29.97 kg/m2 W1 ([facility]) Systolic blood pressure 112 mm[Hg] 112 mm[Hg] e CW1 ([facility]) Diastolic blood pressure 74 mm[Hg] 74 mm[Hg] eCW1 ([facility]) Body weight 145.2 [lb_av] 145.2 [lb_av] eCW1 ([facility]) Body weight 65.86 kg 65.86 kg eCW1 ([facility]) Body height 58 [in_i] 58 [in_i] eCW1 ([facility]) Body mass index (BMI) [Ratio] 30.34 kg/m2 30.34 kg/m2 eCW1 ([facility]) Systolic blood pressure 122 mm[Hg] 122 mm[Hg] e CW1 ([facility]) Diastolic blood pressure 76 mm[Hg] 76 mm[Hg] eCW1 ([facility]) Body weight 168.2 [lb_av] 168.2 [lb_av] eCW1 ([facility]) Body weight 76.29 kg 76.29 kg eCW1 ([facility]) Body height 58 [in_i] 58 [in_i] eCW1 ([facility]) Body mass index (BMI) [Ratio] 35.154 kg/m2 35.1 54 kg/m2 eCW1 ([facility]) Systolic blood pressure 126 mm[Hg] 126 mm[Hg] e CW1 ([facility]) Diastolic blood pressure 78 mm[Hg] 78 mm[Hg] eCW1 ([facility]) Body weight 166.2 [lb_av] 166.2 [lb_av] eCW1 ([facility]) Body weight 75.39 kg 75.39 kg eCW1 ([facility]) Body height 58 [in_i] 58 [in_i] eCW1 ([facility]) Body mass index (BMI) [Ratio] 34.73 kg/m2 34.73 kg/m2 eCW1 ([facility]) Body weight 166.4 [lb_av] 166.4 [lb_av] eCW1 ([facility]) Body weight 75.48 kg 75.48 kg eCW1 ([facility]) Body height 58 [in_i] 58 [in_i] eCW1 ([facility]) Body mass index (BMI) [Ratio] 34.778 kg/m2 34.7 78 kg/m2 eCW1 ([facility]) Systolic blood pressure 128 mm[Hg] 128 mm[Hg] e CW1 ([facility]) Diastolic blood pressure 78 mm[Hg] 78 mm[Hg] eCW1 ([facility]) Body height 58 [in_i] 58 [in_i] eCW1 ([facility]) Body mass index (BMI) [Ratio] 34.192 kg/m2 34.1 92 kg/m2 eCW1 ([facility]) Systolic blood pressure 132 mm[Hg] 132 mm[Hg] e CW1 ([facility]) Diastolic blood pressure 82 mm[Hg] 82 mm[Hg] eCW1 ([facility]) Body weight 163.6 [lb_av] 163.6 [lb_av] eCW1 ([facility]) Body weight 74.21 kg 74.21 kg eCW1 ([facility]) Body mass index (BMI) [Ratio] 34.06 kg/m2 34.06 kg/m2 eCW1 ([facility]) Body weight 163 [lb_av] 163 [lb_av] eCW1 ([facility]) Body weight 73.94 kg 73.94 kg eCW1 ([facility]) Body height 58 [in_i] 58 [in_i] eCW1 ([facility]) Body weight 163 [lb_av] 163 [lb_av] eCW1 ([facility]) Body height 58 [in_i] 58 [in_i] eCW1 ([facility]) Body mass index (BMI) [Ratio] 34.067 kg/m2 34.0 67 kg/m2 eCW1 ([facility]) Systolic blood pressure 120 mm[Hg] 120 mm[Hg] e CW1 ([facility]) Diastolic blood pressure 78 mm[Hg] 78 mm[Hg] eCW1 ([facility]) Body weight 165 [lb_av] 165 [lb_av] eCW1 ([facility]) Body height 58 [in_i] 58 [in_i] eCW1 ([facility]) Body mass index (BMI) [Ratio] 34.48 kg/m2 34.48 kg/m2 eCW1 ([facility]) Body weight 165 [lb_av] 165 [lb_av] eCW1 ([facility]) Body weight 74.84 kg 74.84 kg eCW1 ([facility]) Body height 58 [in_i] 58 [in_i] eCW1 ([facility]) Body mass index (BMI) [Ratio] 34.485 kg/m2 34.4 85 kg/m2 eCW1 ([facility]) Systolic blood pressure 118 mm[Hg] 118 mm[Hg] e CW1 ([facility]) Diastolic blood pressure 72 mm[Hg] 72 mm[Hg] eCW1 ([facility]) Body weight 164.8 [lb_av] 164.8 [lb_av] eCW1 ([facility]) Body height 58 [in_i] 58 [in_i] eCW1 ([facility]) Body mass index (BMI) [Ratio] 34.443 kg/m2 34.4 43 kg/m2 eCW1 ([facility]) Systolic blood pressure 122 mm[Hg] 122 mm[Hg] e CW1 ([facility]) Diastolic blood pressure 80 mm[Hg] 80 mm[Hg] eCW1 ([facility]) Systolic blood pressure 119 mm[Hg] 119 mm[Hg] M EDENT ([facility]) Diastolic blood pressure 72 mm[Hg] 72 mm[Hg] MEDENT ([facility]) Heart rate 115 /min 115 /min MEDENT ([facility]) Body height 58.5 [in_i] 58.5 [in_i] MEDENT ([facility]) 4'10.50" Body weight 166.12 [lb_av] 166.12 [lb_av] MEDEN T ([facility]) Body mass index (BMI) [Ratio] 34.1 kg/m2 34.1 k g/m2 MEDENT ([facility]) Oxygen saturation in Arterial blood by Pulse oximetry 98 % 98 % MEDENT ([facility] ) Body weight 164 [lb_av] 164 [lb_av] eCW1 ([facility]) Body weight 74.39 kg 74.39 kg eCW1 ([facility]) Body height 58 [in_i] 58 [in_i] eCW1 ([facility]) Body mass index (BMI) [Ratio] 34.276 kg/m2 34.2 76 kg/m2 eCW1 ([facility]) Systolic blood pressure 118 mm[Hg] 118 mm[Hg] e CW1 ([facility]) Diastolic blood pressure 72 mm[Hg] 72 mm[Hg] eCW1 ([facility]) Body weight 160.6 [lb_av] 160.6 [lb_av] eCW1 ([facility]) Body height 58 [in_i] 58 [in_i] eCW1 ([facility]) Body mass index (BMI) [Ratio] 33.565 kg/m2 33.5 65 kg/m2 eCW1 ([facility]) Systolic blood pressure 130 mm[Hg] 130 mm[Hg] e CW1 ([facility]) Diastolic blood pressure 78 mm[Hg] 78 mm[Hg] eCW1 ([facility]) Systolic blood pressure 122 mm[Hg] 122 mm[Hg] M EDENT ([facility] Body weight 160.00 [lb_av] 160.00 [lb_av] MEDEN T ([facility] ) Body mass index (BMI) [Ratio] 32.9 kg/m2 32.9 k g/m2 MEDENT ([facility] ) Oxygen saturation in Arterial blood by Pulse oximetry 97 % 97 % MEDENT ([facility] ) Diastolic blood pressure 80 mm[Hg] 80 mm[Hg] MEDENT ([facility]) Heart rate 80 /min 80 /min MEDENT ([facility] Body temperature 95.6 [degF] 95.6 [degF] MEDENT ([facility]) Body height 58.5 [in_i] 58.5 [in_i] MEDENT ([facility]) 4'10.50" Body weight 155.8 [lb_av] 155.8 [lb_av] eCW1 ([facility]) Body height 58 [in_i] 58 [in_i] eCW1 ([facility]) Body mass index (BMI) [Ratio] 32.562 kg/m2 32.5 62 kg/m2 eCW1 ([facility]) Systolic blood pressure 126 mm[Hg] 126 mm[Hg] e CW1 ([facility]) Diastolic blood pressure 66 mm[Hg] 66 mm[Hg] eCW1 ([facility]) Systolic blood pressure 112 mm[Hg] 112 mm[Hg] M EDENT ([facility]) Oxygen saturation in Arterial blood by Pulse oximetry 97 % 97 % MEDENT ([facility]) Diastolic blood pressure 76 mm[Hg] 76 mm[Hg] MEDENT ([facility]) Heart rate 114 /min 114 /min MEDENT ([facility]) Body temperature 97.5 [degF] 97.5 [degF] MEDENT ([facility]) Body height 58.5 [in_i] 58.5 [in_i] MEDENT ([facility]) 4'10.50" Body weight 157.00 [lb_av] 157.00 [lb_av] MEDEN T ([facility]) Body mass index (BMI) [Ratio] 32.3 kg/m2 32.3 k g/m2 MEDENT ([facility]) Body weight 154.0 [lb_av] 154.0 [lb_av] eCW1 ([facility]) Body height 58 [in_i] 58 [in_i] eCW1 ([facility]) Body mass index (BMI) [Ratio] 32.186 kg/m2 32.1 86 kg/m2 W1 ([facility]) Systolic blood pressure 110 mm[Hg] 110 mm[Hg] e CW1 ([facility]) Diastolic blood pressure 70 mm[Hg] 70 mm[Hg] eCW1 ([facility]) Oxygen saturation in Arterial blood by Pulse oximetry 98 % 98 % MEDENT ([facility]) Systolic blood pressure 119 mm[Hg] 119 mm[Hg] M EDENT ([facility] ) Diastolic blood pressure 76 mm[Hg] 76 mm[Hg] MEDENT ([facility] Heart rate 112 /min 112 /min MEDENT ([facility] ) Body temperature 97.6 [degF] 97.6 [degF] MEDENT ([facility] Body height 58.5 [in_i] 58.5 [in_i] MEDENT ([facility] 4'10.50" Body weight 151.38 [lb_av] 151.38 [lb_av] MEDEN T ([facility] ) Body mass index (BMI) [Ratio] 31.1 kg/m2 31.1 k g/m2 MEDENT ([facility] ) Body weight 150.4 [lb_av] 150.4 [lb_av] W1 ([facility]) Body weight 68.22 kg 68.22 kg W1 ([facility]) Body height 58 [in_i] 58 [in_i] eCW1 ([facility]) Body mass index (BMI) [Ratio] 31.434 kg/m2 31.4 34 kg/m2 W1 ([facility]) Systolic blood pressure 128 mm[Hg] 128 mm[Hg] e CW1 ([facility]) Diastolic blood pressure 84 mm[Hg] 84 mm[Hg] eCW1 ([facility]) Heart rate 78 /min 78 /min MEDENT ([facility] Body temperature 76.0 [degF] 76.0 [degF] MEDENT ([facility] ) Body height 58.5 [in_i] 58.5 [in_i] MEDENT ([facility] 4'10.50" Body weight 149.00 [lb_av] 149.00 [lb_av] MEDEN T ([facility] ) Body mass index (BMI) [Ratio] 30.6 kg/m2 30.6 k g/m2 MEDENT ([facility] ) Oxygen saturation in Arterial blood by Pulse oximetry 98 % 98 % MEDENT ([facility] ) Systolic blood pressure 126 mm[Hg] 126 mm[Hg] M EDENT ([facility]) Diastolic blood pressure 76 mm[Hg] 76 mm[Hg] MEDENT ([facility]) Body weight 152 [lb_av] 152 [lb_av] eCW1 ([facility]) Body weight 68.95 kg 68.95 kg eCW1 ([facility]) Body height 58 [in_i] 58 [in_i] eCW1 ([facility]) Body mass index (BMI) [Ratio] 31.768 kg/m2 31.7 68 kg/m2 eCW1 ([facility]) Systolic blood pressure 132 mm[Hg] 132 mm[Hg] e CW1 ([facility]) Diastolic blood pressure 90 mm[Hg] 90 mm[Hg] eCW1 ([facility]) Body weight 147 [lb_av] 147 [lb_av] eCW1 ([facility]) Body height [in_i] eCW1 ([facility]) Body mass index (BMI) [Ratio] 44.85 kg/m2 44.85 kg/m2 eCW1 ([facility]) Heart rate 113 /min 113 /min eCW1 (Count includes the [facility]) Respiratory rate 18 /min 18 /min eCW1 ([facility]) Body temperature 96.9 [degF] 96.9 [degF] eCW1 ( [facility]) Systolic blood pressure 136 mm[Hg] 136 mm[Hg] e CW1 ([facility]) Diastolic blood pressure 75 mm[Hg] 75 mm[Hg] eCW1 ([facility]) Systolic blood pressure 118 mm[Hg] 118 mm[Hg] M EDENT ([facility]) Diastolic blood pressure 65 mm[Hg] 65 mm[Hg] MEDENT ([facility]) Heart rate 96 /min 96 /min MEDENT ([facility]) Body mass index (BMI) [Ratio] 29.6 kg/m2 29.6 k g/m2 MEDENT ([facility]) Body temperature 97.0 [degF] 97.0 [degF] MEDENT ([facility]) Body height 58.5 [in_i] 58.5 [in_i] MEDENT ([facility]) 4'10.50" Body weight 144.00 [lb_av] 144.00 [lb_av] MEDEN T ([facility]) Oxygen saturation in Arterial blood by Pulse oximetry 98 % 98 % MEDENT ([facility]) Body weight 144.19 [lb_av] 144.19 [lb_av] MEDEN T ([facility]) Systolic blood pressure 114 mm[Hg] 114 mm[Hg] M EDENT ([facility]) Diastolic blood pressure 72 mm[Hg] 72 mm[Hg] MEDENT ([facility]) Heart rate 99 /min 99 /min [facility] Body temperature 96.8 [degF] 96.8 [degF] MEDENT ([facility]) Body height 58.5 [in_i] 58.5 [in_i] [facility] ([facility]) '10.50" Body mass index (BMI) [Ratio] 29.6 kg/m2 29.6 k g/m2 [facility] Oxygen saturation in Arterial blood by Pulse oximetry 98 % 98 % [facility] ([facility]) Patient Treatment Plan of Care Planned Activity Planned Date Details Description Data Source (s) insulin human, isophane 100 UNT/ML Injectable Suspensi on [Novolin N] 03/21/2021 12:00:00 AM EDT eCW1 ([facility]) Insulin Syringe/Needle 28G X 1/2" 0.5 ML 03/21/2021 12:00:00 AM EDT eCW1 ([facility]) Regular Insulin, Human 100 UNT/ML Injectable Solution [Novolin R] 03/21/2021 12:00:00 AM EDT eCW1 ([facility]) insulin human, isophane 100 UNT/ML Injectable Suspensi on [Novolin N] 03/21/2021 12:00:00 AM EDT eCW1 ([facility]) Insulin Syringe/Needle 28G X 1/2" 0.5 ML 03/21/2021 12:00:00 AM EDT eCW1 ([facility]) Regular Insulin, Human 100 UNT/ML Injectable Solution [Novolin R] 03/21/2021 12:00:00 AM EDT eCW1 ([facility]) insulin human, isophane 100 UNT/ML Injectable Suspensi on [Novolin N] 03/21/2021 12:00:00 AM EDT eCW1 ([facility]) Insulin Syringe/Needle 28G X 1/2" 0.5 ML 03/21/2021 12:00:00 AM EDT eCW1 ([facility]) Regular Insulin, Human 100 UNT/ML Injectable Solution [Novolin R] 03/21/2021 12:00:00 AM EDT eCW1 ([facility]) Alcohol Wipes 70 % 03/09/2021 12:00:00 AM EDT eCW1 ([facility]) Test Strips - 03/09/2021 12:00:00 AM EDT eCW1 ([facility]) Glucose Monitor - 03/09/2021 12:00:00 AM EDT eCW1 ([facility]) Lancets - 03/09/2021 12:00:00 AM EDT e CW1 ([facility]) Alcohol Wipes 70 % 03/08/2021 12:00:00 AM EDT eCW1 ([facility]) Test Strips - 03/08/2021 12:00:00 AM EDT eCW1 ([facility]) Lancets - 03/08/2021 12:00:00 AM EDT e CW1 ([facility]) Glucose Monitor - 03/08/2021 12:00:00 AM EDT eCW1 ([facility]) ferrous sulfate 325 MG Delayed Release Oral Tablet 02/28/2021 12 :00:00 AM EDT eCW1 ([facility]) ferrous sulfate 325 MG Delayed Release Oral Tablet 02/28/2021 12 :00:00 AM EDT eCW1 ([facility]) buspirone hydrochloride 5 MG Oral Tablet 01/31/2021 12:00:00 AM EDT eCW1 ([facility])
[2021-08-01 11:21] LABS: HEMOGLOBIN 13.3 g/dl (12.0-15.5); MEAN CORPUSCULAR HGB CONC 33.3 g/dl (32.0-36.5); MEAN CORPUSCULAR VOLUME 87.3 fl (80.0-96.0); PLATELET COUNT, AUTOMATED 248 10^3/uL (150-450); RED BLOOD COUNT 4.58 10^6/uL (4.00-5.40); WHITE BLOOD COUNT 5.7 10^3/uL (4.0-10.0)
[2021-08-01] MEDS ORDERED: LR 1,000 ML IV SCH ×2 (12:15→15:25)
[2021-08-01] MEDS ORDERED: ONDANSETRON 4MG/2ML VIAL IV PRN ×2 (12:15→15:25)
[2021-08-01] MEDS ORDERED: oxyCODONE 5MG TAB PO PRN ×2 (12:15→15:25)
[2021-08-01] MEDS ORDERED: fentaNYL 100 MCG/2 ML INJECTION (J3010) IV PRN ×2 (12:15→15:25)
[2021-08-01] MEDS ORDERED: HYDROMORPHONE HCL 0.5 MG/ 0.5 ML SYRINGE (J1170 PER 1) IV PRN ×2 (12:15→15:25)
[2021-08-01] MEDS ORDERED: LR 1,000 ML IV ONE (12:20)
[2021-08-01] MEDS ORDERED: SCOPOLAMINE 1MG TRANSDERMAL PATCH TOP ONE (12:20)
[2021-08-01] MEDS ORDERED: fentaNYL 100 MCG/2 ML INJECTION (J3010) As Ordered ONE (12:27)
[2021-08-01] MEDS ORDERED: MIDAZOLAM INJ 2MG/2ML VIAL (J2250 PER 1MG) As Ordered ONE (12:27)
[2021-08-01] MEDS ORDERED: LIDOCAINE 2% 100MG/5ML SDV (FOR ANES.) As Ordered ONE (12:35)
[2021-08-01] MEDS ORDERED: propofoL 200 MG/20 ML VIAL As Ordered ONE (12:35)
[2021-08-01] MEDS ORDERED: dexameTHASONE 4 MG/ML 1ML VIAL (J1100 PER 1MG) As Ordered ONE (12:46)
[2021-08-01] MEDS ORDERED: ONDANSETRON 4MG/2ML VIAL As Ordered ONE (12:46)
[2021-08-01] MEDS ORDERED: KETOROLAC 60MG 2ML VIAL As Ordered ONE ×2 (13:12→15:01)
[2021-08-01] MEDS ORDERED: BUPIVACAINE HCL 0.25% 30ML VIAL As Ordered ONE (13:32)
[2021-08-01] MEDS ORDERED: ACETAMINOPHEN 1000MG 100ML IV BTL (OFIRMEV) (J0131 PER 10MG) As Ordered ONE (13:33)
--- NOTE | 2021-08-01 13:51 | ROOPDOC ---
[facility] Report Of Operation Report of Operation DATE OF PROCEDURE: 08/01/21 PREPROCEDURE DIAGNOSES: History of right labial laceration. POSTPROCEDURE DIAGNOSES: History of right labial laceration. PROCEDURE PERFORMED: Bilateral labioplasty. SURGEON: Meri Sheets MD [employer]UPAL WEB DEVELOPER: Mayelin ANESTHESIA: Laryngeal mask airway. ESTIMATED BLOOD LOSS: Approximately 10 mL. SPECIMENS REMOVED: Bilateral segments of labia minora DESCRIPTION OF PROCEDURE: After informed consent was obtained and written consent was reviewed the patient was taken to the operating room where general anesthesia was performed via laryngeal mask airway. She was then placed in lithotomy position was prepped and draped in a normal sterile fashion. Timeout was then performed identifying the patient procedure to be performed as well as drug allergies. Labia had previously been demarcated remnants of the right labia minora was outlined this was compressed with a Azalia clamp was infused with quarter percent Marcaine and excised. Labia was then reapproximated with 3-0 Vicryl repeat. The area of the left labia previous demarcated was then marked with a pen and outlined using a Azalia clamp this area was infused and was transected to resemble her right labia. The area was then reapproximated using 3-0 Vicryl repeat. Hemostasis was then achieved patient was then taken on lithotomy position taken to recovery in stable condition. MERI SHEETS MD. Aug 01, 2021 13:51
[2021-08-01] MEDS ORDERED: PHENYLephrine 500MCG 5ML (100MCG/ML) SYRINGE As Ordered ONE (14:22)
[2021-08-01] MEDS ORDERED: PERCOCET 5MG/325MG TAB PO PRN (15:25)
[2021-08-01 16:42] VITALS: BP 129/71
[2021-08-01] MEDS ORDERED: KETOROLAC 30 MG/ML 1ML VIAL IV SCH (19:00)
== END 2021-08-01 16:50 | disposition home or self-care (01) ==
LOC: M SDC 10:51
PROVIDERS: ATTEND Obstetrics & Gynecology
DX: N90.69 Other specified hypertrophy of vulva (principal); E03.9 Hypothyroidism, unspecified; D64.9 Anemia, unspecified; E28.2 Polycystic ovarian syndrome; F43.10 Post-traumatic stress disorder, unspecified; F41.9 Anxiety disorder, unspecified; F32.9 Major depressive disorder, single episode, unspecified; Z79.899 Other long term (current) drug therapy; G43.909 Migraine, unspecified, not intractable, without status migrainosus; Z88.5 Allergy status to narcotic agent; Z88.1 Allergy status to other antibiotic agents
CPT/HCPCS: 36415; 56620; 81025; 85027; 86850; 86900; 86901; 88302; J0131; J1100; J1885; J2250; J2370; J2405; J3010

== ENCOUNTER → 2022-07-15 | Outpatient (REF) | payer OTHER | LOC: M LAB REF 17:16 | PROVIDERS: ATTEND Nurse Practitioner Family | DX: E06.3 Autoimmune thyroiditis (principal) ==

== ENCOUNTER → 2022-09-30 | Outpatient (CLI) | payer OTHER ==
[~2022-09-30] MED LIST changes: -EUTH50TA; +EUTH50TA PO
== END ==
LOC: M LABSMTC 11:50
PROVIDERS: ATTEND Anesthesiology
DX: Z01.812 Encounter for preprocedural laboratory examination (principal); Z11.52 Encounter for screening for COVID-19

== ENCOUNTER 2022-10-04 07:22 | Day surgery (SDC) | payer OTHER ==
[~2022-10-04] VITALS: Ht 147.3 cm; Wt 61.2 kg
[~2022-10-04 07:22] MED LIST changes: +BUPIVACAINE HCL 0.25% 30ML VIAL As Ordered ONE
[2022-10-04 07:58] LABS: HEMATOCRIT 37.5 % (36.0-47.0); HEMOGLOBIN 12.5 g/dl (12.0-15.5); MEAN CORPUSCULAR HEMOGLOBIN 30.5 pg (27.0-33.0); MEAN CORPUSCULAR HGB CONC 33.3 g/dl (32.0-36.5); MEAN CORPUSCULAR VOLUME 91.5 fl (80.0-96.0); PLATELET COUNT, AUTOMATED 273 10^3/uL (150-450); WHITE BLOOD COUNT 10.2 10^3/uL (4.0-10.0)
[2022-10-04] MEDS ORDERED: MIDAZOLAM INJ 2MG/2ML VIAL As Ordered ONE (08:11)
[2022-10-04] MEDS ORDERED: fentaNYL 100 MCG/2 ML INJECTION As Ordered ONE (08:12)
[2022-10-04] MEDS ORDERED: ROCURONIUM BROMIDE 50MG/5ML VIAL As Ordered ONE (08:13)
[2022-10-04] MEDS ORDERED: ONDANSETRON 4MG 2ML VIAL As Ordered ONE ×2 (08:13→09:41)
[2022-10-04] MEDS ORDERED: ACETAMINOPHEN 1000MG 100ML IV BAG As Ordered ONE (08:13)
[2022-10-04] MEDS ORDERED: SUGAMMADEX SODIUM 500 MG/5 ML VIAL (BRIDION) As Ordered ONE (08:13)
[2022-10-04] MEDS ORDERED: LIDOCAINE 2% 100MG/5ML SDV (FOR ANES.) As Ordered ONE (08:13)
[2022-10-04] MEDS ORDERED: KETOROLAC 60MG 2ML VIAL As Ordered ONE (08:13)
[2022-10-04] MEDS ORDERED: propofoL 200 MG/20 ML VIAL As Ordered ONE (08:13)
[2022-10-04 08:37] LABS: PARTIAL THROMBOPLASTIN TIME 28.7 SECONDS (24.8-34.2)
[2022-10-04 08:38] LABS: INR 2.15; PROTHROMBIN TIME 24.4 SECONDS (12.5-14.5)
[2022-10-04] MEDS ORDERED: OXYC1TAB23 PO (08:48)
[2022-10-04] MEDS ORDERED: HYDROMORPHONE HCL 0.5 MG/ 0.5 ML SYRINGE IV PRN (09:40)
[2022-10-04] MEDS ORDERED: ONDANSETRON 4MG 2ML VIAL IV PRN (09:40)
[2022-10-04] MEDS ORDERED: LR 1,000 ML IV SCH (09:40)
[2022-10-04] MEDS ORDERED: oxyCODONE 5MG TAB PO PRN (09:40)
[2022-10-04] MEDS ORDERED: fentaNYL 100 MCG/2 ML INJECTION IV PRN (09:40)
[2022-10-04 11:49] VITALS: BP 121/70
== END 2022-10-04 11:55 | disposition home or self-care (01) ==
LOC: M SDC 07:22
PROVIDERS: ATTEND Obstetrics & Gynecology
DX: Z30.2 Encounter for sterilization (principal); E06.3 Autoimmune thyroiditis; G43.909 Migraine, unspecified, not intractable, without status migrainosus; Z79.899 Other long term (current) drug therapy; Z79.890 Hormone replacement therapy; Z88.1 Allergy status to other antibiotic agents; Z88.5 Allergy status to narcotic agent
CPT/HCPCS: 36415; 58661; 81025; 85027; 85610; 85730; 86850; 86900; 86901; 88302; J1100; J2405

== ENCOUNTER → 2022-12-13 | Outpatient (REF) | payer OTHER ==
[~2022-12-13] MED LIST changes: -BUPIVACAINE HCL 0.25% 30ML VIAL As Ordered ONE; +OXYC1TAB23 PO
[2022-12-13 18:39] LABS: BASO # 0.1 10^3/uL (0.0-0.2); BASO % 1.3 % (0.0-1.0); EOS # 0.1 10^3/uL (0.0-0.5); EOS % 1.7 % (0.0-3.0); HEMATOCRIT 41.5 % (36.0-47.0); HEMOGLOBIN 13.5 g/dl (12.0-15.5); LYMPH # 1.8 10^3/uL (1.5-5.0); LYMPH % 35.4 % (24.0-44.0); MEAN CORPUSCULAR HEMOGLOBIN 30.2 pg (27.0-33.0); MEAN CORPUSCULAR HGB CONC 32.5 g/dl (32.0-36.5); MEAN CORPUSCULAR VOLUME 92.8 fl (80.0-96.0); MONO # 0.3 10^3/uL (0.0-0.8); MONO % 5.6 % (2.0-8.0); NEUTROPHILS # 2.9 10^3/uL (1.5-8.5); NEUTROPHILS % 55.6 % (36.0-66.0); PLATELET COUNT, AUTOMATED 221 10^3/uL (150-450); RED BLOOD COUNT 4.47 10^6/uL (4.00-5.40); WHITE BLOOD COUNT 5.2 10^3/uL (4.0-10.0)
[2022-12-13 19:07] LABS: ALBUMIN 4.3 G/DL (3.2-5.2); ALKALINE PHOSPHATASE 73 U/L (46-116); ALT/SGPT 14 U/L (7.0-40); AST/SGOT < 8 U/L (<34); BILIRUBIN,TOTAL 0.9 MG/DL (0.3-1.2); BLOOD UREA NITROGEN 12 MG/DL (9-23); CARBON DIOXIDE LEVEL 25 MMOL/L (20-31); CHLORIDE LEVEL 109 MMOL/L (98-107); CHOLESTEROL LEVEL 181 MG/DL (<200); CHOLESTEROL RISK RATIO 4.75 (<5); CREATININE FOR GFR 0.88 MG/DL (0.55-1.30); GLOMERULAR FILTRATION RATE > 60.0 (>60); GLUCOSE, FASTING 82 MG/DL (60-100); HDL CHOLESTEROL 38.1 MG/DL (>40); LDL CHOLESTEROL 120.3 MG/DL (<100); NON-HDL-C 142.9 MG/DL; POTASSIUM SERUM 4.4 MMOL/L (3.5-5.1); SODIUM LEVEL 142 MMOL/L (136-145); TOTAL PROTEIN 7.3 G/DL (5.7-8.2); TRIGLYCERIDES LEVEL 113 MG/DL (<150)
[2022-12-13 19:08] LABS: PROLACTIN 8.37 NG/ML; THYROID STIMULATING HORMONE 1.696 uIU/ML (0.55-4.78)
== END ==
LOC: M LAB REF 16:28
PROVIDERS: ATTEND Pediatrics
DX: G43.909 Migraine, unspecified, not intractable, without status migrainosus (principal); E06.3 Autoimmune thyroiditis

== ENCOUNTER → 2023-09-22 | Outpatient (REF) | payer OTHER, MEDICAID ==
[~2023-09-22] MED LIST changes: -AMIT25TA17 PO; +AMIT25TA19 PO
== END ==
LOC: M LAB REF 17:16
PROVIDERS: ATTEND Pediatrics
DX: E06.3 Autoimmune thyroiditis (principal)

== ENCOUNTER → 2023-11-05 | Outpatient (CLI) | payer OTHER ==
[~2023-11-05] MED LIST changes: +FERR325T14 PO; -IRON325T9 PO
== END ==
LOC: M RAD 08:12
PROVIDERS: ATTEND Physician Assistant Medical
DX: J32.9 Chronic sinusitis, unspecified (principal)

== ENCOUNTER 2023-11-27 13:41 | Outpatient (RCR) | payer OTHER | END 2023-11-30 | LOC: M PT 13:41 | PROVIDERS: ATTEND Psychiatry & Neurology Neurology | DX: M54.2 Cervicalgia (principal); R20.2 Paresthesia of skin ==

== ENCOUNTER 2023-12-22 08:30 | Outpatient (RCR) | payer OTHER | END 2023-12-30 | LOC: M PT 08:30 | PROVIDERS: ATTEND Psychiatry & Neurology Neurology | DX: M54.2 Cervicalgia (principal); R20.2 Paresthesia of skin ==

== ENCOUNTER → 2024-01-05 | Outpatient (REF) | payer OTHER, MEDICAID | LOC: M LAB REF 12:44 | PROVIDERS: ATTEND Pediatrics | DX: E06.3 Autoimmune thyroiditis (principal) ==

== ENCOUNTER → 2024-03-22 | Outpatient (CLI) | payer OTHER ==
[~2024-03-22] MED LIST changes: +LEVO88TA3 PO; +MAGN500T2 PO; +TOPI-21 PO; +VITA100093 PO
[2024-03-23 15:23] LABS: ANA PATTERN Cytoplasmic (NEGATIVE); ANA SCREEN, IFA POSITIVE (NEGATIVE)
== END ==
LOC: M RAD 10:56
PROVIDERS: ATTEND Pediatrics
DX: M54.50 Low back pain, unspecified (principal)

== ENCOUNTER 2024-04-20 10:42 | Day surgery (SDC) | payer OTHER ==
[~2024-04-20] VITALS: Ht 147.3 cm; Wt 56.9 kg
[2024-04-20] MEDS ORDERED: LR 1,000 ML IV SCH (11:20)
[2024-04-20] MEDS ORDERED: HYDROmorphone HCL 2MG/ML 1ML VIAL As Ordered ONE (12:08)
[2024-04-20] MEDS ORDERED: MIDAZOLAM INJ 2MG/2ML VIAL As Ordered ONE (12:09)
[2024-04-20] MEDS ORDERED: fentaNYL 100 MCG/2 ML INJECTION As Ordered ONE (12:09)
[2024-04-20] MEDS ORDERED: LIDOCAINE 2% 100MG/5ML SDV (FOR ANES.) As Ordered ONE (12:10)
[2024-04-20] MEDS ORDERED: ROCURONIUM BROMIDE 50MG/5ML VIAL As Ordered ONE (12:10)
[2024-04-20] MEDS ORDERED: SUGAMMADEX SODIUM 500 MG/5 ML VIAL (BRIDION) As Ordered ONE (12:10)
[2024-04-20] MEDS ORDERED: ACETAMINOPHEN 1000MG 100ML IV BAG As Ordered ONE (12:11)
[2024-04-20] MEDS ORDERED: ONDANSETRON 4MG 2ML VIAL As Ordered ONE (12:11)
[2024-04-20] MEDS ORDERED: propofoL 200 MG/20 ML VIAL As Ordered ONE (12:16)
[2024-04-20] MEDS ORDERED: METOCLOPRAMIDE INJ 10MG/2ML VIAL As Ordered ONE (13:30)
[2024-04-20] MEDS: SODIUM CHLORIDE 0.9% NASAL GEL 15GM (AYR) As Ordered ONE (13:34)
[2024-04-20] MEDS: EPINEPHrine 1MG/ML INJ 30ML MD-VIAL As Ordered ONE (13:35)
[2024-04-20] MEDS: METHYLENE BLUE 0.5% (5MG/ML) 10 ML AMP (PROVAYBLUE) As Ordered ONE (13:36)
[2024-04-20] MEDS: LIDOCAINE W/EPINEPHRINE 1% 20ML VIAL As Ordered ONE (13:40)
[2024-04-20] MEDS: fentaNYL 100 MCG/2 ML INJECTION IV PRN (15:16)
[2024-04-20] MEDS: ONDANSETRON 4MG 2ML VIAL IV PRN (15:59)
[2024-04-20 17:00] VITALS: BP 131/69; TEMP 97.9; O2SAT 98
== END 2024-04-20 17:12 | disposition home or self-care (01) ==
LOC: M SDC 10:42
PROVIDERS: ATTEND Otolaryngology
DX: J34.2 Deviated nasal septum (principal); J34.3 Hypertrophy of nasal turbinates; R09.81 Nasal congestion; E06.3 Autoimmune thyroiditis; E28.2 Polycystic ovarian syndrome; Z79.890 Hormone replacement therapy; Z79.899 Other long term (current) drug therapy; G43.909 Migraine, unspecified, not intractable, without status migrainosus; Z90.89 Acquired absence of other organs; Z88.5 Allergy status to narcotic agent; Z88.2 Allergy status to sulfonamides; Z88.1 Allergy status to other antibiotic agents
CPT/HCPCS: 30520; 30802; J0131; J0171; J1100; J1170; J2250; J2405; J2765; J3010; Q9968

== ENCOUNTER 2024-05-14 12:38 | Outpatient (RCR) | payer OTHER | END 2024-05-31 | LOC: M PT 12:38 | PROVIDERS: ATTEND Orthopaedic Surgery | DX: M54.50 Low back pain, unspecified (principal) ==

== ENCOUNTER → 2024-08-17 | Outpatient (REF) | payer BC, OTHER | LOC: M LAB REF 16:46 | PROVIDERS: ATTEND Pediatrics | DX: E06.3 Autoimmune thyroiditis (principal) ==

== ENCOUNTER 2025-06-01 12:48 | Emergency (ER) | payer BC ==
[~2025-06-01] VITALS: Ht 147.3 cm; Wt 53.7 kg
[~2025-06-01 12:48] MED LIST changes: +TOPI-256 PO; -TOPI25TA10 PO
[2025-06-01] MEDS: ONDANSETRON 4MG 2ML VIAL IV ONE (13:37)
[2025-06-01] MEDS: NS (Normal Saline) 0.9% 1,000 ML IV ONE (13:37)
[2025-06-01 13:38] LABS: BASO # 0.1 10^3/uL (0.0-0.2); BASO % 0.7 % (0.0-1.0); EOS # 0.1 10^3/uL (0.0-0.5); EOS % 1.9 % (0.0-3.0); LYMPH # 2.0 10^3/uL (1.5-5.0); LYMPH % 29.0 % (24.0-44.0); MONO # 0.4 10^3/uL (0.0-0.8); MONO % 5.4 % (2.0-8.0); NEUTROPHILS # 4.3 10^3/uL (1.5-8.5); NEUTROPHILS % 62.7 % (36.0-66.0); PLATELET COUNT, AUTOMATED 267 10^3/uL (150-450)
[2025-06-01] MEDS ORDERED: ISOVUE-370 76% 100 ML VIAL As Ordered ONE (13:41)
[2025-06-01 14:08] LABS: ALT/SGPT 19.0 U/L (7.0-40); AST/SGOT 14.0 U/L (<34)
[2025-06-01] MEDS: KETOROLAC 30 MG/ML 1 ML VIAL IV ONE (14:38)
[2025-06-01] MEDS: MORPHINE 4 MG/ML 1 ML VIAL IV PRN (15:50)
[2025-06-01] MEDS ORDERED: PERC5TAB12 PO (18:13)
[2025-06-01] MEDS ORDERED: AMOX875T2 PO (18:13)
[2025-06-01 18:20] VITALS: BP 125/74; TEMP 98.4; O2SAT 98
== END 2025-06-01 18:26 | disposition home or self-care (01) ==
LOC: M ED 12:48
DX: K52.9 Noninfective gastroenteritis and colitis, unspecified (principal); E11.9 Type 2 diabetes mellitus without complications; E28.2 Polycystic ovarian syndrome; Z88.1 Allergy status to other antibiotic agents; Z88.2 Allergy status to sulfonamides; Z88.5 Allergy status to narcotic agent; Z79.2 Long term (current) use of antibiotics; Z79.899 Other long term (current) drug therapy
CPT/HCPCS: 70450; 74177; 80047; 80076; 83605; 83690; 85025; 87486; 87507; 87581; 87633; 87798; 96361; 96374; 96375; 99284; J1885; J2405; Q9967

== ENCOUNTER → 2025-07-15 | Outpatient (REF) | payer BC ==
[~2025-07-15] MED LIST changes: +AMOX875T2 PO; +PERC5TAB12 PO
== END ==
LOC: M LAB REF 14:20
PROVIDERS: ATTEND Pediatrics
DX: E06.3 Autoimmune thyroiditis (principal); R74.8 Abnormal levels of other serum enzymes

== ENCOUNTER 2025-07-21 09:32 | Emergency (ER) | payer BC ==
[~2025-07-21] VITALS: Ht 147.3 cm; Wt 51.4 kg
[2025-07-21] MEDS: ACETAMINOPHEN *IV* 1,000 MG in IV 1 EA IV ONE (12:35)
[2025-07-21] MEDS: NS (Normal Saline) 0.9% 1,000 ML IV ONE (12:36)
[2025-07-21] MEDS ORDERED: ISOVUE-370 76% 100 ML VIAL As Ordered ONE (12:38)
[2025-07-21 12:45] LABS: BASO # 0.1 10^3/uL (0.0-0.2); BASO % 1.0 % (0.0-1.0); EOS # 0.2 10^3/uL (0.0-0.5); EOS % 4.2 % (0.0-3.0); LYMPH # 1.7 10^3/uL (1.5-5.0); LYMPH % 33.5 % (24.0-44.0); MONO # 0.3 10^3/uL (0.0-0.8); MONO % 5.8 % (2.0-8.0); NEUTROPHILS # 2.8 10^3/uL (1.5-8.5); NEUTROPHILS % 55.3 % (36.0-66.0); PLATELET COUNT, AUTOMATED 268 10^3/uL (150-450)
[2025-07-21 14:04] VITALS: BP 105/53; TEMP 97.3; O2SAT 100
== END 2025-07-21 14:40 | disposition home or self-care (01) ==
LOC: M ED 09:32
DX: M54.2 Cervicalgia (principal); R51.9 Headache, unspecified; W19.XXXA Unspecified fall, initial encounter; Z88.1 Allergy status to other antibiotic agents; Z88.2 Allergy status to sulfonamides; Z88.5 Allergy status to narcotic agent; Z79.2 Long term (current) use of antibiotics; Z79.899 Other long term (current) drug therapy
CPT/HCPCS: 70450; 70496; 70498; 72125; 80047; 85025; 96365; 96366; 96375; 99283; J0134; J2765; J2919; Q9967